=== PATIENT | female | born 1955 | race Caucasian/White ===

== ENCOUNTER 2020-02-18 10:23 | Emergency (ER) | payer MEDICARE, MEDICAID, SELFPAY ==
[2020-02-18 10:27] VITALS: BP 145/127; PULSE 98; RESP 16; TEMP 36.8; O2SAT 99; BMI 25.1
--- NOTE | 2020-02-18 10:38 | CT_ITS ---
WS: [id number] CT ABDOMEN PELVIS TECHNIQUE: Contrast-enhanced CT of the abdomen and pelvis with coronal and sagittal reformatted image s. CLINICAL INFORMATION: pain COMPARISON: None. DLP: 452.[address] scans at [facility] use at least one of these dose optimization techniques: automat ed exposure control; mA and/or kV adjustment per patient size (includes targeted exams where dose is matched to clinical indication); or iterative reconstruction. FINDINGS: Bowel wall thickening with surrounding induration and submucosal enhancement involving the right asce nding colon suspicious for colitis. Apparent stricture at the right hepatic flexure transverse colon junction. Transverse colon constipation. Recommend follow-up with colonoscopy. Normal ileocecal valve. Descending colon is decompressed. Normal sigmoid colon. No free fluid in the pelvis. Evidence of postoperative changes involving the rectum. Normal liver. Normal portal vein and splenic vein. Small hepatic cyst at the dome the liver measuring 9 mm. Small left renal cyst measurin g 12 mm. Normal spleen. Normal GE junction. Adrenal glands are normal. Small left adrenal adenoma maki suring 14 mm. Normal renal parenchymal enhancement. No hydronephrosis. Aortic calcification. Normal pancreas. No abdominal lymphadenopathy. Slightly aneurysmal infrarenal abdominal aorta measuring 2.1 x 2.3 cm. Lung bases are well aerated. Attempted notification STIVEN Zuñiga at 02/18/2020 12:[address]/CT abdomen pelvis w con* [id number] IMPRESSION: 1. Induration with submucosal enhancement and slight inflammatory stranding in volving the right ascending colon consistent with colitis. 2. Apparent stricturing involving the right hepatic flexure and transverse col on junction. Recommend further evaluation with colonoscopy. 3. Transverse colon constipation. 4. No free fluid in the pelvis. 5. Evidence of prior low rectal anastomosis. 6. Small slightly aneurysmal infrarenal abdominal aorta measuring 2.1 x 2.3 cm . 7. Small hepatic cyst and left renal cyst.
--- NOTE | 2020-02-18 10:38 | ED_ITS ---
HPI - Abdominal Pain General: Chief Complaint: Abdominal Pain Stated Complaint: ABD PAIN/N/V Time Seen by Provider: 02/18/20 10:25 History of Present Illness: HPI narrative: Patient arrives via ambulance with complaint of left lower quadrant abdominal pain. Patient says it woke her up from sleep this morning she has had some problems constipation last couple days says she has a history of a large bowel resection. Did take a Zofran this morning she said which helps. Denies any fever chills vomiting does have some nausea MD elicited complaint: abdominal pain Pertinent past history: constipation Onset (ago): hour(s) Pain Consistency: constant Location: LLQ Severity: severe Quality: cramping and aching Radiation: none Migration to: no migration Exacerbating factors: nothing Relieving factors: nothing Associated Symptoms: Reports nausea; Denies chills and fever(s) Review of Systems Const: Denies: fever(s), chills or body aches Eyes: Denies: change in vision or blurry vision ENMT: Denies: throat pain or nasal congestion Card: Denies: chest pain or dyspnea on exertion Resp: Denies: dyspnea, productive cough or non-productive cough GI: Reports: abdominal pain and nausea Musc: Denies: extremity pain Skin/Breast: Denies: rash Neuro: Denies: headache(s) Psych: Denies: anxiety or depression Simon/Lymph: Denies: easy bruising PFSH ED PFSH: Social History (Updated 02/18/20 @ 10:33 by Debbi Avila RN) Smoking and tobacco status: current every day smoker Alcohol intake: current Substance/Drug Use: current Substance/Drug use frequency: daily Substance/Drug use type: Marijuana Physical Exam Const: COMMON NORMALS: no acute distress, average body habitus and patient oriented x3 HENMT: COMMON NORMALS: normocephalic HEAD & SCALP: normal to inspection and normocephalic FACE & SINUS: normal facial exam Eye: COMMON NORMALS: conjunctivae normal GENERAL EYE: appearance normal, both eyes and all related structures CONJUNCTIVA: Yes conjunctivae normal Neck/C-Spine: COMMON NORMALS: no JVD Chest: COMMONS NORMALS: normal inspection of the chest Resp: COMMON NORMALS: normal respiratory effort and clear to auscultation bilaterally AUSCULTATION: clear to auscultation bilaterally Cardio: COMMON NORMALS: no JVD, regular rate and regular rhythm RATE: regular rate RHYTHM: regular rhythm GI: COMMON NORMALS: Normal to inspection, nondistended, normoactive bowel sounds present PALPATION: Yes Tenderness to palpation present (GI) Details: LLQ Extremity: COMMON NORMALS: normal to inspection and full ROM Neuro: COMMON NORMALS: patient oriented x3 Course Vital Signs: Vital signs: Vital Signs Temperature 98.2 F 02/18/20 10:27 Pulse Rate 105 H 02/18/20 11:00 Respiratory Rate 24 H 02/18/20 11:00 Blood Pressure 123/91 02/18/20 11:00 Pulse Oximetry 98 02/18/20 11:00 MDM - Abdominal Pain MDM Narrative: Medical decision making narrative: Discussed case with Dr. Glasgow went over radiology and lab results. Patient is aware of x-ray results and that she has some colitis and that she needs to get her colonoscopy schedul ed. Patient states she is seen a specialist in [place] who is possibly referred to a specialist who does colonoscopies for people with the problems that she has. She saw her primary child care aide just last week and had lab work done and walk get a referral for colonoscopy from them. Patient does have pain medicine at home. Is to follow back up here if significant worsening problems happen Lab Data: Labs: Lab Results 02/18/20 02/18/20 02/18/20 Range/Units 10:51 10:51 11:06 WBC 17.2 H (4.0-10.0) 10^3/ uL RBC 4.58 (4.1-5.3) 10^6/u L Hgb 13.8 (11.5-15.3) g/dL Hct 41.1 (37.0-47.0) % MCV 89.7 (81-99) fL MCH 30.1 (28.0-34.0) pg MCHC 33.6 (30.0-36.0) g/dL RDW 12.7 (12.1-15.1) % Plt Count 246 (130-400) 10^3/c mm MPV 10.6 H (7.4-10.4) fL Neut % (Auto) 91.3 % Lymph % (Auto) 6.3 % [place] % (Auto) 1.7 % Eos % (Auto) 0.0 % Baso % (Auto) 0.3 % Neut # (Auto) 15.66 H (1.8-7.7) 10^3/u L Lymph # (Auto) 1.1 (0.8-4.8) 10^3/u L [place] # (Auto) 0.3 (0.2-0.9) 10^3/u L Eos # (Auto) 0.0 (0.0-0.8) 10^3/u L Baso # (Auto) 0.1 (0.0-0.1) 10^3/u L Nucleated RBC % (a uto) 0 % Nucleated RBCs # 0.0 /100WBC Sodium 136 (136-145) mmol/L Potassium 4.2 (3.5-5.1) mmol/L Chloride 104 (98-107) mmol/L Carbon Dioxide 20 L (22-29) mmol/L Anion Gap 16.2 (5-19) BUN 13 (8-23) mg/dL Creatinine 0.7 (0.5-0.9) mg/dL GFR Calculation 84.0 L (90-130) mL/min Glucose 132 H (65-115) mg/dL Calculated Osmolal ity 280 L (285-295) mOsm/k g Calcium 9.6 (8.5-10.5) mg/dL Total Bilirubin 0.5 (0.15-1.2) mg/dL AST 17 (0-32) U/L ALT 10 (0-33) U/L Alkaline Phosphata se 144 H (35-105) IU/L Total Protein 7.2 (6.6-8.7) g/dL Albumin 4.4 (3.5-5.2) g/dL Globulin 2.8 (1.3-4.6) g/dL Lipase 22 (13-60) U/L Urine Color Yellow (Yellow) Urine Appearance Clear (CLEAR) Urine pH 7 (5-7) Ur Specific Gravit y 1.010 (1.005-1.030) Urine Protein Trace (Negative) Urine Glucose (UA) Norm (Normal) Urine Ketones 2+ H (Negative) Urine Blood Neg (Negative) Urine Nitrate Negative (Negative) Urine Bilirubin 1+ H (NEGATIVE) Urine Urobilinogen 4 H (Negative) mg/dL Ur Leukocyte Libby ase Negative (Negative) Urine RBC 0-4 H (0-2) /hpf Urine WBC 0-4 H (0-5) /hpf Ur Squamous Epith Cells 5-10 H (0-5) Amorphous Sediment Not Reportable Urine Bacteria 1+ H (NONE) Urine Mucus 3+ Discharge Plan Discharge Patient Disposition: Home Clinical Impression: Colitis Condition: Stable Prescriptions: New Flagyl 500 mg tablet 500 mg PO BID 7 Days Qty: 14 RF: 0 ciprofloxacin HCl 500 mg tablet 500 mg PO BID Qty: 14 RF: 0 No Action simvastatin 10 mg tablet 10 mg PO DAILY RF: 0 oxycodone-acetaminophen 5-325 mg tablet 1 tab PO TID PRN (Reason: Pain) RF: 0 amlodipine 10 mg tablet 10 mg PO DAILY RF: 0 albuterol sulfate 90 mcg/actuation HFA aerosol inhaler 1 puff INHALATION Q6H PRN (Reason: Shortness Of Breath) RF: 0 amitriptyline 100 mg tablet 100 mg PO DAILY RF: 0 Discharge Orders: Discharge Order (Routine); Ordered 02/18/20 Ordered By: Paolo Bahena Discharge Diet: Clear Liquid Discharge Activity: Increase activity as tolerated Patient Instructions: Infectious Colitis (ED) Activity Restrictions/Additional Instructions: Follow-up with medical provider as directed. Take medications as prescribed. Return to the ER or your medical provider if condition worsens. Please read and understand discharge instructions. If any questions ask please. Make sure you call your specialist to see in [place] to get that colonoscopy scheduled as soon as possible continue on laxatives and stool softeners and high-fiber diet. Coding Level of Care Code ED Air Breaker Operator for Chg Fwd Exam Comprehensive
[2020-02-18 10:59] LABS: Basophils # 0.1 10^3/uL (0.0-0.1); Basophils % 0.3 %; Hematocrit 41.1 % (37.0-47.0); Hemoglobin 13.8 g/dL (11.5-15.3); Lymphocytes # 1.1 10^3/uL (0.8-4.8); Lymphocytes % 6.3 %; Mean Corpuscular HGB Conc 33.6 g/dL (30.0-36.0); Mean Corpuscular Hemoglobin 30.1 pg (28.0-34.0); Mean Corpuscular Volume 89.7 fL (81-99); Mean Platelet Volume 10.6 fL (7.4-10.4); Monocytes # 0.3 10^3/uL (0.2-0.9); Monocytes % 1.7 %; Neutrophils # 15.66 10^3/uL (1.8-7.7); Neutrophils % 91.3 %; Nucleated Red Blood Cells % 0 %; Platelet Count 246 10^3/cmm (130-400); Red Blood Count 4.58 10^6/uL (4.1-5.3); Red Cell Distribution Width 12.7 % (12.1-15.1); White Blood Count 17.2 10^3/uL (4.0-10.0)
[2020-02-18 11:00] VITALS: BP 123/91; PULSE 105; RESP 24; O2SAT 98
[2020-02-18] MEDS: sodium chloride 0.9% 1,000 ML 999 ML IV (11:21)
[2020-02-18 11:26] LABS: Alanine Aminotransferase 10 U/L (0-33); Albumin Level 4.4 g/dL (3.5-5.2); Alkaline Phosphatase 144 IU/L (35-105); Blood Urea Nitrogen 13 mg/dL (8-23); Calcium 9.6 mg/dL (8.5-10.5); Carbon Dioxide 20 mmol/L (22-29); Chloride 104 mmol/L (98-107); Globulin 2.8 g/dL (1.3-4.6); Glucose 132 mg/dL (65-115); Lipase 22 U/L (13-60); Osmolality Calculated 280 mOsm/kg (285-295); Sodium 136 mmol/L (136-145); Total Bilirubin 0.5 mg/dL (0.15-1.2); Total Protein 7.2 g/dL (6.6-8.7)
[2020-02-18 11:30] LABS: Anion Gap 16.2 (5-19); Aspartate Amino Transferase 17 U/L (0-32); Potassium 4.2 mmol/L (3.5-5.1)
[2020-02-18 11:37] LABS: Bilirubin Urine 1+ (NEGATIVE); Blood Urine Neg (Negative); Glucose Urine UA Norm (Normal); Ketones Urine 2+ (Negative); Nitrate Urine Negative (Negative); Protein Urine Trace (Negative); Urine Appearance Clear (CLEAR); Urine Color Yellow (Yellow); pH Urine 7 (5-7)
[2020-02-18 11:38] LABS: Add Urine Microscopic? YES; Leukocyte Esterase Urine Negative (Negative); Urobilinogen Urine 4 mg/dL (Negative)
[2020-02-18 11:45] LABS: Mucus Urine 3+
[2020-02-18 11:46] LABS: Add Urine Culture? No; Bacteria Urine 1+; RBC Urine 0-4 /hpf (0-2); WBC Urine 0-4 /hpf (0-5)
[2020-02-18] MEDS: iohexol 300 mg/mL 100 mL Btl IV (11:47)
[2020-02-18 12:40] VITALS: RESP 18
[2020-02-18] MEDS: morphine 4 mg/mL SDV 1 mL IVP (12:40)
[2020-02-18] MEDS: ondansetron 2 mg/ML SDV 2 mL 4 MG IVP (12:41)
[2020-02-18 13:06] VITALS: BP 154/83; PULSE 85; RESP 16; TEMP 37.2; O2SAT 97
== END 2020-02-18 13:14 | disposition home or self-care (01) ==
PROVIDERS: Emergency Provider Nurse Practitioner Family
DX: K52.9 Noninfective gastroenteritis and colitis, unspecified (principal); F17.210 Nicotine dependence, cigarettes, uncomplicated
CPT/HCPCS: 12345; 74177; 80053; 81001; 83690; 85025; 96361; 96374; 96375; 99283; J2270; J2405; J7030; Q9967

== ENCOUNTER 2020-08-12 09:38 | Emergency (ER) | payer MEDICARE, MEDICAID, SELFPAY ==
[2020-08-12 09:52] VITALS: PULSE 93; RESP 18; TEMP 36.9; O2SAT 97; BMI 23.3
--- NOTE | 2020-08-12 10:09 | W.ED.SOB ---
HPI - SOB/Dyspnea General: Chief Complaint: Shortness of Breath/Dyspnea Stated Complaint: Cough/Pain in chest/back Time Seen by Provider: 08/12/20 09:42 History of Present Illness: HPI Narrative: 64-year-old female presents emergency room with complaint of right-sided chest pain subjective fever cough myalgias. She has some distortion of her sense of taste and smell as well. She denies any loose stools. She regularly smokes. She is not on oxygen usually. No history of heart disease pain does not radiate into the neck or back no diaphoresis cough is been moderately productive. MD elicited complaint: shortness of breath, cough, pain with inspiration and chest pain Pertinent past history: COPD Onset (ago): day(s) (2) Timing: constant Severity: moderate Exacerbating factors: coughing and inspiration Relieving factors: rest Known history of: COPD Associated symptoms: Reports chest congestion, chest pain and cough; Deny abdominal pain, diaphoresis, dizziness, extremity pain, fever(s), hemoptysis, lightheadedness, myalgias, nausea, orthopnea, palpitations, paresthesias, polydipsia, polyuria, rash, sense of impending doom, syncope or vomiting Treatment prior to arrival: none Review of Systems Const: Denies: fever(s) or diaphoresis ENMT: Denies: throat pain, ear or mastoid pain, nasal discharge or nasal congestion Card: Reports: chest pain; Denies: palpitations, lightheadedness, syncope or orthopnea Resp: Reports: chest congestion; Denies: hemoptysis GI: Denies: abdominal pain, nausea or vomiting : Denies: flank pain, difficulty voiding, dysuria, urinary frequency or urinary urgency Musc: Denies: extremity pain Skin/Breast: Denies: rash or pruritus Neuro: Denies: dizziness Endo: Denies: polyuria or polydipsia PFSH ED PFSH: Medical History Bipolar 1 disorder Chronic back pain Chronic neck pain Dyslipidemia History of bowel disorder History of hypertension History of nausea History of neck swelling Surgical History History of hysterectomy History of intestinal surgery History of neck surgery Family History Other CAD (coronary artery disease) Cancer Social History Smoking and tobacco status: current every day smoker cigarettes Packs smoked per day: 0.25 Alcohol intake: current Alcohol intake frequency: few times a week Alcohol type: wine Physical Exam Const: COMMON NORMALS: no acute distress GENERAL APPEARANCE: cooperative and comfortable ORIENTATION/CONSCIOUSNESS: Yes awake, Yes oriented to person, Yes oriented to place and Yes oriented to time HENMT: COMMON NORMALS: normocephalic, atraumatic and hearing grossly normal bilaterally HEAD & SCALP: normocephalic and atraumatic Neck/C-Spine: COMMON NORMALS: no JVD Resp: COMMON NORMALS: normal respiratory effort, No retractions and No use of accessory muscles AUSCULTATION: rhonchi right lower and wheezes Cardio: COMMON NORMALS: no JVD, regular rate, regular rhythm and No murmurs present (Cardio) RATE: regular rate RHYTHM: regular rhythm GI: COMMON NORMALS: Soft to palpation and No hepatosplenomegaly present AUSCULTATION: Yes normoactive bowel sounds PALPATION: Yes Soft to palpation, No Tenderness to palpation present (GI), No Guarding due to palpation present (GI) and Yes No hepatosplenomegaly present Extremity: COMMON NORMALS: normal to inspection, capillary refill normal, no clubbing, cyanosis or edema, no calf tenderness and no pedal edema Neuro: SENSORIUM/ORIENTATION: Yes oriented to person, Yes oriented to place and Yes oriented to time Skin: COMMON NORMALS: no rashes or lesions noted GENERAL SKIN EXAM: no rashes or lesions noted Course Vital Signs: Vital signs: Vital Signs Temperature 98.4 F 08/12/20 09:52 Pulse Rate 93 08/12/20 09:52 Respiratory Rate 18 08/12/20 09:52 Pulse Oximetry 97 08/12/20 09:52 MDM - SOB/Dyspnea MDM Narrative: Medical decision making narrative: Reviewed labs and imaging that were done today. PCR Covid pending. Started on Levaquin for pneumonia self quarantine until results are back monitor O2 sats at home return if has worsening problems. Lab Data: Labs: Lab Results 08/12/20 08/12/20 08/12/20 Range/Units 10:21 11:10 11:10 WBC 8.7 (4.0-10.0) 10^3/ uL RBC 4.74 (4.1-5.3) 10^6/u L Hgb 14.4 (11.5-15.3) g/dL Hct 43.9 (37.0-47.0) % MCV 92.6 (81-99) fL MCH 30.4 (28.0-34.0) pg MCHC 32.8 (30.0-36.0) g/dL RDW 12.9 (12.1-15.1) % Plt Count 272 (130-400) 10^3/c mm MPV 10.4 (7.4-10.4) fL Neut % (Auto) 53.1 % Lymph % (Auto) 37.2 % [place] % (Auto) 5.6 % Eos % (Auto) 3.2 % Baso % (Auto) 0.7 % Neut # (Auto) 4.64 (1.8-7.7) 10^3/u L Lymph # (Auto) 3.3 (0.8-4.8) 10^3/u L [place] # (Auto) 0.5 (0.2-0.9) 10^3/u L Eos # (Auto) 0.3 (0.0-0.8) 10^3/u L Baso # (Auto) 0.1 (0.0-0.1) 10^3/u L Nucleated RBC % (a uto) 0 % Nucleated RBCs # 0.0 /100WBC D-Dimer 2.81 H (0-0.59) ug/mIFE U Sodium (136-145) mmol/L Potassium (3.5-5.1) mmol/L Chloride (98-107) mmol/L Carbon Dioxide (22-29) mmol/L Anion Gap (5-19) BUN (8-23) mg/dL Creatinine (0.5-0.9) mg/dL GFR Calculation (90-130) mL/min Glucose (65-115) mg/dL Calculated Osmolal ity (285-295) mOsm/k g Calcium (8.5-10.5) mg/dL Total Bilirubin (0.15-1.2) mg/dL AST (0-32) U/L ALT (0-33) U/L Alkaline Phosphata se (35-105) IU/L Total Protein (6.6-8.7) g/dL Albumin (3.5-5.2) g/dL Globulin (1.3-4.6) g/dL SARS-CoV-2 Ag (Rap id) Negative (Negative) 08/12/20 Range/Units 11:10 WBC (4.0-10.0) 10^3/ uL RBC (4.1-5.3) 10^6/u L Hgb (11.5-15.3) g/dL Hct (37.0-47.0) % MCV (81-99) fL MCH (28.0-34.0) pg MCHC (30.0-36.0) g/dL RDW (12.1-15.1) % Plt Count (130-400) 10^3/c mm MPV (7.4-10.4) fL Neut % (Auto) % Lymph % (Auto) % [place] % (Auto) % Eos % (Auto) % Baso % (Auto) % Neut # (Auto) (1.8-7.7) 10^3/u L Lymph # (Auto) (0.8-4.8) 10^3/u L [place] # (Auto) (0.2-0.9) 10^3/u L Eos # (Auto) (0.0-0.8) 10^3/u L Baso # (Auto) (0.0-0.1) 10^3/u L Nucleated RBC % (a uto) % Nucleated RBCs # /100WBC D-Dimer (0-0.59) ug/mIFE U Sodium 138 (136-145) mmol/L Potassium 4.0 (3.5-5.1) mmol/L Chloride 103 (98-107) mmol/L Carbon Dioxide 24 (22-29) mmol/L Anion Gap 15.0 (5-19) BUN 10 (8-23) mg/dL Creatinine 0.6 (0.5-0.9) mg/dL GFR Calculation 100.3 (90-130) mL/min Glucose 88 (65-115) mg/dL Calculated Osmolal ity 284 L (285-295) mOsm/k g Calcium 9.7 (8.5-10.5) mg/dL Total Bilirubin 0.4 (0.15-1.2) mg/dL AST 13 (0-32) U/L ALT 11 (0-33) U/L Alkaline Phosphata se 123 H (35-105) IU/L Total Protein 7.3 (6.6-8.7) g/dL Albumin 4.4 (3.5-5.2) g/dL Globulin 2.9 (1.3-4.6) g/dL SARS-CoV-2 Ag (Rap id) (Negative) Discharge Plan Discharge Patient Disposition: Home Clinical Impression: Community acquired pneumonia, Suspected 2019-nCoV infection Condition: Stable Prescriptions: New levofloxacin 500 mg tablet 500 mg PO DAILY 7 Days RF: 0 No Action oxycodone-acetaminophen 5-325 mg tablet 1 tab PO TID PRN (Reason: Pain) RF: 0 albuterol sulfate 90 mcg/actuation HFA aerosol inhaler 1 puff INHALATION Q6H PRN (Reason: Shortness Of Breath) RF: 0 amitriptyline 100 mg tablet 100 mg PO DAILY RF: 0 Discharge Orders: Discharge ED (Routine); Ordered 08/12/20 Ordered By: Abilio Root Discharge Diet: Usual diet Discharge Activity: Increase activity as tolerated Activity Restrictions/Additional Instructions: Your tested for COVID-19. Recommend remain remain self quarantined until the results are back. You did have a pneumonia on the chest x-ray start antibiotics once daily for 7 days. Monitor your oxygen sat if it consistently falls below 92% return to the emergency room. If you have any other worsening of symptoms return to the emergency room. Coding Level of Care Code ED Post Hole Digging Machine Operator for Amy Gomez
--- NOTE | 2020-08-12 10:10 | XRR_ITS ---
PROCEDURE INFORMATION: Exam: XR Chest, 1 View Exam date and time: 08/12/2020 10:11 AM Age: 64 years old Clinical indication: Dyspnea TECHNIQUE: Imaging protocol: XR of the chest Views: 1 view. COMPARISON: No relevant prior studies available. FINDINGS: Lungs: There is a hazy airspace opacity in the right lower lung, concerning for early pneumonia. Pleural spaces: Unremarkable. No pleural effusion. No pneumothorax. Heart/Mediastinum: Unremarkable. No cardiomegaly. Bones/joints: Lower cervical spine fusion hardware seen. XR/XR chest 1V portable [id number] IMPRESSION: Imaging findings concerning for early right lower lobe pneumonia. Clinical correlation is recommended.
[2020-08-12 11:16] LABS: SARS Covid-2 Antigen Negative (Negative)
[2020-08-12] MEDS: dexamethasone 4 mg/mL INJ 6 MG IVP (11:20)
[2020-08-12] MEDS: levofloxacin-dextrose 5 % 750 MG/150 ML PREMIX 100 MG IV (11:21)
[2020-08-12 11:27] LABS: Basophils # 0.1 10^3/uL (0.0-0.1); Basophils % 0.7 %; Eosinophils # 0.3 10^3/uL (0.0-0.8); Eosinophils % 3.2 %; Hematocrit 43.9 % (37.0-47.0); Hemoglobin 14.4 g/dL (11.5-15.3); Lymphocytes # 3.3 10^3/uL (0.8-4.8); Lymphocytes % 37.2 %; Mean Corpuscular HGB Conc 32.8 g/dL (30.0-36.0); Mean Corpuscular Hemoglobin 30.4 pg (28.0-34.0); Mean Corpuscular Volume 92.6 fL (81-99); Mean Platelet Volume 10.4 fL (7.4-10.4); Monocytes # 0.5 10^3/uL (0.2-0.9); Monocytes % 5.6 %; Neutrophils # 4.64 10^3/uL (1.8-7.7); Neutrophils % 53.1 %; Nucleated Red Blood Cells % 0 %; Platelet Count 272 10^3/cmm (130-400); Red Blood Count 4.74 10^6/uL (4.1-5.3); Red Cell Distribution Width 12.9 % (12.1-15.1); White Blood Count 8.7 10^3/uL (4.0-10.0)
[2020-08-12 11:56] LABS: Alanine Aminotransferase 11 U/L (0-33); Albumin Level 4.4 g/dL (3.5-5.2); Alkaline Phosphatase 123 IU/L (35-105); Aspartate Amino Transferase 13 U/L (0-32); Blood Urea Nitrogen 10 mg/dL (8-23); Calcium 9.7 mg/dL (8.5-10.5); Carbon Dioxide 24 mmol/L (22-29); Chloride 103 mmol/L (98-107); Globulin 2.9 g/dL (1.3-4.6); Glomerular Filtration Rate 100.3 mL/min (90-130); Glucose 88 mg/dL (65-115); Osmolality Calculated 284 mOsm/kg (285-295); Sodium 138 mmol/L (136-145); Total Bilirubin 0.4 mg/dL (0.15-1.2); Total Protein 7.3 g/dL (6.6-8.7)
[2020-08-12 11:57] LABS: D Dimer 2.81 ug/mIFEU (0-0.59)
--- NOTE | 2020-08-12 12:06 | CTR_ITS ---
PROCEDURE INFORMATION: Exam: CT Angiography Chest With Contrast Exam date and time: 08/12/2020 12:38 PM Age: 64 years old Clinical indication: Right-sided chest pain; Patient HX: C/O R sided cp w cough and subjective fever elev d-dimer; Additional info: Elevated ddimer TECHNIQUE: Imaging protocol: Computed tomographic angiography of the chest with contrast. 3D rendering (Not supervised by radiologist): MIP and/or 3D reconstructed images were created by the technologist. Radiation optimization: All CT scans at this facility use at least one of these dose optimization techniques: automated exposure control; mA and/or kV adjustment per patient size (includes targeted exams where dose is matched to clinical indication); or iterative reconstruction. Contrast material: OMNI 350; Contrast volume: 76 ml; Contrast route: INTRAVENOUS (IV); COMPARISON: CR (CHEST, ) 08/12/2020 10:15 AM RADIATION DOSE METRICS: Total DLP (mGy-cm): 500.19 FINDINGS: Pulmonary arteries: No large central pulmonary embolus identified. There is poor opacification of the distal pulmonary arterial branches, limiting evaluation. Aorta: Mild diffuse atherosclerotic disease is present. Lungs: A small calcified granuloma is noted in the posterior right lower lobe. No suspicious nodule or mass identified. No focal consolidation seen. Pleural spaces: Unremarkable. No pneumothorax. No pleural effusion. Heart: Normal heart size. There is lipomatous hypertrophy of the interatrial septum. Coronary atherosclerotic calcifications seen. Trace pericardial effusion noted. Lymph nodes: There is small calcified mediastinal lymph nodes, likely sequela of previous granulomatous disease. Liver: There is a 1.1 cm fluid attenuation lesion in the right hepatic lobe. The liver is otherwise unremarkable. Adrenal glands: There is a 1.8 cm adenoma in the left adrenal gland. The right adrenal gland is unremarkable. Bones/joints: Mild S shaped curvature of the spine and degenerative changes noted. Cervical spine fusion hardware seen. Soft tissues: Unremarkable. CT/CT angio chest PE protcl [id number] IMPRESSION: 1. No large central pulmonary embolus. Evaluation for small subsegmental pulmonary artery branches is limited. 2. No acute pathology in the chest. Radiation Dose CTDIVOL = (mGy): DLP = 500.19 (mGy-cm)
[2020-08-12] MEDS: iohexol 350 mg/mL 100 mL Btl IV (13:26)
[2020-08-14 16:05] LABS: Coronavirus Test Green County Not Detected
--- NOTE | 2020-08-15 08:13 | PC.NURSE ---
pt called and given the results of his covid test
== END 2020-08-12 14:30 | disposition home or self-care (01) ==
PROVIDERS: Emergency Provider Family Medicine
DX: J18.8 Other pneumonia, unspecified organism (principal); Z20.822 Contact with and (suspected) exposure to COVID-19; E78.5 Hyperlipidemia, unspecified; I10 Essential (primary) hypertension; F17.210 Nicotine dependence, cigarettes, uncomplicated
CPT/HCPCS: 12345; 36415; 71045; 71275; 80053; 85025; 85378; 87040; 87426; 87635; 96365; 96366; 96375; 99283; 99284; J1100; J1956; Q9967

== ENCOUNTER 2020-08-28 10:03 | Outpatient (CLI) | payer MEDICARE, MEDICAID, SELFPAY ==
[2020-08-28 10:46] LABS: Basophils # 0.1 10^3/uL (0.0-0.1); Basophils % 0.6 %; Eosinophils # 0.1 10^3/uL (0.0-0.8); Eosinophils % 0.7 %; Hematocrit 39.6 % (37.0-47.0); Hemoglobin 13.2 g/dL (11.5-15.3); Lymphocytes # 2.9 10^3/uL (0.8-4.8); Lymphocytes % 28.4 %; Mean Corpuscular HGB Conc 33.3 g/dL (30.0-36.0); Mean Corpuscular Hemoglobin 30.3 pg (28.0-34.0); Mean Platelet Volume 10.2 fL (7.4-10.4); Monocytes # 0.5 10^3/uL (0.2-0.9); Monocytes % 4.8 %; Neutrophils # 6.62 10^3/uL (1.8-7.7); Neutrophils % 65.2 %; Nucleated Red Blood Cells % 0 %; Platelet Count 287 10^3/cmm (130-400); Red Blood Count 4.35 10^6/uL (4.1-5.3); Red Cell Distribution Width 12.5 % (12.1-15.1); White Blood Count 10.2 10^3/uL (4.0-10.0)
[2020-08-28 11:10] LABS: Creatinine Urine, Random 47 mg/dL (28-217); Microalbum Creatinine Ratio Ur 21 mg/dL (0-20); Microalbumin Random Urine 1 ug/dL (0-20)
[2020-08-28 11:15] LABS: Alanine Aminotransferase 8 U/L (0-33); Albumin Level 4.2 g/dL (3.5-5.2); Alkaline Phosphatase 109 IU/L (35-105); Anion Gap 13.2 (5-19); Aspartate Amino Transferase 12 U/L (0-32); Blood Urea Nitrogen 13 mg/dL (8-23); Calcium 9.4 mg/dL (8.5-10.5); Carbon Dioxide 21 mmol/L (22-29); Chloride 104 mmol/L (98-107); Chol HDL Ratio 4.92 mg/dL (0.0-4.40); Cholesterol 246 mg/dL (0-200); Globulin 2.8 g/dL (1.3-4.6); Glomerular Filtration Rate 83.7 mL/min (90-130); Glucose 104 mg/dL (65-115); HDL Cholesterol 50 mg/dL (60-100); LDL Cholesterol Calculated 162 mg/dL (50-129); LDL HDL Ratio 3.24 RATIO (0.00-3.22); Osmolality Calculated 278 mOsm/kg (285-295); Potassium 4.2 mmol/L (3.5-5.1); Sodium 134 mmol/L (136-145); Total Bilirubin 0.4 mg/dL (0.15-1.2); Triglycerides 169 mg/dL (0-150)
== END 2020-08-28 10:04 | disposition home or self-care (01) ==
PROVIDERS: PCP Family Medicine; Visit Provider Family Medicine
DX: I10 Essential (primary) hypertension (principal)
CPT/HCPCS: 36415; 80053; 80061; 82044; 85025

== ENCOUNTER 2020-09-06 11:45 | Emergency (ER) | payer MEDICARE, MEDICAID, SELFPAY ==
--- NOTE | 2020-09-06 11:49 | XR_ITS ---
WS: [id number] RIGHT SHOULDER: 3 VIEW(S) TECHNIQUE: Internal and external rotation with Y view. HISTORY: fall/pain COMPARISON: None available. No fracture or dislocation or soft tissue abnormality. Moderate AC joint narrowing. No fractures. Mild narrowing of the glenohumeral joint. XR/XR shoulder RT min 2V* [id number] IMPRESSION: Mild AC joint and glenohumeral joint arthritis.
[2020-09-06 12:02] VITALS: BP 118/79; PULSE 93; RESP 18; TEMP 36.6; O2SAT 97; BMI 22.6
--- NOTE | 2020-09-06 12:22 | ED_ITS ---
HPI - Fall General: Chief Complaint: Fall Stated Complaint: post fall/Rt shoulder Time Seen by Provider: 09/06/20 12:09 Source: patient Mode of arrival: ambulatory Limitations: no limitations History of Present Illness: HPI Narrative: The patient is a 65-year-old female with a prior history of right rotator cuff surgery who presents to the emergency department following a fall 5 days ago. She was holding onto her dog with a leash and the dog run of chasing something and pulled her off the porch, she landed on her right shoulder on the ground. She denies hitting her head or losing consciousness. She has had right shoulder pain since then. She was hoping the pain would subside but the pain is not getting any better and so she is here to be seen. She is unable to move her right shoulder joint. She also has a laceration on the webspace between her left thumb her left index finger where the leash was during the fall. She has been treating it with peroxide. MD complaint: fall Onset (ago): day(s) (5) Fall from: from height (distance) Fall witnessed: no Place fall occurred: home Loss of consciousness: None Prolonged down time: no Symptoms prior to fall: none Context: other (was pulled by her dog) Location of injury - extremities: Right: shoulder Quality: sharp Associated symptoms-after fall: Denies abdominal pain, headache(s) or neck pain Review of Systems General: Reports: 10 or more systems reviewed and unremarkable except in HPI and below Const: Denies: fever(s), chills or body aches Eyes: Denies: change in vision or blurry vision ENMT: Denies: throat pain, enlarged tonsils, odynophagia, hoarseness, mouth pain or swelling of lips/tongue Card: Denies: palpitations, irregular heart rhythm, edema or swelling of feet/ankles Resp: Denies: dyspnea, productive cough or non-productive cough GI: Denies: abdominal pain, nausea or vomiting : Denies: flank pain, difficulty voiding, dysuria, urinary frequency, urinary urgency or urinary hesitancy Musc: Reports: extremity pain and joint pain; Denies: neck pain, back pain or extremity swelling Skin/Breast: Reports: sores; Denies: rash, pruritus or erythema Neuro: Denies: headache(s), numbness in extremities or weakness in extremities Endo: Denies: polyuria, polydipsia or tired all the time PFSH ED PFSH: Medical History (Reviewed 09/06/20 @ 13:11 by Yamilet Simms [place] [facility] Benign essential HTN Bipolar 1 disorder Chronic back pain Chronic neck pain Dyslipidemia History of bowel disorder History of nausea History of neck swelling Surgical History History of hysterectomy History of intestinal surgery History of neck surgery Family History (Reviewed 09/06/20 @ 13:11 by Yamilet Simms MD[place] [facility] [place] Other CAD (coronary artery disease) Cancer Social History (Reviewed 09/06/20 @ 13:11 by Yamilet Simms MD, [facility] [place] Smoking and tobacco status: current every day smoker cigarettes Packs smoked per day: 0.5 Alcohol intake: current Alcohol intake frequency: few times a week Alcohol type: wine Physical Exam Const: COMMON NORMALS: no acute distress, average body habitus, patient oriented x3, no limitations, healthy appearing, alert and well nourished HENMT: COMMON NORMALS: normocephalic, atraumatic and moist oral mucous membranes HEAD & SCALP: normocephalic and atraumatic Neck/C-Spine: COMMON NORMALS: no meningeal signs and no JVD Resp: COMMON NORMALS: normal respiratory effort, No retractions, No use of accessory muscles, clear to auscultation bilaterally and percussion normal AUSCULTATION: clear to auscultation bilaterally PERCUSSION: percussion normal Cardio: COMMON NORMALS: no JVD, regular rate, regular rhythm, S1 normal heart sound present, S2 normal heart sound present, No gallops present (Cardio), No clicks present (Cardio), No murmurs present (Cardio), No rub (Cardio) and Peripheral pulses 2+ throughout RATE: regular rate RHYTHM: regular rhythm HEART SOUNDS: S1 normal heart sound present and S2 normal heart sound present PERIPHERAL PULSES: Peripheral pulses 2+ throughout GI: COMMON NORMALS: Normal to inspection, nondistended, normoactive bowel sounds present, Soft to palpation, non-tender, No hepatosplenomegaly present, no masses and no bruits PALPATION: Yes Soft to palpation and Yes No hepatosplenomegaly present Extremity: COMMON NORMALS: normal to inspection, full ROM, capillary refill normal, no calf tenderness and no pedal edema RIGHT UPPER EXTREMITY: Yes shoulder joint (Tender to palpation posteriorly.) Right shoulder: Yes palpation, Yes Right shoulder joint ROM exam (Reduced range of motion in all directions due to pain) and Yes Right shoulder joint neurovascular exam (Intact) Neuro: COMMON NORMALS: patient oriented x3 SENSORIUM/ORIENTATION: Yes alert MENINGEAL SIGNS: Yes no meningeal signs Skin: COMMON NORMALS: no rashes or lesions noted, turgor normal, no jaundice, no petechiae and no mottling GENERAL SKIN EXAM: no rashes or lesions noted and turgor normal TRAUMA: laceration (She has a jagged laceration to the webspace between the left thumb and inde) contaminated (There is some whitish slough at the base of the wound. No drainage or bleeding) Course Reevaluation(s): Reevaluation #1: Discussed her imaging findings with her. No acute findings. We will discharge her home with a prescription for pain medication. She will follow-up with her primary care provider for an MRI to assess her rotator cuff muscles. Time: 12:44 Vital Signs: Vital signs: Vital Signs Temperature 97.9 F 09/06/20 12:02 Pulse Rate 88 09/06/20 12:56 Respiratory Rate 18 09/06/20 12:56 Blood Pressure 139/81 09/06/20 12:56 Pulse Oximetry 96 09/06/20 12:56 MDM - Fall MDM Narrative: Medical decision making narrative: 65-year-old female patient who fell off her porch 5 days ago when her dog pulled her off the porch and landed on her right shoulder. She has had right shoulder pain since then with limitation of movement of the right shoulder joint. She has had prior rotator cuff surgery on that right shoulder joint. Evaluation in the ED is negative for acute fracture or dislocation but she has significantly reduced range of motion, I think she may have injured her rotator cuff muscles. She is going to be discharged home with a prescription for pain medications and is to follow-up with her primary care provider for an MRI of the shoulder joint. Medical Records: Attestation: I reviewed the patient's medical records. Imaging Data^: Xray Ortho: Attestation: I personally reviewed and interpreted this imaging study as follows: Radiologist's impression: [address] [address] XRay Report Signed Patient: Nena Mahan #: [id number] : 5Acct#:[id number] Age/Sex: 65 / FADM Date: 09/06/20 Loc: ERRoom/Bed: Attending Dr: Ordering Provider/Ordering MD: Celia Kramer Date of Service: 09/06/20 Procedure(s): XR shoulder RT min 2V* [id number] Accession Number(s): [id number] Report Number: [id number] WS: [id number] RIGHT SHOULDER: 3 VIEW(S) TECHNIQUE: Internal and external rotation with Y view. HISTORY: fall/pain COMPARISON: None available. No fracture or dislocation or soft tissue abnormality. Moderate AC joint narrowing. No fractures. Mild narrowing of the glenohumeral joint. XR/XR shoulder RT min 2V* [id number] IMPRESSION: Mild AC joint and glenohumeral joint arthritis. Dictated By:Renee Beaver DO Signed By:Renee Beaver DOSigned Date/Time:09/06/20 1234 DD/ 1233 Discharge Plan Discharge Patient Disposition: Home Clinical Impression: Fall Qualifiers: Encounter type: initial encounter Qualified Code(s): W19.XXXA - Unspecified fall, initial encounter Right shoulder strain Qualifiers: Encounter type: initial encounter Qualified Code(s): S46.911A - Strain of unspecified muscle, fascia and tendon at shoulder and upper arm level, right arm, initial encounter Laceration of hand Qualifiers: Encounter type: initial encounter Foreign body presence: without foreign body Laterality: left Qualified Code(s): S61.412A - Laceration without foreign body of left hand, initial encounter Condition: Stable Prescriptions: [place] 5-325 mg tablet 1 tab PO Q8H PRN (Reason: pain) Qty: 20 RF: 0 Keflex 500 mg capsule 500 mg PO Q6H 7 Days Qty: 28 RF: 0 Continued albuterol sulfate 90 mcg/actuation HFA aerosol inhaler 1 puff INHALATION Q6H PRN (Reason: Shortness Of Breath) Qty: 8.5 RF: 2 Trelegy Ellipta 200-62.5-25 mcg blister with device See Rx Instructions .ROUTE .COMPLEX RF: 0 amlodipine 10 mg tablet 10 mg PO DAILY@2099 RF: 0 amitriptyline 100 mg tablet 100 mg PO DAILY@2099 RF: 0 Discharge Orders: Discharge ED (Routine); Ordered 09/06/20 Ordered By: Yamilet Simms Referrals: Bettina Morton DO [Primary Care Provider] - 1-3 days Discharge Diet: Usual diet Discharge Activity: Increase activity as tolerated Patient Instructions: Rotator Cuff Injury (ED), Opioid Safety Activity Restrictions/Additional Instructions: Return for any new or worsening symptoms. Follow-up with your primary care provider within 3 days. You will likely need an MRI of your shoulder to assess the injury to your rotator cuff. Take the pain medications as needed for pain and antibiotic as prescribed. Continue to clean the wound with soap and water and he can apply an antibiotic ointment on the wound. Coding Level of Care Code ED Consumer Lender for Amy Gomez
[2020-09-06 12:56] VITALS: BP 139/81; PULSE 88; RESP 18; O2SAT 96
== END 2020-09-06 12:57 | disposition home or self-care (01) ==
PROVIDERS: Emergency Provider Family Medicine; PCP Family Medicine
DX: S46.911A Strain of unspecified muscle, fascia and tendon at shoulder and upper arm level, right arm, initial encounter (principal); S61.412A Laceration without foreign body of left hand, initial encounter; I10 Essential (primary) hypertension; E78.5 Hyperlipidemia, unspecified; F17.210 Nicotine dependence, cigarettes, uncomplicated; X50.9XXA Other and unspecified overexertion or strenuous movements or postures, initial encounter
CPT/HCPCS: 73030; 99282

== ENCOUNTER 2020-09-25 11:01 | Outpatient (CLI) | payer MEDICARE, MEDICAID, SELFPAY ==
--- NOTE | 2020-09-25 11:45 | MR_ITS ---
WS: [id number] MRI RIGHT SHOULDER HISTORY: acute right shoulder pain / fall COMPARISON: Radiograph 09/06/2020 TECHNIQUE: Multiplanar sequences of the shoulder joint are submitted. Patient motion artifact is causing significant compromise of this examination. There is marrow edema in the superior lateral humeral head with a nondisplaced fracture involving the greater tuberosity. Humeral head is high riding. There is additional mild AC joint arthritis. Increa se fluid like signal along the AC ligament. There is a small amount of fluid in the subacromial/subde ltoid bursa. No os acromion. Biceps tendon appears normally positioned in the bicipital groove. Very minimal atrophy of the supraspinatus muscle. There is increased amount of fluid along the superf icial aspect of the distal supraspinatus tendon and muscle. Quality of this examination does not allo w for evaluation of the distal rotator cuff tendons. There are no large tears with retraction. Insert ion site tears would easily be obscured. Limited evaluation of the labrum. MR/MR shoulder RT wo con* [id number] IMPRESSION: 1. Quality of this examination is compromised by significant motion artifact. 2. Nondisplaced acute fracture involving the superior lateral humeral head inv olving greater tuberosity. 3. Mild AC ligament sprain. 4. Increase fluid in the subacromial subdeltoid bursa. 5. Quality of this examination limits evaluation of the distal rotator cuff te ndons. Insertion site tears cannot be excluded. There are no full-thickness tea rs with retraction of the tendons.
== END 2020-09-25 11:02 | disposition home or self-care (01) ==
LOC: RADSHAW 11:02
PROVIDERS: PCP Family Medicine; Visit Provider Family Medicine
DX: S43.51XA Sprain of right acromioclavicular joint, initial encounter (principal); S42.454A Nondisplaced fracture of lateral condyle of right humerus, initial encounter for closed fracture; W19.XXXA Unspecified fall, initial encounter
CPT/HCPCS: 73221

== ENCOUNTER → 2020-09-28 12:22 | Outpatient (BNVA) | payer MEDICARE, MEDICAID, SELFPAY | PROVIDERS: PCP Family Medicine; Referring Provider Family Medicine; Visit Provider Specialist | DX: S42.253D Displaced fracture of greater tuberosity of unspecified humerus, subsequent encounter for fracture with routine healing (principal); X58.XXXD Exposure to other specified factors, subsequent encounter | CPT/HCPCS: 73030; L3670 ==

== ENCOUNTER 2020-09-28 15:38 | Outpatient (CLI) | payer MEDICARE, MEDICAID, SELFPAY | END 2020-09-28 15:39 | disposition home or self-care (01) | LOC: SPT 15:39 | PROVIDERS: PCP Family Medicine; Visit Provider Specialist | DX: Z46.89 Encounter for fitting and adjustment of other specified devices (principal); S42.251D Displaced fracture of greater tuberosity of right humerus, subsequent encounter for fracture with routine healing; X58.XXXD Exposure to other specified factors, subsequent encounter | CPT/HCPCS: L3670 ==

== ENCOUNTER → 2021-03-08 11:26 | Outpatient (BNVA) | payer MEDICARE, MEDICAID, SELFPAY | PROVIDERS: PCP Family Medicine; Visit Provider Family Medicine | DX: Z13.6 Encounter for screening for cardiovascular disorders (principal); Z12.31 Encounter for screening mammogram for malignant neoplasm of breast; M25.511 Pain in right shoulder; G89.29 Other chronic pain | CPT/HCPCS: 80053; 80061; 85025 ==

== ENCOUNTER 2021-03-09 13:19 | Outpatient (CLI) | payer MEDICARE, MEDICAID, SELFPAY ==
--- NOTE | 2021-03-09 13:30 | XR_ITS ---
WS: [id number] SHOULDER RIGHT TECHNIQUE: 3 views of the right shoulder CLINICAL INFORMATION: chronic right shoulder pain COMPARISON: September 28, 2020 FINDINGS: Mild degenerative arthritis right AC joint and glenohumeral joint with narrowing of the subacromial s pace. No evidence of acute fracture dislocation. Postoperative changes lower cervical spine. Chronic emphysematous changes right lung partially visualized. XR/XR shoulder RT min 2V* [id number] IMPRESSION: 1. Mild degenerative arthritis right AC joint and glenohumeral joint with narr owing of the subacromial space. 2. Prior healed fracture greater tuberosity 3. No new fractures. If continued pain this can be further evaluated with CT.
== END 2021-03-09 13:20 | disposition home or self-care (01) ==
PROVIDERS: PCP Family Medicine; Visit Provider Family Medicine
DX: M25.511 Pain in right shoulder (principal); G89.29 Other chronic pain; M19.011 Primary osteoarthritis, right shoulder; Z87.81 Personal history of (healed) traumatic fracture
CPT/HCPCS: 73030

== ENCOUNTER → 2021-03-19 13:40 | Outpatient (BNVA) | payer MEDICARE, MEDICAID, SELFPAY | PROVIDERS: PCP Family Medicine; Referring Provider Family Medicine; Visit Provider Specialist | DX: M25.511 Pain in right shoulder (principal); G89.29 Other chronic pain | CPT/HCPCS: 73030 ==

== ENCOUNTER → 2021-04-03 10:18 | Outpatient (BNVA) | payer MEDICARE, MEDICAID, SELFPAY | PROVIDERS: PCP Family Medicine; Visit Provider Family Medicine | DX: Z13.6 Encounter for screening for cardiovascular disorders (principal) | CPT/HCPCS: 80053; 80061; 85025 ==

== ENCOUNTER 2021-04-16 06:51 | Outpatient (CLI) | payer MEDICARE, MEDICAID, SELFPAY ==
--- NOTE | 2021-04-16 07:15 | MR_ITS ---
WS: [id number] MRI RIGHT SHOULDER HISTORY: M25.511 - Pain in right shoulder COMPARISON: 09/25/2020 TECHNIQUE: Multiplanar sequences of the shoulder joint are submitted. Moderate AC joint hypertrophy. There is a small amount of fluid through the AC ligament with thickeni ng and increased signal within the joint capsule. Moderate encroachment upon the supraspinatus tendon and muscle by AC joint osteophyte. There is a small amount of fluid in the subacromial and subdeltoi d bursa. Very slight subacromial impingement. No os acromion. Biceps tendon remains in normal positio n. No labral tear identified. Significant healing of the fracture involving the posterior lateral humeral head. Significant decreas e in amount of marrow edema with no displacement. Persistent subchondral cystic changes at the insert ion site of the greater trochanter over the posterior lateral humeral head. Fraying along the surface s of the supraspinatus tendon. No tears are identified. Mild tendinopathy. The remaining rotator cuff is intact. No muscle atrophy or edema. MR/MR shoulder RT wo con* [id number] IMPRESSION: 1. Healing fracture involving the greater tuberosity. 2. Moderate AC joint hypertrophy with an osteophyte causing moderate encroachm ent and displacement of the supraspinatus tendon and muscle at the level of the glenoid. 3. Moderate arthropathy at the AC joint. 4. Mild supraspinatus tendinopathy. No tear identified.
== END 2021-04-16 06:52 | disposition home or self-care (01) ==
LOC: RADSHAW 06:52
PROVIDERS: PCP Family Medicine; Visit Provider Specialist
DX: M25.511 Pain in right shoulder (principal); G89.29 Other chronic pain; M12.811 Other specific arthropathies, not elsewhere classified, right shoulder; M25.711 Osteophyte, right shoulder
CPT/HCPCS: 73221

== ENCOUNTER 2021-05-10 06:00 | Outpatient (RCR) | payer MEDICARE, MEDICAID, SELFPAY | END 2021-06-05 23:59 | disposition home or self-care (01) | LOC: SPT 06:00 | PROVIDERS: PCP Family Medicine; Referring Provider Specialist; Visit Provider Specialist | DX: M25.511 Pain in right shoulder (principal) | CPT/HCPCS: 97110; 97162 ==

== ENCOUNTER 2021-05-17 10:39 | Outpatient (CLI) | payer MEDICARE, MEDICAID, SELFPAY ==
--- NOTE | 2021-05-17 10:00 | MM_ITS ---
WS: [id number] BILATERAL SCREENING DIGITAL MAMMOGRAM WITH CAD HISTORY: screening mammogram COMPARISON: None available. Bilateral CC and MLO views submitted. Computer aided detection analyzed. Breast composition: There are scattered areas of fibroglandular density. No suspicious masses, microc alcifications or architectural distortion. Benign calcifications in each breast. MM/[place] [id number] IMPRESSION: BI-RADS: 2-Benign FOLLOW UP: 1 Year Follow-up
== END 2021-05-17 10:40 | disposition home or self-care (01) ==
LOC: RADSHAW 10:42
PROVIDERS: PCP Family Medicine; Visit Provider Family Medicine
DX: Z12.31 Encounter for screening mammogram for malignant neoplasm of breast (principal)
CPT/HCPCS: 77067

== ENCOUNTER 2021-06-06 06:00 | Outpatient (RCR) | payer MEDICARE, MEDICAID, SELFPAY | END 2021-07-06 23:59 | disposition home or self-care (01) | LOC: SPT 06:00 | PROVIDERS: PCP Family Medicine; Referring Provider Specialist; Visit Provider Specialist | DX: M25.511 Pain in right shoulder (principal) | CPT/HCPCS: 97110; 97150 ==

== ENCOUNTER → 2021-10-18 10:40 | Outpatient (BNVA) | payer MEDICARE, MEDICAID, SELFPAY | PROVIDERS: PCP Family Medicine; Visit Provider Specialist | DX: M19.011 Primary osteoarthritis, right shoulder (principal); M67.911 Unspecified disorder of synovium and tendon, right shoulder | CPT/HCPCS: 20610; J1100; J2795; J3301 ==

== ENCOUNTER 2021-12-11 09:30 | Outpatient (CLI) | payer MEDICARE, MEDICAID, SELFPAY ==
[2021-12-11 11:17] LABS: 25 Hydroxy Vitamin D 38 ng/mL (30-100); Anion Gap 14.5 (5-19); Blood Urea Nitrogen 9 mg/dL (8-23); Calcium 9.5 mg/dL (8.5-10.5); Carbon Dioxide 25 mmol/L (22-29); Chloride 99 mmol/L (98-107); Chol HDL Ratio 3.89 mg/dL (0.0-4.40); Cholesterol 222 mg/dL (0-200); Glomerular Filtration Rate 71.5 mL/min (90-130); Glucose 97 mg/dL (65-115); HDL Cholesterol 57 mg/dL (60-100); LDL Cholesterol Calculated 139 mg/dL (50-129); LDL HDL Ratio 2.44 RATIO (0.00-3.22); Osmolality Calculated 279 mOsm/kg (285-295); Potassium 3.5 mmol/L (3.5-5.1); Sodium 135 mmol/L (136-145); Thyroid Stimulating Hormone 0.56 uIU/mL (0.27-4.20); Triglycerides 132 mg/dL (0-150)
== END 2021-12-11 09:31 | disposition home or self-care (01) ==
LOC: LAB 09:33
PROVIDERS: PCP Family Medicine; Visit Provider Family Medicine
DX: F41.1 Generalized anxiety disorder (principal); F43.20 Adjustment disorder, unspecified; E78.5 Hyperlipidemia, unspecified; F17.219 Nicotine dependence, cigarettes, with unspecified nicotine-induced disorders
CPT/HCPCS: 36415; 80048; 80061; 82306; 84443

== ENCOUNTER → 2022-02-14 08:04 | Outpatient (BNVA) | payer MEDICARE, MEDICAID, SELFPAY | PROVIDERS: PCP Family Medicine; Visit Provider Specialist | DX: M12.811 Other specific arthropathies, not elsewhere classified, right shoulder (principal); M25.511 Pain in right shoulder; G89.29 Other chronic pain | CPT/HCPCS: 20610; J1100; J2795; J3301 ==

== ENCOUNTER → 2022-03-20 08:17 | Day surgery (SDC) | payer MEDICARE, MEDICAID, SELFPAY ==
[2022-03-20] MEDS: cosyntropin 0.25 mg SDV IVP (09:01)
[2022-03-20 09:06] VITALS: BP 120/73; PULSE 73; RESP 18; TEMP 36.6; O2SAT 98
[2022-03-20 09:29] LABS: Anion Gap 15.1 (5-19); Blood Urea Nitrogen 17 mg/dL (8-23); Calcium 9.2 mg/dL (8.5-10.5); Carbon Dioxide 22 mmol/L (22-29); Chloride 100 mmol/L (98-107); Glomerular Filtration Rate 62.5 mL/min (90-130); Glucose 89 mg/dL (65-115); Osmolality Calculated 277 mOsm/kg (285-295); Potassium 4.1 mmol/L (3.5-5.1); Sodium 133 mmol/L (136-145)
[2022-03-20 09:40] LABS: Cosyntropin Baseline 5.08 mcg/dL
[2022-03-20 13:38] LABS: Cosyntropin 30 Minute 20.78 mcg/dL
[2022-03-30 00:39] LABS: Plasma Renin Activity LC/MS/MS 1.13 ng/mL/h (0.25-5.82)
== END ==
PROVIDERS: PCP Family Medicine; Visit Provider Family Medicine
DX: E27.8 Other specified disorders of adrenal gland (principal)
CPT/HCPCS: 36415; 80048; 82088; 82533; 84244; 96374; J0834

== ENCOUNTER 2022-04-08 13:01 | Outpatient (CLI) | payer MEDICARE, MEDICAID, SELFPAY ==
--- NOTE | 2022-04-08 13:30 | XR_ITS ---
WS: [id number] DEXA (DUAL ENERGY X-RAY ABSORPTIOMETRY) Bone mineral density was performed using a Sequence Design machine. HISTORY: osteoporosis screening COMPARISON: None available. Lumbar spine BMD (L1-L4): 0.946 g/cm2 T score: -2.0 Z score: -0.1 Total hip BMD: Left: 0.670 g/cm2. T score: -2.7 Z score: -1.2 Right: 0.682 g/cm2. T score: -2.6 Z score: -1.1 10 year probability of a major osteoporotic fracture is 16.4%. RIGHT curvature lumbar spine. XR/XR DEXA axial skeleton* [id number] IMPRESSION: OSTEOPOROSIS based upon the WHO classification for females.
== END 2022-04-08 13:02 | disposition home or self-care (01) ==
PROVIDERS: PCP Family Medicine; Visit Provider Family Medicine
DX: Z78.0 Asymptomatic menopausal state (principal); M81.0 Age-related osteoporosis without current pathological fracture
CPT/HCPCS: 77080

== ENCOUNTER 2022-04-14 12:36 | Emergency (ER) | payer MEDICARE, MEDICAID, SELFPAY ==
--- NOTE | 2022-04-14 12:44 | W.ED.GENADLT ---
HPI - General Adult General: Chief complaint: Anxiety Stated complaint: ANXIETY Time Seen by Provider: 04/14/22 12:44 History of Present Illness: HPI: [66]yo patient w/ hx of depression BIBP for increased anxiety. Patient tells me that his son is trying to evict her from her apartment. Patient tells me that she is feeling stressed and would like to get help. Patient called EMS earlier today. on arrival, the patient is AAOx3 and cooperative with my evaluation. No focal complaints of chest pain, shortness of breath, palpitations, N/V, focal GI/ complaints. Currently denies SI/HI. No complaints of hallucinations. Onset: acute on chronic Duration: ongoing Location: home Severity: severe Associated symptoms: Deny chest pain, dyspnea, nausea, rash, palpitations or vomiting Review of Systems Const: Denies: fever(s) or chills Eyes: Denies: change in vision ENMT: Denies: mouth pain Card: Denies: chest pain or palpitations Resp: Denies: dyspnea or non-productive cough GI: Denies: abdominal pain, nausea, vomiting or diarrhea : Denies: dysuria Musc: Denies: extremity pain Skin/Breast: Denies: rash or new lesions Neuro: Denies: weakness in extremities Psych: Reports: mood swings, panic attacks and other (+anxiety) Simon/Lymph: Denies: easy bruising PFSH ED PFSH: Medical History Acromioclavicular joint arthritis Adrenal nodule Benign essential HTN Bipolar 1 disorder Chronic back pain Chronic neck pain COPD (chronic obstructive pulmonary disease) Dyslipidemia Greater tuberosity of humerus fracture History of bowel disorder History of nausea History of neck swelling Osteoporosis Surgical History History of hysterectomy History of intestinal surgery History of neck surgery Family History Sister Diabetes Cancer lung Hypothyroidism Mother Cancer breast Father CAD (coronary artery disease) Social History Smoking and tobacco status: former smoker Quit status (tobacco): has quit using tobacco Year quit tobacco: 2015 Alcohol intake: current Alcohol intake frequency: few times a week Lives independently: Yes Household members: none Marital status: / Number of children: 2 Number of grandchildren: 1 Physical Exam Const: COMMON NORMALS: alert HENMT: COMMON NORMALS: atraumatic HEAD & SCALP: atraumatic MOUTH: moist mucous membranes not abnormal Eye: COMMON NORMALS: EOMs intact bilaterally and conjunctivae normal CONJUNCTIVA: Yes conjunctivae normal Neck/C-Spine: COMMON NORMALS: full ROM and supple Resp: COMMON NORMALS: normal respiratory effort and clear to auscultation bilaterally AUSCULTATION: clear to auscultation bilaterally Cardio: COMMON NORMALS: regular rate RATE: regular rate GI: COMMON NORMALS: Soft to palpation and non-tender PALPATION: Yes Soft to palpation OTHER: No focal TTP. NO guarding rebound, guarding, rigidity. No CVA tenderness to percussion. Neg Guerrero/Neg McBurney's point tenderness, no suprabupic tenderness to palpation. Extremity: COMMON NORMALS: full ROM Neuro: SENSORIUM/ORIENTATION: Yes alert MOTOR EXAM: No Abnormal motor strength present and Other motor observations present (no focal motor deficits) Psych: COMMON NORMALS: speech normal SPEECH: Yes normal speech MOOD & AFFECT: Yes fearful and Yes Blunted affect present Course Vital Signs: Vital signs: Vital Signs Temperature 99.0 F 04/14/22 12:45 Pulse Rate 108 H 04/14/22 12:45 Respiratory Rate 22 H 04/14/22 12:45 Blood Pressure 170/94 04/14/22 12:45 Pulse Oximetry 97 04/14/22 12:45 Oxygen Delivery Me thod 04/14/22 12:45 MDM - General Adult Medical Decision Making [66]yo patient w/ hx of bipolar disorder presenting for worsening anxiety. HDS, exam within normal limit Thoughts are linear and organized, and the patient has no AH/VH, or HI. Clinically the patient displays no overt toxidrome; they are well appearing, with low suspicion for toxic ingestion given history and exam. Symptoms unlikely 2/2 anemia, hypothyroidism, infection, or ICH. [1:45pm] On reassessment, patient is hemodynamically stable with no acute medical complaints. Case discussed with psychiatric provider Dr. Bucio at [facility] psych inpatient who evaluated patient via telepsych and recommended discharge with close follow-up. Dr. Bucio recommended discharging patient on buspirone for anxiety. Patient denies any suicidal ideation, homicidal ideation or active hallucinations. HR improved without any interventions. Our senior case manager will have you follow-up with [facility] in the next few days for moderate anxiety. You would be expected to have a phone call with our senior case manager who will put you on the schedule. You can expect a call from us in the next 2-3 days. If you don't hear from us, call us back in the emergency room at [phone]. Rx: buspirone for anxiety Disposition: Discharge Discharge Plan Discharge Patient Disposition: Home Clinical Impression: Anxiety Condition: Stable Prescriptions: New buspirone 10 mg tablet 10 mg PO BID PRN (Reason: anxiety) 10 Days Qty: 20 0RF No Action albuterol sulfate 90 mcg/actuation HFA aerosol inhaler 1 puff INHALATION Q6H PRN (Reason: Shortness Of Breath) Qty: 8.5 5RF trazodone 50 mg tablet 50 mg PO .qhs Qty: 30 0RF alendronate [Fosamax] 70 mg tablet 70 mg PO .weekly Qty: 12 4RF venlafaxine 75 mg capsule,extended release 24hr 75 mg PO DAILY Qty: 30 0RF amitriptyline 100 mg tablet 100 mg PO DAILY@2100 90 Days Qty: 90 1RF Discharge Orders: Discharge ED (Routine); Ordered 04/14/22 Ordered By: Libby Fischer Referrals: Emily Franco MD [Primary Care Provider] - Discharge Diet: Advance as tolerated Discharge Activity: Increase activity as tolerated Patient Instructions: Anxiety (ED), Pain Management Activity Restrictions/Additional Instructions: Please come back to the emergency room if you need help, have any hallucinations, or you have any depression or have thoughts about hurting yourself or other people. Our senior case manager will have you follow-up with [facility] in the next few days. You would be expected to have a phone call with our senior case manager who will put you on the schedule. You can expect a call from us in the next 2-3 days. If you don't hear from us, call us back in the emergency room at [phone]. Coding Level of Care Code ED Pecan Mallow Dipper for Amy Gomez Exam Comprehensive
[2022-04-14 12:45] VITALS: BP 170/94; PULSE 108; RESP 22; TEMP 37.2; O2SAT 97
[2022-04-14 14:14] VITALS: PULSE 101; RESP 22; O2SAT 95
--- NOTE | 2022-04-15 11:09 | PC.SOCIAL ---
Addendum entered by Zee Nixon 04/24/22 13:36: Patient had a follow up appointment scheduled with [facility] - patient did attend appointment. Original Note: [facility] F/u Message sent to [facility] for f/u for moderate anxiety. Clinic will contact patient with appointment date and time.
== END 2022-04-14 14:16 | disposition home or self-care (01) ==
PROVIDERS: Emergency Provider Emergency Medicine; PCP Family Medicine
DX: F41.9 Anxiety disorder, unspecified (principal); J44.9 Chronic obstructive pulmonary disease, unspecified; E78.5 Hyperlipidemia, unspecified; Z87.891 Personal history of nicotine dependence
CPT/HCPCS: 99283

== ENCOUNTER → 2022-05-23 08:21 | Outpatient (BNVA) | payer MEDICARE, MEDICAID, SELFPAY | PROVIDERS: PCP Family Medicine; Visit Provider Specialist | DX: M19.011 Primary osteoarthritis, right shoulder (principal); Z23 Encounter for immunization | CPT/HCPCS: 20610; 90471; 90686; J1100; J2795; J3301 ==

== ENCOUNTER → 2022-08-14 12:00 | Outpatient (BNVA) | payer MEDICARE, MEDICAID, SELFPAY | PROVIDERS: PCP Family Medicine; Visit Provider Family Medicine | DX: L98.9 Disorder of the skin and subcutaneous tissue, unspecified (principal); F51.04 Psychophysiologic insomnia | CPT/HCPCS: 88304; 88342 ==

== ENCOUNTER → 2022-08-29 08:16 | Outpatient (BNVA) | payer MEDICARE, MEDICAID, SELFPAY | PROVIDERS: PCP Family Medicine; Visit Provider Specialist | DX: M19.011 Primary osteoarthritis, right shoulder (principal); Z71.89 Other specified counseling | CPT/HCPCS: 20610; J1100; J2795; J3301 ==

== ENCOUNTER → 2022-11-28 08:16 | Outpatient (BNVA) | payer MEDICARE, MEDICAID, SELFPAY | PROVIDERS: PCP Family Medicine; Visit Provider Specialist | DX: M19.011 Primary osteoarthritis, right shoulder (principal); Z71.89 Other specified counseling | CPT/HCPCS: 20610; J1100; J2795; J3301 ==

== ENCOUNTER 2022-11-30 09:46 | Outpatient (CLI) | payer MEDICARE, MEDICAID, SELFPAY ==
--- NOTE | 2022-11-30 10:13 | XRR_ITS ---
PROCEDURE INFORMATION: Exam: XR Right Shoulder Exam date and time: 11/30/2022 10:15 AM Age: 67 years old Clinical indication: Pain; Shoulder; Right; Additional info: Right shoulder trauma TECHNIQUE: Imaging protocol: Radiologic exam of the right shoulder. Views: 2 or more views. COMPARISON: MR shoulder RT wo con* [id number] 04/16/2021 7:21 AM FINDINGS: Bones/joints: Alignment is normal. No acute fracture. Lower cervical fusion is partially imaged. Soft tissues: Visible soft tissues are unremarkable. XR/XR shoulder RT min 2V* [id number] IMPRESSION: No acute findings.
== END 2022-11-30 09:47 | disposition home or self-care (01) ==
PROVIDERS: PCP Family Medicine; Visit Provider Family Medicine
DX: M25.511 Pain in right shoulder (principal)
CPT/HCPCS: 73030

== ENCOUNTER → 2022-12-25 08:39 | Outpatient (BNVA) | payer MEDICARE, MEDICAID, SELFPAY | PROVIDERS: PCP Family Medicine; Visit Provider Family Medicine | DX: Z00.00 Encounter for general adult medical examination without abnormal findings (principal); Z13.1 Encounter for screening for diabetes mellitus; E78.5 Hyperlipidemia, unspecified | CPT/HCPCS: 80053; 80061 ==

== ENCOUNTER → 2023-03-04 11:12 | Outpatient (BNVA) | payer MEDICARE, MEDICAID, SELFPAY | PROVIDERS: PCP Family Medicine; Visit Provider Specialist | DX: M12.811 Other specific arthropathies, not elsewhere classified, right shoulder (principal); M25.511 Pain in right shoulder; G89.29 Other chronic pain | CPT/HCPCS: 20610; J1100; J2795; J3301 ==

== ENCOUNTER → 2023-06-26 12:32 | Outpatient (BNVA) | payer MEDICARE, MEDICAID, SELFPAY | PROVIDERS: PCP Family Medicine; Visit Provider Nurse Practitioner | DX: M12.811 Other specific arthropathies, not elsewhere classified, right shoulder (principal) | CPT/HCPCS: 20610; J1100; J2795; J3301 ==

== ENCOUNTER 2023-08-29 09:05 | Outpatient (CLI) | payer MEDICARE, MEDICAID, SELFPAY ==
[2023-08-29 09:39] LABS: Alanine Aminotransferase 12 U/L (0-33); Albumin Level 4.4 g/dL (3.5-5.2); Alkaline Phosphatase 147 U/L (35-105); Anion Gap 19.3 (5-19); Aspartate Amino Transferase 16 U/L (0-32); Blood Urea Nitrogen 9 mg/dL (8-23); Calcium 9.6 mg/dL (8.5-10.5); Carbon Dioxide 21 mmol/L (22-29); Chloride 100 mmol/L (98-107); Globulin 3.4 g/dL (1.3-4.6); Glucose 116 mg/dL (65-115); Osmolality Calculated 282 mOsm/kg (285-295); Potassium 4.3 mmol/L (3.5-5.1); Sodium 136 mmol/L (136-145); Total Bilirubin 0.2 mg/dL (0.15-1.2); Total Protein 7.8 g/dL (6.6-8.7)
== END 2023-08-29 09:06 | disposition home or self-care (01) ==
LOC: LAB 09:07
PROVIDERS: PCP Family Medicine; Visit Provider Family Medicine
DX: R10.9 Unspecified abdominal pain (principal)
CPT/HCPCS: 36415; 80053

== ENCOUNTER → 2023-10-03 08:20 | Outpatient (BNVA) | payer MEDICARE, MEDICAID, SELFPAY | PROVIDERS: PCP Family Medicine; Visit Provider Nurse Practitioner | DX: M47.22 Other spondylosis with radiculopathy, cervical region (principal); M19.011 Primary osteoarthritis, right shoulder | CPT/HCPCS: 20610; 99213; J1100; J2795; J3301 ==

== ENCOUNTER → 2023-10-16 08:25 | Outpatient (BNVA) | payer MEDICARE, MEDICAID, SELFPAY | PROVIDERS: PCP Family Medicine; Visit Provider Orthopaedic Surgery | DX: M47.22 Other spondylosis with radiculopathy, cervical region (principal) | CPT/HCPCS: 72050; 99204 ==

== ENCOUNTER 2023-11-13 10:38 | Outpatient (CLI) | payer MEDICARE, MEDICAID, SELFPAY ==
--- NOTE | 2023-11-13 11:00 | MR_ITS ---
WS: [id number] MRI CERVICAL SPINE NONCONTRAST TECHNIQUE: Sagittal T1, T2 and STIR imaging. Axial T2, gradient, and fiesta imaging. CLINICAL INFORMATION: neck pain COMPARISON: None. FINDINGS: Straightening of the normal cervical lordosis. Prior postoperative changes ACDF C5-C7. Slight anterol isthesis C7 on T1. C2-C3: Mild facet arthropathy. Spinal canal and foramen are patent. C3-C4: Disc osteophyte complex with slight contact of the cervical cord and mild central canal stenos is. Moderate LEFT and no RIGHT foraminal narrowing. Mild facet arthropathy. C4-C5: Disc osteophyte complex with endplate ridging. Mild central canal stenosis. Moderate to severe RIGHT and moderate LEFT bony foraminal narrowing. Uncovertebral joint hypertrophy. Mild facet arthro ronaldo. C5-C6: Postoperative changes ACDF. Small canal is patent. Moderate LEFT bony foraminal narrowing. C6-C7: Postoperative changes ACDF. Moderate bilateral bony foraminal narrowing. Spinal canal is paten t. C7-T1: Postoperative changes ACDF. Moderate to severe RIGHT and mild LEFT bony foraminal narrowing. S nadeem canal is patent. Visualized brain stem structures: Normal. Prevertebral soft tissues: Normal. Tiny protrusions in the upper thoracic spine at T2-3 and T3-4. Slight contact of the thoracic cord at T3-4. MR/MR cervical spin wo con* [id number] IMPRESSION: 1. Straightening of the normal cervical lordosis with prior ACDF C5-C7. 2. Mild central canal stenosis C3-C4 and C4-C5. 3. Multilevel moderate to severe bony foraminal narrowing worse at LEFT C3-4, RIGHT C4-5, LEFT C5-6, bilateral C6-7, and RIGHT C7-T1.
== END 2023-11-13 10:39 | disposition home or self-care (01) ==
LOC: RAD 10:39
PROVIDERS: PCP Family Medicine; Visit Provider Orthopaedic Surgery
DX: M54.2 Cervicalgia (principal); M48.02 Spinal stenosis, cervical region
CPT/HCPCS: 72141

== ENCOUNTER → 2023-11-18 08:27 | Outpatient (BNVA) | payer MEDICARE, MEDICAID, SELFPAY | PROVIDERS: PCP Family Medicine; Visit Provider Orthopaedic Surgery | DX: Z09 Encounter for follow-up examination after completed treatment for conditions other than malignant neoplasm | CPT/HCPCS: 99214 ==

== ENCOUNTER → 2024-01-13 14:04 | Outpatient (BNVA) | payer MEDICARE, MEDICAID, SELFPAY | PROVIDERS: PCP Family Medicine; Visit Provider Nurse Practitioner | DX: M19.011 Primary osteoarthritis, right shoulder (principal); M47.22 Other spondylosis with radiculopathy, cervical region | CPT/HCPCS: 20610; J1100; J2795; J3301 ==

== ENCOUNTER 2024-02-27 12:40 | Outpatient (CLI) | payer MEDICARE, MEDICAID, SELFPAY ==
--- NOTE | 2024-02-27 12:46 | XR_ITS ---
WS: [id number] Left hip, 2 views, AP pelvis, 02/27/2024 Clinical Data: acute pain after fall Comparison: None. Findings: No fractures or dislocations are seen. The left hip shows no erosion, sclerosis, narrowing, cyst form ation or fragmentation of the left femoral head. There is a small left acetabular lip. The right hip is normal. The soft tissues are not remarkable. The adjacent pelvis is normal. There are small surgical sutures adjacent to the pubic symphysis. XR/XR hip LT 2-3V wo/w pel* [id number] Impression: Negative pelvis and left hip. Tonnis classification: grade 1: sclerosis of femoral head and acetabulum or sli ght joint space narrowing or slight lippig at joint margins
== END 2024-02-27 12:41 | disposition home or self-care (01) ==
LOC: RAD 12:42
PROVIDERS: PCP Family Medicine; Visit Provider Family Medicine
DX: M89.8X5 Other specified disorders of bone, thigh (principal); M25.552 Pain in left hip
CPT/HCPCS: 73502

== ENCOUNTER → 2024-04-16 07:49 | Outpatient (BNVA) | payer MEDICARE, MEDICAID, SELFPAY | PROVIDERS: PCP Family Medicine; Visit Provider Nurse Practitioner | DX: M12.811 Other specific arthropathies, not elsewhere classified, right shoulder (principal); Z71.89 Other specified counseling | CPT/HCPCS: 20610; J1100; J2795; J3301 ==

== ENCOUNTER → 2024-07-14 07:33 | Outpatient (BNVA) | payer MEDICARE, MEDICAID, SELFPAY | PROVIDERS: PCP Family Medicine; Visit Provider Anesthesiology Pain Medicine | DX: M47.22 Other spondylosis with radiculopathy, cervical region (principal); M54.2 Cervicalgia; G89.29 Other chronic pain; M54.42 Lumbago with sciatica, left side; M54.41 Lumbago with sciatica, right side | CPT/HCPCS: 99205 ==

== ENCOUNTER → 2024-07-15 12:45 | Outpatient (BNVA) | payer MEDICARE, MEDICAID, SELFPAY | PROVIDERS: PCP Family Medicine; Visit Provider Nurse Practitioner | DX: M19.011 Primary osteoarthritis, right shoulder (principal); Z71.89 Other specified counseling | CPT/HCPCS: 20610; J1100; J2795; J3301 ==

== ENCOUNTER → 2024-08-17 08:51 | Outpatient (BNVA) | payer MEDICARE, MEDICAID, SELFPAY | PROVIDERS: PCP Family Medicine; Referring Provider Anesthesiology Pain Medicine; Visit Provider Psychiatry & Neurology Neurology | DX: M47.22 Other spondylosis with radiculopathy, cervical region (principal); M25.511 Pain in right shoulder; G89.29 Other chronic pain | CPT/HCPCS: 95885; 95913 ==

== ENCOUNTER → 2024-08-23 13:01 | Outpatient (BNVA) | payer MEDICARE, MEDICAID, SELFPAY | PROVIDERS: PCP Family Medicine; Visit Provider Anesthesiology Pain Medicine | DX: M47.22 Other spondylosis with radiculopathy, cervical region (principal); M54.2 Cervicalgia; G89.29 Other chronic pain; M54.42 Lumbago with sciatica, left side; M54.41 Lumbago with sciatica, right side | CPT/HCPCS: 99214 ==

== ENCOUNTER → 2024-09-06 09:10 | Outpatient (BNVA) | payer MEDICARE, MEDICAID, SELFPAY | PROVIDERS: PCP Family Medicine; Visit Provider Nurse Practitioner | DX: G56.03 Carpal tunnel syndrome, bilateral upper limbs (principal); M47.22 Other spondylosis with radiculopathy, cervical region | CPT/HCPCS: 73110; 99214 ==

== ENCOUNTER 2024-09-15 09:17 | Outpatient (CLI) | payer MEDICARE, MEDICAID, SELFPAY ==
[2024-09-15 09:31] LABS: Basophils # 0.1 10^3/uL (0.0-0.1); Basophils % 0.9 %; Eosinophils # 0.1 10^3/uL (0.0-0.8); Eosinophils % 1.2 %; Lymphocytes # 2.4 10^3/uL (0.8-4.8); Lymphocytes % 25.9 %; Mean Corpuscular HGB Conc 32.6 g/dL (30-55); Mean Corpuscular Hemoglobin 30.7 pg (27-33); Mean Corpuscular Volume 94.2 fl (85-98); Mean Platelet Volume 10.3 fL (7.4-10.4); Monocytes # 0.6 10^3/uL (0.2-0.9); Monocytes % 6.7 %; Neutrophils # 6.11 10^3/uL (1.8-7.7); Neutrophils % 64.9 %; Nucleated Red Blood Cells % 0 %; Platelet Count 263 10^3/cmm (157-399); Red Blood Count 4.46 10^6/uL (3.85-5.65); Red Cell Distribution Width 13.2 % (12.1-15.1)
[2024-09-15 09:48] LABS: Bilirubin Urine Negative (Negative); Blood Urine Negative (Negative); Glucose Urine UA Negative (Normal); Ketones Urine Negative (Negative); Leukocyte Esterase Urine Negative (Negative); Nitrate Urine Negative (Negative); Protein Urine Negative (Negative); Specific Gravity, Urine 1.016 (1.005-1.030); Urine Appearance Clear (CLEAR); Urine Color Yellow (Yellow); Urobilinogen Urine 0.2 mg/dL (Negative); pH Urine 5.5 (5-7)
[2024-09-15 09:54] LABS: Add Urine Microscopic? YES; Bacteria Urine Trace /hpf; Hyaline Casts Urine 0-4 /lpf; RBC Urine 0-2 /hpf (0-2); WBC Urine 0-5 /hpf (0-5)
[2024-09-15 09:56] LABS: Alanine Aminotransferase 13 U/L (0-33); Albumin Level 4.1 g/dL (3.5-5.2); Alkaline Phosphatase 159 U/L (35-105); Anion Gap 16.3 (5-19); Aspartate Amino Transferase 17 U/L (0-32); Blood Urea Nitrogen 12 mg/dL (8-23); Calcium 9.1 mg/dL (8.5-10.5); Carbon Dioxide 20 mmol/L (22-29); Chloride 104 mmol/L (98-107); Globulin 3.1 g/dL (1.3-4.6); Glomerular Filtration Rate 61.9 mL/min (90-130); Glucose 122 mg/dL (65-115); Osmolality Calculated 283 mOsm/kg (285-295); Potassium 4.3 mmol/L (3.5-5.1); Sodium 136 mmol/L (136-145); Total Bilirubin 0.2 mg/dL (0.15-1.2); Total Protein 7.2 g/dL (6.6-8.7)
== END 2024-09-15 09:18 | disposition home or self-care (01) ==
LOC: LAB 09:18
PROVIDERS: PCP Family Medicine; Visit Provider Nurse Practitioner
DX: Z01.818 Encounter for other preprocedural examination (principal)
CPT/HCPCS: 36415; 80053; 81001; 85025

== ENCOUNTER → 2024-09-29 08:40 | Outpatient (BNVA) | payer MEDICARE, MEDICAID, SELFPAY | PROVIDERS: PCP Family Medicine; Visit Provider Family Medicine | DX: Z01.818 Encounter for other preprocedural examination (principal); R94.31 Abnormal electrocardiogram [ECG] [EKG] | CPT/HCPCS: 93005 ==

== ENCOUNTER 2024-09-30 09:20 | Day surgery (SDC) | payer MEDICARE, MEDICAID, SELFPAY ==
[2024-09-30] VITALS (13 sets, daily range): BP systolic 123–153; BP diastolic 70–95; PULSE 73–92; RESP 12–22; TEMP 36.2–36.7; O2SAT 94–100; BMI 21.6
--- NOTE | 2024-09-30 10:06 | P.ANESASSM_ITS ---
Pre-Anesthetic Assessment Height/Weight: Height 5 ft 5 in Weight 130 lb Preop Diagnosis: Carpal tunnel syndrome Operation Date: 09/30/24 11:20 Proposed Procedures p Right Carpal Tunnel Release(Right) - Ina Grewal MD Was Beta Luigi taken within 24 hours: N/A Was Clonidine taken within 24 hours: N/A Social Tobacco and No alcohol Exam alert, oriented x 3 and regular rate & rhythm Decreased breath sounds bilaterally Airway Submandibular: within normal limits Cervical ROM: within normal limits Mallampati: Class II Comments: Comments: Edentulous Anesthetic Plan ASA status: 2 Anesthesia: General Other: No prior issues with anesthesia NPO since yesterday History of GERD on omeprazole COPD, patient has a significant smoking history. States that she stopped smoki ng nicotine 2 weeks ago but she is still smoking marijuana Labs reviewed from 09/15/2024 and acceptable for procedure today Recent EKG showing sinus tachycardia with PVCs Plan for general anesthesia Medications/Allergies Home Medications ?Medication ?Instructions ?Recorded ?Confirmed ?Last Taken ?Type diclofenac sodium 1 % topical gel 4 g topical QID PRN arthritis -- 10/03/23 09/29/24 Unknown Rx inability to take NSAIDS orally #100 grams omeprazole 40 mg capsule,delayed See Rx Instructions . Route 05/05/24 09/29/24 09/29/24 Rx release .COMPLEX #90 caps cyclobenzaprine 10 mg tablet 10 mg PO ONCE PRN muscle spasm #30 08/23/24 09/29/24 09/29/24 Rx tabs gabapentin 300 mg capsule 300 mg PO QDAY #30 caps 08/0709/29/24 09/29/24 Rx amitriptyline 100 mg tablet 100 mg PO DAILY@2100 90 da ys #90 09/28/24 09/29/24 09/29/24 Rx tabs bupropion HCl 150 mg 24 hr tablet, 150 mg PO QAM #30 t abs 09/29/24 09/29/24 09/29/24 Rx extended release (Wellbutrin XL) ondansetron HCl 4 mg tablet See Rx Instructions .Route 09/29/24 09/29/24 Unknown History .COMPLEX PRN Nausea Allergies Allergy/AdvReac Type Severity Reaction Status Date / Time latex Allergy Mild UNKNOWN Verified 09/29/24 08:45 citalopram (From Celexa) AdvReac Mild HIVES Verified 09/29/24 08:45 olanzapine (From Zyprexa) AdvReac Mild UNKNOWN Verified 09/29/24 08:45 [facility] Anesthesia Medical History Bilateral carpal tunnel syndrome Cervical radiculopathy due to degenerative joint disease of spine Primary osteoarthritis, right shoulder Osteoporosis Adrenal nodule Acromioclavicular joint arthritis Greater tuberosity of humerus fracture Benign essential HTN Dyslipidemia COPD (chronic obstructive pulmonary disease) History of neck swelling History of nausea Chronic neck pain Chronic back pain History of bowel disorder Bipolar 1 disorder Surgical History History of hysterectomy History of intestinal surgery History of neck surgery Family History Sister Diabetes Cancer lung Hypothyroidism Mother Cancer breast Father CAD (coronary artery disease) Social History Smoking and tobacco/nicotine status: former use of tobacco/nicotine Quit status (tobacco/nicotine): has quit using Year quit tobacco: 2016 Alcohol intake: current Alcohol intake frequency: few times a week Substance/Drug Use: current Substance/Drug use frequency: daily Lives independently: Yes Household members: none Marital status: Number of children: 2 Number of grandchildren: 1 Data Anesthesia Cardiac Studies: No Data to Display
[2024-09-30] MEDS: acetaminophen 1,000 MG/100 ML PIGGYBACK 400 MG IV (10:09)
[2024-09-30] MEDS: sodium chloride 0.9% 1,000 ML 30 ML IV (10:09)
[2024-09-30] MEDS: CELEcoxib 200 mg Capsule 400 MG PO (10:10)
[2024-09-30] MEDS: gabapentin 300 mg Capsule PO (10:10)
--- NOTE | 2024-09-30 10:43 | P.HPUD_ITS ---
Surgery/Procedure H&P Update DATE OF PROCEDURE: September 30, 2024 DATE H&P PERFORMED: 09/29/24 H&P UPDATE INFORMATION: I have reviewed H&P completed within last 30 days, I have examined patient prior to procedure, No changes to prior documentation and H&P is in [facility] EMR on date indicated PREOP DIAGNOSIS: Carpal tunnel syndrome PLANNED PROCEDURE: Operation Date: 09/30/24 11:20 Proposed Procedures p Right Carpal Tunnel Release(Right) - Ina Grewal MD Related Problem List Diagnoses (1) Carpal tunnel syndrome on right:
[2024-09-30] MEDS: ceFAZolin 2,000 mg SDV 2000 MG IVP (10:44)
[2024-09-30] MEDS: BUPivacaine 0.5% INJ 30 mL XX (11:21)
--- NOTE | 2024-09-30 11:26 | PM.OP ---
Operative Report Date of procedure: September 30, 2024 Pre-op diagnosis: Right carpal tunnel syndrome Post-op diagnosis: Right carpal tunnel syndrome Post-op findings: Significant compression across the carpal canal Procedure done: Right carpal tunnel release Implants: None Specimens removed/disposition: None Pathology: None Surgeon: Ina Grewal MD Office Manager Executive Assistant: None Anesthesia: General (Per LMA, ASA 2) Estimated blood loss (mL): 1 Tourniquet time (min): 20 (At 250 mmHg) IV fluids (mL): 400 Urine output (mL): 0 (No Torres) Complications: None Findings: Significant compression across the carpal canal Condition: stable Disposition: PACU Brief History: This 69-year-old woman presented to the clinic complaining of symptoms consistent with bilateral carpal tunnel syndrome. She rated her pain 8 of 10 and complained of numbness and tingling in her wrist hands and fingers. She had had the symptoms for approximately a year. Her carpal tunnel was confirmed by nerve conduction study. After discussion in the office, the patient wished to proceed with operative intervention in the form of carpal tunnel release. Risks and complications were discussed with her, and consents were signed. The surgical procedure was revisited on the morning of surgery. Procedure: The patient was brought to the operating theater. The patient had a general anesthesia per LMA, ASA 2. The tourniquet was elevated to 250 mmHg for a total tourniquet time of 20 minutes. The patient was also given Ancef 2 g preoperatively. The arm was then prepped and draped with DuraPrep in usual fashion with the arm draped free. A surgical pause was performed. At the time, the surgical pause, we confirmed the site and side of surgery. We also confirmed the patient's identity, appropriate and timely administration of preoperative antibiotics and preoperative surgical markings. An incision was then made along the thenar crease. The incision crossed the wrist joint in a curvilinear fashion. Dissection continued through skin and soft tissues using a scalpel. The palmaris longus was identified along with the transverse carpal ligament. Each of these was released carefully to avoid injury to the median nerve. We were able to dissect gently into the carpal canal which was noted to be quite tight with significant compression across the median nerve. The nerve was visualized and was an hourglass shape. The canal was subsequently palpated to assure there was no bony encroachment upon the canal. The canal was then palpated distally and proximally to assure that my small finger was passed easily without impingement. Finding this to be so, attention was directed to closure. The wound was irrigated with ropivacaine plain. It was then closed with 3-0 nylon in an interrupted mattress fashion. Sterile dressing was then placed consisting of Dermabond, OpSite, fluffed fluffs, sterile soft roll, and an Enoc wrap. The tourniquet was released after 20 minutes. There were no complications. There were no specimens. The procedure was well tolerated. Plan is the patient will be discharged home. Related Problem List Diagnoses (1) Carpal tunnel syndrome on right:
[2024-09-30] MEDS: fentaNYL 50 mcg/mL INJ 2mL IVP ×2 (11:36→11:48)
[2024-09-30] MEDS: HYDROcodone-acetaminophen 5-325 mg Tablet 1 TAB PO (12:20)
--- NOTE | 2024-09-30 13:04 | ANE.PACU2 ---
Inpatient post-anesthesia follow up: Airway intact: Yes Vital signs: Temperature 97.7 F Pulse Rate 78 Respiratory Rate 18 Blood Pressure 153/77 Pulse Oximetry 99 Oxygen Delivery Me thod Room Air Oxygen Flow Rate Fraction of Inspir ed Oxygen Hydration adequate: Yes Nausea and vomiting: No Pain level: 1 Mental status: Baseline
== END 2024-09-30 13:04 | disposition home or self-care (01) ==
PROVIDERS: PCP Family Medicine; Visit Provider Specialist
PROC: (CPT 64721; principal; 2024-09-30 11:10)
DX: G56.03 Carpal tunnel syndrome, bilateral upper limbs (principal); M81.0 Age-related osteoporosis without current pathological fracture; I10 Essential (primary) hypertension; E78.5 Hyperlipidemia, unspecified; M47.22 Other spondylosis with radiculopathy, cervical region; J44.9 Chronic obstructive pulmonary disease, unspecified; K21.9 Gastro-esophageal reflux disease without esophagitis; Z87.891 Personal history of nicotine dependence; Z79.899 Other long term (current) drug therapy; Z88.8 Allergy status to other drugs, medicaments and biological substances; Z91.040 Latex allergy status
CPT/HCPCS: 64721; J0131; J0690; J3010; J3490; J7030; J9999

== ENCOUNTER → 2024-10-15 08:56 | Outpatient (BNVA) | payer MEDICARE, MEDICAID, SELFPAY | PROVIDERS: PCP Family Medicine; Visit Provider Nurse Practitioner | DX: Z98.890 Other specified postprocedural states (principal) | CPT/HCPCS: 99024 ==

== ENCOUNTER → 2024-10-22 08:21 | Outpatient (BNVA) | payer MEDICARE, MEDICAID, SELFPAY | PROVIDERS: PCP Family Medicine; Visit Provider Nurse Practitioner | DX: M19.011 Primary osteoarthritis, right shoulder (principal); Z71.89 Other specified counseling | CPT/HCPCS: 20610; J1100; J2795; J3301; J9999 ==

== ENCOUNTER → 2024-11-23 08:37 | Outpatient (BNVA) | payer MEDICARE, MEDICAID, SELFPAY | PROVIDERS: PCP Family Medicine; Visit Provider Anesthesiology Pain Medicine | DX: M54.2 Cervicalgia (principal); G89.29 Other chronic pain; M54.42 Lumbago with sciatica, left side; M54.41 Lumbago with sciatica, right side; M47.22 Other spondylosis with radiculopathy, cervical region | CPT/HCPCS: 99214 ==

== ENCOUNTER 2025-01-03 14:47 | Outpatient (CLI) | payer MEDICARE, MEDICAID, SELFPAY ==
--- NOTE | 2025-01-03 15:00 | XR_ITS ---
WS: [id number] SCREENING DEXA SCAN [employer] CLINICAL INFORMATION: routine screening for osteoporosis COMPARISON: 2021 FINDINGS: The L1-L4 bone mineral density measures 0.879. This corresponds to a T score score of -2.7 and Z score of -0.8. Left femoral neck bone mineral density measures 0.732 g/cm2. This corresponds to a T score of -2.2 and Z score of -0.6. Right femoral neck bone mineral density measures 0.692 g/cm2. This corresponds to a T score -2.5of and Z score of -0.9. Mean femoral neck bone mineral density measures 0.712 g/cm2. This corresponds to a T score of -2.3 and Z score of -0.7. XR/XR DEXA axial skeleton* 65257 IMPRESSION: Osteoporosis lumbar spine. Osteopenia femoral necks. Patient's FRAX calculated 10 year probability for major osteoporotic fracture i s 20.8% and osteoporotic hip fracture is 6.9%. Lumbar spine bone mineral density decreased -8.0% Femoral neck bone mineral density increased 5.3%
== END 2025-01-03 14:48 | disposition home or self-care (01) ==
LOC: RAD 14:49
PROVIDERS: PCP Family Medicine; Visit Provider Family Medicine
DX: M81.0 Age-related osteoporosis without current pathological fracture (principal); M85.88 Other specified disorders of bone density and structure, other site
CPT/HCPCS: 77080

== ENCOUNTER → 2025-02-04 07:33 | Outpatient (BNVA) | payer MEDICARE, MEDICAID, SELFPAY | PROVIDERS: PCP Family Medicine; Visit Provider Nurse Practitioner | DX: M19.011 Primary osteoarthritis, right shoulder (principal); Z71.89 Other specified counseling | CPT/HCPCS: 20610; J1100; J2795; J3301; J9999 ==

== ENCOUNTER 2025-03-15 17:01 | Emergency (ER) | payer MEDICARE, MEDICAID, SELFPAY ==
--- OUTSIDE RECORDS SUMMARY | 2016-11-26 06:15 | XMS_ITS | Continuity of Care Document ---
Author Organization [facility] Address [id number] [address] Phone Care Team Providers Care Machine Shop Specialist Name Role Phone Unavailable Unavailable Unavailable Allergies, Adverse Reactions, Alerts Substance Reaction Status Criticality No Known Allergies Active No Inform ation Medications Medication Instructions Dosage Effective Dates (start - stop) Status Comments diazepam 10 mg tablet take 1 tablet by oral route 3 times every day 10 MG - Active Percocet 10 mg-325 mg tablet take 1 tablet by oral route every 6 hours as needed 1.00 tablet - Active amitriptyline 100 mg tablet take 1 tablet by oral route every day at bedtime 100 MG - Active Procedures Procedure Date No Work Today/No Charge EDR Approval Note EDR Approval Note Panoramic Film Intraoral Periapical First Film Intraoral Periapical Each Additional Film Comprehensive Oral Evaluatio n New Or Established EDR Approval Note EDR Approval Note Advance Directives Directive Yes / No Effective Date File Name No Information Encounters Encounter Description Practice Location Reason(s) For Visit Diagnoses Date Provider Providers Copied on Encounter [facility], [id number] [place], [place], [id number], [place] tel:[phone] [facility] Encounter for dental exam and cleaning w/o abnormal findings No Information [facility], [id number] [place], [place], [id number], [place] tel:[phone] [facility] Encounter for dental exam and cleaning w/o abnormal findings No Information Family History Family Member Type Diagnosis Age At Onset No Information Payers Payer name Insurance type Covered libertarian ID Saritha pitts(s) D Medicaid [id number] Social History Type Description Quantity Date Captured Comments Alcohol Use Details Unknown Caffeine Use Details Unknown Tobacco Use Status Smoking Status No Information Sex Female Vital Signs Date / Time: Height Weight BMI Pulse Rate Blood Pressure Temperature Respiratory Rate Body Surface Area Head Circumference Head Circ. Percentile Wt./Sami. Percentile BMI percentile Pulse Ox Inhaled Ox 10:46 AM 91 /min 169/91 mm[Hg] Chief Complaint And Reason For Visit No Information Reason For Referral Reason For Referral No Information Plan Of Treatment Date Type Action Status Goal Tobacco cessation counseling completed History Of Present Illness Encounter Date Complaint History Of Prese nt Illness No Information Functional Status Date Functional Assessmen t No Information Instructions Date Instruction Additional Infor yaneth Lifestyle education Related to D ental Examination Assessments Type Assessment Date No Information Patient Care Teams Name Effective Dates (start - stop) Status Members No Information
--- OUTSIDE RECORDS SUMMARY | 2025-03-15 17:05 | XMS_ITS | Encounter Summary ---
Author Organization [facility] Address [address] [place] [address] Care Team Providers Care Finish Photographer Name Role Phone Jean Pierre Bolivar MD Primary Care Provider Nadiya dan Encounter Details Date Type Department Care Team (Latest Contact Info) Description 09/24/2004 Outpatient Historical [facility] Neurology [address], [address] [place] [address] Des Hickey MD NO ADDRESS ON FILE CONVULSIONS, OTHER (CMS/HCC) (Primary Dx); COMMON MIGRAINE W/O MENTN INTRACT Social History Tobacco Use Types Packs/Day Years Used Date Smoking Tobacco: Never Assessed Comments Unknown Sex and Gender Information Value Date Recorded Sex Assigned at Not on file Legal Sex 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
--- OUTSIDE RECORDS SUMMARY | 2025-03-15 17:05 | XMS_ITS | Encounter Summary ---
Author Organization [facility] Address [address] [place] [address] Care Team Providers Care Equipment Maintenance Supervisor Name Role Phone Jean Pierre Bolivar MD Primary Care Provider Nadiya dan Encounter Details Date Type Department Care Team (Late st Contact Info) Description 06/04/2004 Inpatient Historical [facility] Des Hickey MD NO ADDRESS ON FILE EPILEPSY NOS W/O MENTN INTRACTABLE (CMS/HCC) (Primary Dx) Social History Tobacco Use Types Packs/Day Years Used Date Smoking Tobacco: Never Assessed Comments Unknown Sex and Gender Information Value Date Recorded Sex Assigned at Not on file Legal Sex Female 3:35 AM INSTRUCTOR OF SOCIOLOGY Gender Identity Not on file Sexual Orientation Not on file documented as of this encounter Plan of Treatment Not on file documented as of this encounter Visit Diagnoses Diagnosis Unspecified epilepsy without mention of intractable epilepsy (CMS/HCC)- Primary Unspecified epilepsy without mention of intractable epilepsy documented in this encounter Care Teams Equipment Maintenance Supervisor Relationship Specialty Start Date End Date Jean Pierre Bolivar MD PCP - General Internal Medicine 09/16/17 10/29/20 documented as of this encounter
--- OUTSIDE RECORDS SUMMARY | 2025-03-15 17:05 | XMS_ITS | Encounter Summary ---
Author Organization [facility] Address [address] [place] [address] Care Team Providers Care Russian History Professor Name Role Phone Jean Pierre Bolivar MD Primary Care Provider Nadiya dan Encounter Details Date Type Department Care Team (Latest Contact Info) Description 07/25/2004 Outpatient Historical [facility] Neurology [address], [address] [place] [address] Des Hickey MD NO ADDRESS ON FILE CONVULSIONS, OTHER (CMS/HCC) (Primary Dx); COMMON MIGRAINE W/O MENTN INTRACT; DEPRESSIVE DISORDER NEC Social History Tobacco Use Types Packs/Day Years Used Date Smoking Tobacco: Never Assessed Comments Unknown Sex and Gender Information Value Date Recorded Sex Assigned at Not on file Legal Sex Female 3:35 AM INSECTICIDE EXPERT Gender Identity Not on file Sexual Orientation Not on file documented as of this encounter Plan of Treatment Not on file documented as of this encounter Visit Diagnoses Diagnosis Other convulsions- Primary Migraine without aura, without mention of intractable migraine without mention of status migrainosus Depressive disorder, not elsewhere classified documented in this encounter Care Teams Russian History Professor Relationship Specialty Start Date End Date Jean Pierre Bolivar MD PCP - General Internal Medicine 09/16/17 10/29/20 documented as of this encounter
--- OUTSIDE RECORDS SUMMARY | 2025-03-15 17:05 | XMS_ITS | Encounter Summary ---
Author Organization [facility] Address [address] [place] [address] Care Team Providers Care Broadcast Systems Engineer Name Role Phone Jean Pierre Bolivar MD Primary Care Provider Nadiya dan Encounter Details Date Type Department Care Team (Late st Contact Info) Description 01/14/2008 Emergency [facility] Emergency Department [address] [place] [phone] Ed, Physician NO ADDRESS ON FILE Tomas He III, DO NO ADDRESS ON FILE Social History Tobacco Use Types Packs/Day Years Used Date Smoking Tobacco: Never Assessed Comments Unknown Sex and Gender Information Value Date Recorded Sex Assigned at Not on file Legal Sex Female 3:35 AM HUMAN RELATIONS MANAGER Gender Identity Not on file Sexual Orientation Not on file documented as of this encounter Plan of Treatment Not on file documented as of this encounter Visit Diagnoses Not on filedocumented in this encounter Care Teams Broadcast Systems Engineer Relationship Specialty Start Date End Date Jean Pierre Bolivar MD PCP - General Internal Medicine 09/16/17 10/29/20 documented as of this encounter
--- OUTSIDE RECORDS SUMMARY | 2025-03-15 17:05 | XMS_ITS | Encounter Summary ---
Author Organization [facility] Address [address] [place] [address] Care Team Providers Care Handy Man Name Role Phone Jean Pierre Bolivar MD Primary Care Provider Nadiya dan Encounter Details Date Type Department Care Team (Latest Contact Info) Description 09/26/2005 Outpatient Historical [facility] Neurology [address], [address] [place] [address] Des Hickey MD NO ADDRESS ON FILE Other Convulsions (CMS/HCC) (Primary Dx) Social History Tobacco Use Types Packs/Day Years Used Date Smoking Tobacco: Never Assessed Comments Unknown Sex and Gender Information Value Date Recorded Sex Assigned at Not on file Legal Sex Female 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
--- OUTSIDE RECORDS SUMMARY | 2025-03-15 17:05 | XMS_ITS | Encounter Summary ---
Author Organization [facility] Address [address] [place] [address] Care Team Providers Care Citrus Picker Name Role Phone Jean Pierre Bolivar MD Primary Care Provider Nadiya dan Encounter Details Date Type Department Care Team (Latest Contact Info) Description 09/24/2004 Outpatient Historical [facility] [address] [place] [phone] Eladio Livingston MD NO ADDRESS ON FILE ADMINISTRTVE ENCOUNT NOS (Primary Dx) Social History Tobacco Use Types Packs/Day Years Used Date Smoking Tobacco: Never Assessed Comments Unknown Sex and Gender Information Value Date Recorded Sex Assigned at Not on file Legal Sex Female 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
--- OUTSIDE RECORDS SUMMARY | 2025-03-15 17:05 | XMS_ITS | Encounter Summary ---
Author Organization [facility] Address [address] [place] [address] Care Team Providers Care Comb Tender Name Role Phone Jean Pierre Bolivar MD Primary Care Provider Nadiya dan Encounter Details Date Type Department Care Team (Late st Contact Info) Description 07/04/2008 Emergency [facility] Emergency Department [address] 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 Gender Identity Not on file Sexual Orientation Not on file documented as of this encounter Plan of Treatment Not on file documented as of this encounter Procedures Procedure Name Priority Date/Time Associated Diagnosis Comments CT ABDOMEN PELVIS W CONTRAST Routine 07/04/2008 1:36 PM FIRE HYDRANT MECHANIC CBC WITH DIFFERENTIAL Stat 07/04/2008 12:31 PM FIRE HYDRANT MECHANIC COMPREHENSIVE METABOLIC PANEL Stat 07/04/2008 12:31 PM FIRE HYDRANT MECHANIC documented in this encounter Results * CT ABDOMEN PELVIS W CONTRAST (07/04/2008 1:36 PM FIRE HYDRANT MECHANIC) Anatomical Region Laterality Modality Abdomen Other 07/04/2008 1:36 PM FIRE HYDRANT MECHANIC Narrative 07/05/2008 1:28 PM FIRE HYDRANT MECHANIC Exam: CT Abdomen, Pelvis, w/contrast Date/Time of Exam: Jul 04, 2008 1:36:23 PM History: Please see order comments. Contrast: 10 mL Optiray-240 which extravasated within the dorsum of the patient's foot. Comparison: CT abdomen and pelvis with contrast 07/01/2008. Findings: Bibasilar dependent atelectatic change is present. Calcified granuloma of the posterobasal segment of the right lower lobe is seen. Geographic low attenuation of the unenhanced liver relative to the spleen is identified. This CT finding is nondiagnostic of however most consistent with geographic fatty infiltration of the liver. A small amount of intravenous contrast within the iliac vessels is noted. The relatively unenhanced liver, spleen, gallbladder, adrenal glands, pancreas, and right kidney are unremarkable. A 1.0 cm cortical hypodensity of the anterior aspect of the lower pole of the left kidney is identified. Mild distention of the bladder is present. The uterus is surgically absent. No free air, free fluid, or pathologic lymphadenopathy by CT size criteria is identified. An approximately 1.2 cm in size defect of the right aspect of the linea alba on image 34 of series 2 is identified not significantly changed. Stable appearance of spiculated soft tissue density along the deep aspect of the subcutaneous fat of the anterior abdominal wall just superior to the level of the umbilicus is noted. Opacified and unopacified bowel is unremarkable. No free air, free fluid, or pathologic lymphadenopathy by CT size criteria is identified. Tiny bilateral fat containing inguinal hernias are present. Impression: 1. Small fascial defect involving the linea alba on the right of the anterior abdominal wall without renate herniation of bowel or omental fat identified. 2. CT findings nondiagnostic of however most consistent with geographic fatty infiltration of the liver. 3. Cortical hypodensity of the lower pole of the left kidney. 4. Mild distention of the bladder without acute intra-abdominal process identified. 5. Tiny bilateral fat containing inguinal hernias, right greater than left. - Dictated By: Edwardo Le M.D. Electronically Signed By: Edwardo Le M.D. Date Signed: 07/05/08 LJW Procedure Note Kelsie Le MD - 07/05/2008 Exam: CT Abdomen, Pelvis, w/contrast Date/Time of Exam: Jul 04, 2008 1:36:23 PM History: Please see order comments. Contrast: 10 mL Optiray-240 which extravasated within the dorsum of thepatient's foot. Comparison: CT abdomen and pelvis with contrast 07/01/2008. Findings: Bibasilar dependent atelectatic change is present. Calcifiedgranuloma of the posterobasal segment of the right lower lobe is seen. Geographic low attenuation of theunenhanced liver relative to the spleen is identified. This CT finding is nondiagnostic of however mostconsistent with geographic fatty infiltration of the liver. A small amount of intravenous contrastwithin the iliac vessels is noted. The relatively unenhanced liver, spleen, gallbladder, adrenalglands, pancreas, and right kidney are unremarkable. A 1.0 cm cortical hypodensity of the anterior aspect ofthe lower pole of the left kidney is identified. Mild distention of the bladder is present. Theuterus is surgically absent. No free air, free fluid, or pathologic lymphadenopathy by CT size criteria isidentified. An approximately 1.2 cm in size defect of the right aspect of the linea alba on image 34 ofseries 2 is identified not significantly changed. Stable appearance of spiculated soft tissue densityalong the deep aspect of the subcutaneous fat of the anterior abdominal wall just superior to the levelof the umbilicus is noted. Opacified and unopacified bowel is unremarkable. No free air, free fluid,or pathologic lymphadenopathy by CT size criteria is identified. Tiny bilateral fat containing inguinalhernias are present. Impression: 1. Small fascial defect involving the linea alba on the right of theanterior abdominal wall without renate herniation of bowel or omental fat identified. 2. CT findings nondiagnostic of however most consistent with geographicfatty infiltration of the liver. 3. Cortical hypodensity of the lower pole of the left kidney. 4. Mild distention of the bladder without acute intra-abdominal processidentified. 5. Tiny bilateral fat containing inguinal hernias, right greater thanleft. - Dictated By: Edwardo Le M.D. Electronically Signed By: Edwardo Le M.D. Date Signed: 07/05/08 MATT [address] DO [address] ORDERABLES Final Result * (ABNORMAL) COMPREHENSIVE METABOLIC PANEL (07/04/2008 12:31 PM FIRE HYDRANT MECHANIC) TOTAL PROTEIN 6.8 6.3 - 8.2 g/dL [facility] SODIUM 142 136 - 145 mEq/L [facility] BILIRUBIN TOTAL 0.2(L) 0.3 - 1.2 mg/dL [facility] BUN 6(L) 7 - 17 mg/dL [facility] CO2 26 22 - 32 mmol/l [facility] ANION GAP 8(L) 9 - 20 mEq/L [facility] AST 23 8 - 33 U/L [facility] POTASSIUM 4.1 3.5 - 5.0 mEq/L [facility] GLOBULIN (CALC) 2.5 2.4 - 3.9 g/dL [facility] ALBUMIN 4.3 3.5 - 5.0 g/dL [facility] CREATININE 0.9 0.7 - 1.2 mg/dL [facility] ALT 25 4 - 36 IU/L [facility] CALCIUM 9.6 8.4 - 10.5 mg/dL [facility] OSMOLALITY, CALCULATED 290 275 - 295 mOsm/Kg [facility] GLUCOSE 116(H) 70 - 110 mg/dL [facility] ALKALINE PHOSPHATASE 144(H) 25 - 100 U/L [facility] CHLORIDE 112(H) 95 - 110 mEq/L [facility] ALBUMIN/GLOBULIN RATIO 1.7 1.0 - 2.3 [facility] Blood specimen (specimen) 07/04/2008 12:31 PM FIRE HYDRANT MECHANIC 07/04/2008 12:33 PM FIRE HYDRANT MECHANIC us Dayo Pabon DO CHEMISTRY ORDERABLES Final R esult INTERFACE SYSTEM Refer to clinic/hospital department [facility] CLIA# [id number] [address] [place] [address] * (ABNORMAL) CBC WITH DIFFERENTIAL (07/04/2008 12:31 PM FIRE HYDRANT MECHANIC) WBC 7.5 4.8 - 10.8 K/ul [facility] MCH 32.0 27.0 - 34.0 pg [facility] NEUTROPHIL ABSOLUTE 5.4 2.0 - 8.0 K/ul [facility] NEUTROPHILS 71.9 42.2 - 75.2 % [facility] HEMATOCRIT 38.3 36.0 - 46.0 % [facility] EOSINOPHILS 0.7 0.0 - 7.0 % [facility] PLATELETS 259 140 - 440 K/ul [facility] EOSINOPHIL ABSOLUTE 0.1 0.0 - 0.7 K/ul [facility] RBC 4.22 4.20 - 5.40 Mil/ul [facility] LYMPHOCYTES 21.0(L) 24.0 - 44.0 % [facility] MCHC 35.2(H) 30.0 - 35.0 g/dL [facility] LYMPHOCYTE ABSOLUTE 1.6 1.2 - 4.0 K/ul [facility] MCV 90.8 84.0 - 103.0 Fl [facility] MPV 9.8 8.9 - 12.8 Fl [facility] BASOPHILS ABSOLUTE 0.0 0.0 - 0.2 K/ul [facility] BASOPHILS 0.4 0.0 - 1.0 % [facility] HEMOGLOBIN 13.5 12.0 - 16.0 g/dL [facility] RDW 13.4 11.0 - 14.5 % [facility] MONOCYTE ABSOLUTE 0.5 0.1 - 0.6 K/ul [facility] MONOCYTES 6.0 2.0 - 10.0 % [facility] Blood specimen (specimen) 07/04/2008 12:31 PM FIRE HYDRANT MECHANIC 07/04/2008 12:33 PM FIRE HYDRANT MECHANIC Dayo Pabon DO HEMATOLOGY ORDERABLES Final Result INTERFACE SYSTEM Refer to clinic/hospital department [facility] CLIA# [id number] [address] [place] [address] documented in this encounter Visit Diagnoses Not on filedocumented in this encounter Care Teams Comb Tender Relationship Specialty Start Date End Date Jean Pierre Bolivar MD PCP - General Internal Medicine 09/16/17 10/29/20 documented as of this encounter
--- OUTSIDE RECORDS SUMMARY | 2025-03-15 17:05 | XMS_ITS | Encounter Summary ---
Author Organization [facility] Address [address] [place] [address] Care Team Providers Care Drying Oven Tender Name Role Phone Jean Pierre Bolivar MD Primary Care Provider Nadiya dan Encounter Details Date Type Department Care Team (Latest Contact Info) Description 06/19/2004 Outpatient Historical [facility] [address] [place] [phone] Trey Jaime Jr., PsyD NO ADDRESS ON FILE DYSTHYMIC DISORDER (Primary Dx) Social History Tobacco Use Types Packs/Day Years Used Date Smoking Tobacco: Never Assessed Comments Unknown Sex and Gender Information Value Date Recorded Sex Assigned at Not on file 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
--- OUTSIDE RECORDS SUMMARY | 2025-03-15 17:05 | XMS_ITS | Encounter Summary ---
Author Organization [facility] Address [address] [place] [address] Care Team Providers Care On Air Announcer Name Role Phone Jean Pierre Bolivar MD Primary Care Provider Nadiya dan Encounter Details Date Type Department Care Team (Late st Contact Info) Description 07/01/2008 Emergency [facility] Emergency Department [address] 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 FIRE DIRECTION SPECIALIST Gender Identity Not on file Sexual Orientation Not on file documented as of this encounter Plan of Treatment Not on file documented as of this encounter Procedures Procedure Name Priority Date/Time Associated Diagnosis Comments CT ABDOMEN PELVIS W CONTRAST Routine 07/01/2008 7:16 PM CANNON FIRE DIRECTION SPECIALIST CBC WITH DIFFERENTIAL Stat 07/01/2008 5:55 PM CANNON FIRE DIRECTION SPECIALIST COMPREHENSIVE METABOLIC PANEL Stat 07/01/2008 5:55 PM CANNON FIRE DIRECTION SPECIALIST documented in this encounter Results * CT ABDOMEN PELVIS W CONTRAST (07/01/2008 7:16 PM CANNON FIRE DIRECTION SPECIALIST) Anatomical Region Laterality Modality Abdomen Other 07/01/2008 7:16 PM CANNON FIRE DIRECTION SPECIALIST Narrative 07/01/2008 10:03 PM CANNON FIRE DIRECTION SPECIALIST CT of the abdomen and pelvis with contrast 07/01/2008. History: Abdominal pain, predominately right lower quadrant. Abdominal distention. There are no comparisons. Helical imaging of the abdomen and pelvis was performed following administration of 100 mL of 240 mg iodinated IV contrast. Oral contrast was also given. No rectal contrast was administered. Sagittal and coronal reformations were reviewed. The visualized lung bases are clear. The liver, gallbladder, spleen, pancreas, bile ducts and adrenal glands are unremarkable. There is a small cyst in the lower pole of the left kidney. The kidneys are otherwise unremarkable. No abnormally dilated loops of bowel are appreciated. There is a moderate amount of stool in the right colon. Neither a normal nor abnormal appendix can be identified. No inflammatory changes are noted in the right lower quadrant. The gynecologic organs are surgically absent. Impression: 1. There is a moderate amount of stool in the right colon. 2. There is a small cyst in the lower pole of the left kidney. - Dictated By: Jie Tracy M.D. Electronically Signed By: Jie Tracy M.D. Date Signed: 07/01/08 JAW Procedure Note Jie Tracy MD - 07/01/2008 CT of the abdomen and pelvis with contrast 07/01/2008. History: Abdominal pain, predominately right lower quadrant. Abdominaldistention. There are no comparisons. Helical imaging of the abdomen and pelvis was performed followingadministration of 100 mL of 240 mg iodinated IV contrast. Oral contrast was also given. No rectal contrastwas administered. Sagittal and coronal reformations were reviewed. The visualized lung bases are clear. The liver, gallbladder, spleen, pancreas, bile ducts and adrenal glandsare unremarkable. There is a small cyst in the lower pole of the left kidney. The kidneys are otherwiseunremarkable. No abnormally dilated loops of bowel are appreciated. There is a moderate amount ofstool in the right colon. Neither a normal nor abnormal appendix can be identified. No inflammatory changesare noted in the right lower quadrant. The gynecologic organs are surgically absent. Impression: 1. There is a moderate amount of stool in the right colon. 2. There is a small cyst in the lower pole of the left kidney. - Dictated By: Jie Tracy M.D. Electronically Signed By: Jie Tracy M.D. Date Signed: 07/01/08 JAW us Itzel Hilliard MD CT ORDERABLES Final Result * (ABNORMAL) CBC WITH DIFFERENTIAL (07/01/2008 5:55 PM CANNON FIRE DIRECTION SPECIALIST) RBC 4.27 4.20 - 5.40 Mil/ul [facility] MCHC 35.3(H) 30.0 - 35.0 g/dL [facility] LYMPHOCYTE ABSOLUTE 2.4 1.2 - 4.0 K/ul [facility] LYMPHOCYTES 30.2 24.0 - 44.0 % [facility] MCV 90.9 84.0 - 103.0 Fl [facility] BASOPHILS 0.4 0.0 - 1.0 % [facility] MPV 10.0 8.9 - 12.8 Fl [facility] BASOPHILS ABSOLUTE 0.0 0.0 - 0.2 K/ul [facility] HEMOGLOBIN 13.7 12.0 - 16.0 g/dL [facility] MONOCYTES 8.0 2.0 - 10.0 % [facility] RDW 13.6 11.0 - 14.5 % [facility] MONOCYTE ABSOLUTE 0.6 0.1 - 0.6 K/ul [facility] WBC 8.0 4.8 - 10.8 K/ul [facility] NEUTROPHILS 60.5 42.2 - 75.2 % [facility] MCH 32.1 27.0 - 34.0 pg [facility] NEUTROPHIL ABSOLUTE 4.9 2.0 - 8.0 K/ul [facility] HEMATOCRIT 38.8 36.0 - 46.0 % [facility] PLATELETS 291 140 - 440 K/ul [facility] EOSINOPHIL ABSOLUTE 0.1 0.0 - 0.7 K/ul [facility] EOSINOPHILS 0.9 0.0 - 7.0 % [facility] Blood specimen (specimen) 07/01/2008 5:55 PM CANNON FIRE DIRECTION SPECIALIST 07/01/2008 5:55 PM CANNON FIRE DIRECTION SPECIALIST us Itzel Hilliard MD HEMATOLOGY ORDERABLES Final Re sult INTERFACE SYSTEM Refer to clinic/hospital department [facility] CLIA# [id number] [address] [place] [address] * (ABNORMAL) COMPREHENSIVE METABOLIC PANEL (07/01/2008 5:55 PM CANNON FIRE DIRECTION SPECIALIST) ALBUMIN/GLOBULIN RATIO 1.6 1.0 - 2.3 [facility] TOTAL PROTEIN 7.1 6.3 - 8.2 g/dL [facility] SODIUM 145 136 - 145 mEq/L [facility] BILIRUBIN TOTAL 0.3 0.3 - 1.2 mg/dL [facility] BUN 11 7 - 17 mg/dL [facility] CO2 25 22 - 32 mmol/l [facility] ANION GAP 15 9 - 20 mEq/L [facility] AST 22 8 - 33 U/L [facility] POTASSIUM 4.0 3.5 - 5.0 mEq/L [facility] GLOBULIN (CALC) 2.7 2.4 - 3.9 g/dL [facility] ALBUMIN 4.4 3.5 - 5.0 g/dL [facility] CREATININE 1.0 0.7 - 1.2 mg/dL [facility] ALT 27 4 - 36 IU/L [facility] CALCIUM 9.4 8.4 - 10.5 mg/dL [facility] OSMOLALITY, CALCULATED 297(H) 275 - 295 mOsm/Kg [facility] GLUCOSE 114(H) 70 - 110 mg/dL [facility] ALKALINE PHOSPHATASE 137(H) 25 - 100 U/L [facility] CHLORIDE 109 95 - 110 mEq/L [facility] Blood specimen (specimen) 07/01/2008 5:55 PM CANNON FIRE DIRECTION SPECIALIST 07/01/2008 5:55 PM CANNON FIRE DIRECTION SPECIALIST us Itzel Hilliard MD CHEMISTRY ORDERABLES Final Res ult INTERFACE SYSTEM Refer to clinic/hospital department [facility] CLIA# [id number] [address] [place] [address] documented in this encounter Visit Diagnoses Not on filedocumented in this encounter Care Teams On Air Announcer Relationship Specialty Start Date End Date Jean Pierre Bolivar MD PCP - General Internal Medicine 09/16/17 10/29/20 documented as of this encounter
--- OUTSIDE RECORDS SUMMARY | 2025-03-15 17:05 | XMS_ITS | Encounter Summary ---
Author Organization [facility] Address [address] [place] [address] Care Team Providers Care Upper Shaper Name Role Phone Jean Pierre Bolivar MD Primary Care Provider Nadiya dan Encounter Details Date Type Department Care Team (Latest Contact Info) Description 03/16/2004 Outpatient Historical [facility] [address] [place] [phone] MD [address] [place] [phone] BACKACHE NOS (Primary Dx); DYSTHYMIC DISORDER; CONVULSIONS, OTHER (CMS/HCC) Social History Tobacco Use Types Packs/Day Years Used Date Smoking Tobacco: Never Assessed Comments Unknown Sex and Gender Information Value Date Recorded Sex Assigned at Not on file 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
--- OUTSIDE RECORDS SUMMARY | 2025-03-15 17:05 | XMS_ITS | Encounter Summary ---
Author Organization [facility] Address [address] [place] [address] Care Team Providers Care Paper Core Machine Operator Name Role Phone Jean Pierre Bolivar MD Primary Care Provider Unavaila ble Reason for Referral * Outpatient Services (Routine) - Closed Specialty Diagnoses / Procedures Referred By Contnghia florez Referred To Contact Diagnoses Other screening mammogram Procedures MAMMO DIGITAL SCREEN BILAT Vannessa Bell MD [address] [place] [address] Phone: tel: fax: Referral ID Status Reason Start Date Expiration Date Visits Re quested Visits Authorized [id number] Closed 03/05/2010 09/01/2010 1 1 Encounter Details Date Type Department Care Team (Late st Contact Info) Description 03/05/2010 Ancillary Orders [facility] [place] [facility] [address] [address] Vannessa Bell MD [address] [place] [address] Other Screening Mammogram Social History Tobacco Use Types Packs/Day Years Used Date Smoking Tobacco: Every Day Cigarettes 0.5 10 Started: 08/07/1998; Last attempted to quit: 08/07/2008 Alcohol Use Standard Drinks/Week Comments No 0 (1 standard drink = 0.6 oz pur e alcohol) Comments No Sex and Gender Information Value Date Recorded Sex Assigned at Not on file 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 No suspicious findings in either breast and she can undergo bilateral screening in one year's time. *Addendum dictated on 04/30/10 KARELY/perfecto Narrative 03/26/2010 9:12 AM CDT Bilateral Mammogram Reason for Exam: Screening Comparison: No prior exam(s) for comparison. Findings: Bilateral CC and MLO views were obtained. This examination was reviewed with the aid of a computer-aided detection system(CAD). The breast tissue density is average. A few scattered benign type calcifications bilaterally. Scattered benign type nodularity. No suspicious findings. Prior exam was performed over 12 years ago. Procedure Note Sarath Manuel MD - 05/04/2010 Bilateral Mammogram Reason for Exam: Screening Comparison: No prior exam(s) for comparison. Findings: Bilateral CC and MLO views were obtained. This examination was reviewed with the aid of a computer-aided detectionsystem(CAD). The breast tissue density is average. A few scattered benign type calcifications bilaterally. Scattered benigntype nodularity. No suspicious findings. Prior exam was performed over 12 years ago. us Vannessa Bell MD MAMMO ORDERABLES Edited Re sult - Final documented in this encounter Visit Diagnoses Diagnosis Other screening mammogram Other screening mammogram documented in this encounter Care Teams Paper Core Machine Operator Relationship Specialty Start Date End Date Jean Pierre Bolivar MD PCP - General Internal Medicine 09/16/17 10/29/20 documented as of this encounter
--- OUTSIDE RECORDS SUMMARY | 2025-03-15 17:05 | XMS_ITS | Clinical Summary ---
Author Organization [facility] [address] [place] [address] Care Team Providers Care Gear Machinist Name Role Phone Unavailable Primary Care Provider Unavailabl e Allergies Active Allergy Reactions Criticality Noted Date Comments Latex Rash Low 11/09/2008 Lovastatin Nausea and Vomiting Low 11/16/2009 Olanzapine Other (See Comments) 07/25/2008 Pancreatitis Quetiapine Unknown 02/09/2011 Rosuvastatin Muscle Pain Low 01/23/2010 Zolpidem Hallucination Low 01/23/2009 Medications diclofenac sodium (VOLTAREN) 1 % gelIndications:Ost eoarthritis of spine with radiculopathy, cervical region APPLY 4 GRAMS TOPICALLY TO NECK FOUR TIMES DAILY NEEDED 100 Gram 9 Active baclofen (LIORESAL) 10 mg tabletIndications: Muscle injury,Muscle spasm Take 1 Tablet (10 mg) by mouth 3 times daily as needed for Pain. 30 Tablet 9 Active amLODIPine (NORVASC) 10 mg tabletIndications: Essential hypertension TAKE 1 TABLET BY MOUTH ONCE DAILY 90 Tablet 0 Active albuterol HFA 90 mcg inhalerIndications :Mucopurulent chronic bronchitis (CMS/HCC) USE 2 PUFFS EVERY 6 HOURS NEEDED FOR SHORTNESS OF BREATH 8.5 Gram 11 0 Active simvastatin (ZOCOR) 10 mg tabletIndications: Mixed hyperlipidemia Take 1 Tablet (10 mg) by mouth daily with supper. 90 Tablet 3 0 Active docusate sodium (COLACE) 100 mg capsule Take 100 mg by mouth 2 times daily. Active ondansetron (ZOFRAN) 4 mg Tablet TAKE 1 TABLET BY MOUTH EVERY 8 HOURS NEEDED FOR NAUSEA/VOMITI NG 30 Tablet 0 Active lubiprostone (Amitiza) 24 mcg CapsuleIndications :Drug-induced constipation,Abdom inal adhesions Take 1 Capsule (24 mcg) by mouth 2 times daily with meals. 60 Capsule 5 0 Active amitriptyline (ELAVIL) 100 mg tabletIndications: Generalized anxiety disorder,PTSD (post-traumatic stress disorder),Bipolar disorder, in full remission, most recent episode mixed TAKE 1 TABLET BY MOUTH EVERY DAY AT BEDTIME 90 Tablet 3 0 Active PEG-Electrolyte Soln (NULYTELY) 420 g Recon Soln See instructions. 4000 mL 0 Active Gavilyte-C 240-22.72-6.72 -5.84 gram solution 0 Active oxyCODONE-acetamin ophen (PERCOCET) 5-325 mg tabletIndications: Chronic pain syndrome,Chronic neck pain,Osteoarthriti s of cervical spine, unspecified spinal osteoarthritis complication status Take 1 Tablet by mouth every 8 hours as needed for Pain, Moderate or Pain, Severe. MUST LAST 30 DAYS Max Daily Amount: 3 Tablets 90 Tablet 1 Active Active Problems Problem Noted Date Diagnosed Date History of resection of small bowel 02/10/2020 Opioid use agreement exists 02/10/2020 Mucopurulent chronic bronchitis 02/04/2019 Osteoarthritis of spine with radiculopathy, cerv ical region 12/18/2017 Abdominal adhesions 12/18/2017 Generalized anxiety disorder 11/03/2017 Essential hypertension 09/18/2017 Gastroesophageal reflux disease without esophagi tis 09/08/2015 Enlarged thyroid 05/28/2015 PTSD (post-traumatic stress disorder) 05/28/2015 Drug-induced constipation 02/09/2011 Female stress incontinence 05/23/2010 Tobacco abuse 05/23/2010 Hyperlipidemia 08/25/2009 Osteopenia 09/20/2008 Elevated serum alkaline phosphatase level 2008 Resolved Problems Problem Noted Date Diagnosed Date Resolved Date Bipolar disorder 05/28/2015 02/10/2020 Abdominal pain 02/09/2011 12/18/2017 Generalized pain 10/09/2009 02/10/2020 Elevated BP 08/16/2008 09/18/2017 Constipation 08/16/2008 09/18/2017 Anxiety 07/25/2008 12/18/2017 Pancreatitis 09/18/2017 Pancreatitis 09/18/2017 Immunizations Immunization Administration Dates Next Due (ADACEL/BOOSTRIX)(10 YR UP) TDAP VACCINE, 0.5ML, IM 08/16/2008 Influenza A (H1N1) Vaccine IM 05/07/2009 Influenza Seasonal Unspecified Formulation IM ,04/06/2010 Pneumococcal Polysaccharide Vacc 23-isabel IM SCHIP 02/06/2016 Family History Medical History Relation Name Comments Heart Disease Father Breast Cancer Mother dx age 52 Hypertension Mother Respiratory Disease Mother Osteoporosis Sister Ovarian Cancer Sister dx age 49 Colon Cancer Neg Hx Relation Name Status Comments Father Mother Sister Social History Tobacco Use Types Packs/Day Years Used Date Smoking Tobacco: Every Day Cigarettes 0.3 5 Smokeless Tobacco: Never Tobacco Cessation:Ready to Q uit: No; Counseling Given: Yes Alcohol Use Standard Drinks/Week Comments Yes 2 (1 standard drink = 0.6 oz pur e alcohol) occasional Comments No Sex and Gender Information Value Date Recorded Sex Assigned at Not on file Legal Sex Female 3:35 AM PIPELINE INTEGRITY ENGINEER Gender Identity Not on file Sexual Orientation Not on file Last Filed Vital Signs Vital Sign Reading Time Taken Comments Blood Pressure 134/86 06/09/2020 1:47 PM PIPELINE INTEGRITY ENGINEER Pulse 70 06/09/2020 1:47 PM PIPELINE INTEGRITY ENGINEER Temperature 36.8 C (98.2 F) 02/23/2020 12:10 PM CDT Respiratory Rate 18 06/09/2020 1:47 PM PIPELINE INTEGRITY ENGINEER Oxygen Saturation 99% 06/09/2020 1:47 PM PIPELINE INTEGRITY ENGINEER Inhaled Oxygen Concentration - - Weight 59.9 kg (132 lb) 06/06/2020 9:13 AM PIPELINE INTEGRITY ENGINEER Height 160 cm (5' 3 ) 06/06/2020 9:13 AM PIPELINE INTEGRITY ENGINEER Body Mass Index 23.38 06/06/2020 9:13 AM PIPELINE INTEGRITY ENGINEER Plan of Treatment Health Maintenance Due Date Last Done Comments FIT-DNA Q 3 years 1999 FIT/FOBT Q 1 year 1999 Flex Sig/CT Colonography Q 5 years 1999 ZOSTER VACCINE (1 of 2) 2004 BREAST CANCER SCREENING 03/23/2011 03/23/2010 RSV VACCINE (60+ or ) (1 - Risk 60-74 years 1-dose series) 2014 PNEUMOCOCCAL VACCINE 50+ YEA RS (2 of 2 - PCV) 02/05/2017 02/06/2016 DTAP/TDAP/TD VACCINES (2 - T d or Tdap) 08/16/2018 08/16/2008 OSTEOPOROSIS SCREENING 2019 09/02/2008 INFLUENZA VACCINE (#1) 2025 9, 04/02/2018, 04/02/2018, Additional history exists COLORECTAL SCREENING 06/09/2025 06/09/2020, 06/09/2020, 04/20/2020, Additional history exists Colorectal Cancer Screening 06/09/2025 Procedures Procedure Name Priority Date/Time Associated Diagnosis Comments COLONOSCOPY REPORT 06/09/2020 1: 34 PM PIPELINE INTEGRITY ENGINEER MAMMO SCREEN BILAT W OR WO CAD Routine 03/23/2010 10:33 AM CDT Other screening mammogram XR DEXA BONE DENSITY AXIAL 1 OR MORE SITES Routine 09/02/2008 1:46 PM PIPELINE INTEGRITY ENGINEER Post Menopausal Syndrome from Last 3 Months or Most Recently Relevant to Health Maintenance Results * COLONOSCOPY REPORT (06/09/2020 1:34 PM PIPELINE INTEGRITY ENGINEER) Narrative Procedure Note Yohannes Morales MD - 06/09/2020 1:34 PM CST [facility] GI Patient Name: Nena Mahan Procedure Date: 06/09/2020 Date of : 1955 Admit Type: Outpatient Age: 64 Attending MD: Yohannes Morales , Procedure: Colonoscopy Indications: Abnormal CT of the GI tract, Change in bowel habits, Constipation Providers: Yohannes Morales Referring MD: Jean Pierre Bolivar Medicines: Monitored Anesthesia Care Complications: No immediate complications. Procedure: After I obtained informed consent, the scope was passed under direct vision. Throughout the procedure, the patient's blood pressure, pulse, and oxygen saturations were monitored continuously. The Colonoscope was introduced through the anus and advanced to the cecum, identified by appendiceal orifice and ileocecal valve. The colonoscopy was performed without difficulty. The patient tolerated the procedure well. The quality of the bowel preparation was evaluated using the BBPS ([place] Bowel Preparation Scale) with scores of: Right Colon = 0 (unprepared, mucosa not seen due to solid stool that cannot be cleared or unseen proximal colon segment in a colonoscopy aborted due to inadequate bowel prep), Transverse Colon = 1 (portion of mucosa seen, but other areas not well seen due to staining, residual stool and/or opaque liquid) and Left Colon = 1 (portion of mucosa seen, but other areas not well seen due to staining, residual stool and/or opaque liquid). The total BBPS score equals 2. The quality of the bowel preparation was inadequate. Estimated Blood Loss: Estimated blood loss was minimal. Findings: There is no endoscopic evidence of mass or stricture in the entire colon. Impression: - Preparation of the colon was inadequate. No fungating large mass to explain the change in bowel habits was noted. - No specimens collected. Recommendation: Rebook with extended (3+) day prep and mac. Today was a two day prep and I think she would need at least two more. Used a peds scope due to tortuous left colon in Oct. Yohannes Morales, 06/09/2020 1:34:36 PM Number of Addenda: 0 Note Initiated On: 06/09/2020 1:10 PM Scope Withdrawal Time 0 hours 1 minute 24 seconds Scope In: 1:18:58 PM Scope Out: 1:26:47 PM [address] [place], [place] Yohannes Morales MD GI PROCEDURE ORDERABLES Final Result * MAMMO DIGITAL SCREEN BILAT (03/23/2010 10:33 [...] MAMMO ORDERABLES Edited Re sult - Final * XR DEXA BONE DENSITY AXIAL 1 OR MORE SITES (09/02/2008 1:46 PM PIPELINE INTEGRITY ENGINEER) Anatomical Region Laterality Modality Nuclear Medicine 09/02/2008 1:23 PM PIPELINE INTEGRITY ENGINEER Impressions 09/03/2008 12:59 PM PIPELINE INTEGRITY ENGINEER Impression: The patient does not have osteoporosis at this time, however, she does have significant osteopenia of the lumbar spine and potentially so of the left hip. This puts her at significant increased risk for fragility fracture in both of these regions. The degree of bone mineral loss in the lumbar spine represents a significant acceleration of bone mineral loss for the patient's age. This could be secondary to metabolic bone disease. Further diagnostic and therapeutic measures should be undertaken in an effort to prevent further bone mineral loss. Consideration should also be given to repeating this examination in approximately two years. jaw - uploaded from [employer] - Narrative 09/03/2008 12:59 PM PIPELINE INTEGRITY ENGINEER DEXA Evaluation of the Lumbar Spine and Left Proximal Femur: Reason for Consultation: Menopause. Evaluation of bone mineral density. The following absorptiometry data were obtained. The overall technical quality of the study is good. Serial measurement number one. L1 through L4 BMD (g/cm2): 0.888 Young adult %: 75 Adult T-score: -2.4 Left Femoral Neck BMD (g/cm2): 0.795 Young adult %: 77 Adult T-score: -1.8 Left Total Hip BMD (g/cm2): 0.840 Young adult %: 83 Adult T-score: -1.3 The patient demonstrates marked osteopenia of the trabecular bone of her lumbar spine. She has at least 24% less mineral than the mean projected for a young normal, ages 20 to 40. She demonstrates moderate osteopenia of the neck region and mild osteopenia of the total hip region of the left hip. Procedure Note Walt Sandy MD - 09/03/2008 DEXA Evaluation of the Lumbar Spine and Left Proximal Femur: Reason for Consultation: Menopause. Evaluation of bone mineraldensity. The following absorptiometry data were obtained. The overall technicalquality of the study is good. Serial measurement number one. L1 through L4 BMD (g/cm2): 0.888 Young adult %: 75 Adult T-score: -2.4 Left Femoral Neck BMD (g/cm2): 0.795 Young adult %: 77 Adult T-score: -1.8 Left Total Hip BMD (g/cm2): 0.840 Young adult %: 83 Adult T-score: -1.3 The patient demonstrates marked osteopenia of the trabecular bone of herlumbar spine. She has at least 24% less mineral than the mean projected for a young normal, ages 20 to40. She demonstrates moderate osteopenia of the neck region and mild osteopenia of the total hip regionof the left hip. IMPRESSION Impression: The patient does not have osteoporosis at this time, however, she doeshave significant osteopenia of the lumbar spine and potentially so of the left hip. This puts her atsignificant increased risk for fragility fracture in both of these regions. The degree of bone mineralloss in the lumbar spine represents a significant acceleration of bone mineral loss for thepatient's age. This could be secondary to metabolic bone disease. Further diagnostic and therapeutic measuresshould be undertaken in an effort to prevent further bone mineral loss. Consideration should also be givento repeating this examination in approximately two years. bahman - uploaded from [employer] - Vannessa Bell MD DIAGNOSTIC IMAGING ORDERAB LES Final Result from Last 3 Months or Most Recently Relevant to Health Maintenance Insurance [place] Member Subscriber Plan / Payer (Ef fective 2007-Present) Name:Nena Mahan Relation to Subscriber:Self Name:[place] Payer ID:[id number] Group ID:Not on file Type:Medicaid Address: [address] [place] Member Subscriber Plan / Payer (Ef fective 2007-Present) Name:[place] Relation to Subscriber:Self Name:NegritoNena Payer ID:[id number] Group ID:Not on file Type:Medicaid Address: [address] [place] [address] Advance Directives For more information, please contact: [phone] * Full Code (Latest Code Status on File) Date Activated Date Inactivated Comments 04/20/2020 7:21 AM 04/20/2020 11:02 AM * Full Code Date Activated Date Inactivated Comments 03/18/2011 6:36 PM 03/19/2011 7:28 PM * Full Code Date Activated Date Inactivated Comments 02/09/2011 5:35 PM 02/14/2011 2:44 PM * Full Code Date Activated Date Inactivated Comments 11/18/2008 7:49 AM 11/19/2008 2:01 AM
--- OUTSIDE RECORDS SUMMARY | 2025-03-15 17:05 | XMS_ITS | Encounter Summary ---
Author Organization [facility] Address [address] [place] [address] Care Team Providers Care Cover Mat Machine Operator Name Role Phone Jean Pierre Bolivar MD Primary Care Provider Nadiya dan Encounter Details Date Type Department Care Team (Latest Contact Info) Description 03/28/2004 Outpatient Historical [facility] Neurology [address], [address] [place] [address] Des Hickey MD NO ADDRESS ON FILE PSYCHO EPI INTRACTABLE (CMS/HCC) (Primary Dx) Social History Tobacco Use Types Packs/Day Years Used Date Smoking Tobacco: Never Assessed Comments Unknown Sex and Gender Information Value Date Recorded Sex Assigned at Not on file Legal Sex Female 3:35 AM LIMEHOUSE WORKER Gender Identity Not on file Sexual Orientation Not on file documented as of this encounter Plan of Treatment Not on file documented as of this encounter Visit Diagnoses Diagnosis Localization-related (focal) (partial) epilepsy and epileptic syndromes with complex partial seizures, with intractable epilepsy- Primary documented in this encounter Care Teams Cover Mat Machine Operator Relationship Specialty Start Date End Date Jean Pierre Bolivar MD PCP - General Internal Medicine 09/16/17 10/29/20 documented as of this encounter
--- OUTSIDE RECORDS SUMMARY | 2025-03-15 17:05 | XMS_ITS | Encounter Summary ---
Author Organization [facility] Address [address] [place] [address] Care Team Providers Care Surgery Manager Name Role Phone Jean Pierre Bolviar MD Primary Care Provider aNdiya dan Encounter Details Date Type Department Care Team (Latest Contact Info) Description 05/09/2004 Outpatient Historical [facility] Neurology [address], [address] [place] [address] Des Hickey MD NO ADDRESS ON FILE PSYCHO EPI INTRACTABLE (CMS/HCC) (Primary Dx); DEPRESSIVE DISORDER NEC Social History Tobacco Use Types Packs/Day Years Used Date Smoking Tobacco: Never Assessed Comments Unknown Sex and Gender Information Value Date Recorded Sex Assigned at Not on file Legal Sex Female 3:35 AM TUBE MAN Gender Identity Not on file Sexual Orientation Not on file documented as of this encounter Plan of Treatment Not on file documented as of this encounter Visit Diagnoses Diagnosis Localization-related (focal) (partial) epilepsy and epileptic syndromes with complex partial seizures, with intractable epilepsy- Primary Depressive disorder, not elsewhere classified documented in this encounter Care Teams Surgery Manager Relationship Specialty Start Date End Date Jean Pierre Bolivar MD PCP - General Internal Medicine 09/16/17 10/29/20 documented as of this encounter
--- OUTSIDE RECORDS SUMMARY | 2025-03-15 17:05 | XMS_ITS | Encounter Summary ---
Author Organization [facility] Address [address] [place] [address] Care Team Providers Care Interior Decorator Paperhanging Name Role Phone Jean Pierre Bolivar MD Primary Care Provider Nadiya dan Encounter Details Date Type Department Care Team (Latest Contact Info) Description 06/22/[address] [facility] Neurology [address], [address] [place] [address] Des Hickey MD NO ADDRESS ON FILE CONVULSIONS, OTHER (CMS/HCC) (Primary Dx); DEPRESSIVE DISORDER NEC Social History Tobacco Use Types Packs/Day Years Used Date Smoking Tobacco: Never Assessed Comments Unknown Sex and Gender Information Value Date Recorded Sex Assigned at Not on file Legal Sex Female 3:35 AM FINGERNAIL SCULPTOR Gender Identity Not on file Sexual Orientation Not on file documented as of this encounter Plan of Treatment Not on file documented as of this encounter Visit Diagnoses Diagnosis Other convulsions- Primary Depressive disorder, not elsewhere classified documented in this encounter Care Teams Interior Decorator Paperhanging Relationship Specialty Start Date End Date Jean Pierre Bolivar MD PCP - General Internal Medicine 09/16/17 10/29/20 documented as of this encounter
--- OUTSIDE RECORDS SUMMARY | 2025-03-15 17:05 | XMS_ITS | Encounter Summary ---
Author Organization [facility] Address [address] [place] [address] Care Team Providers Care Associate Civil Engineer Name Role Phone Jean Pierre Bolivar MD Primary Care Provider Nadiya dan Encounter Details Date Type Department Care Team (Late st Contact Info) Description 10/17/2009 Ancillary Orders [facility] [address] [place] [address] Vannessa Bell MD [address] [place] [id number] Other Screening Mammogram Social History Tobacco Use Types Packs/Day Years Used Date Smoking Tobacco: Every Day Cigarettes 0.5 10 Started: 08/07/1998; Last attempted to quit: 08/07/2008 Alcohol Use Standard Drinks/Week Comments No 0 (1 standard drink = 0.6 oz pur e alcohol) Comments No Sex and Gender Information Value Date Recorded Sex Assigned at Not on file Legal Sex Female 3:35 AM CANAL STRUCTURE OPERATOR Gender Identity Not on file Sexual Orientation Not on file documented as of this encounter Plan of Treatment Not on file documented as of this encounter Visit Diagnoses Diagnosis Other screening mammogram documented in this encounter Care Teams Associate Civil Engineer Relationship Specialty Start Date End Date Jean Pierre Bolivar MD PCP - General Internal Medicine 09/16/17 10/29/20 documented as of this encounter
--- OUTSIDE RECORDS SUMMARY | 2025-03-15 17:05 | XMS_ITS | Encounter Summary ---
Author Organization [facility] Address [address] [place] [address] Care Team Providers Care Administrative Judge Name Role Phone Jean Pierre Bolivar MD Primary Care Provider Nadiya dan Encounter Details Date Type Department Care Team (Late st Contact Info) Description 04/11/2004 Outpatient Historical [facility] [place] [address] [address] 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
--- OUTSIDE RECORDS SUMMARY | 2025-03-15 17:05 | XMS_ITS | Encounter Summary ---
Author Organization [facility] Address [address] [place] [address] Care Team Providers Care Food Consultant Name Role Phone Jean Pierre Bolivar MD Primary Care Provider Nadiya dan Encounter Details Date Type Department Care Team ([facility] st Contact Info) Description 07/16/2004 Outpatient Historical [facility] [address] [place] [address] Social History Tobacco Use Types Packs/Day Years Used Date Smoking Tobacco: Never Assessed Comments Unknown Sex and Gender Information Value Date Recorded Sex Assigned at Not on file Legal Sex Female 3:35 AM PRE PLANNING ADVISOR Gender Identity Not on file Sexual Orientation Not on file documented as of this encounter Plan of Treatment Not on file documented as of this encounter Visit Diagnoses Not on filedocumented in this encounter Care Teams Food Consultant Relationship Specialty Start Date End Date Jean Pierre Bolivar MD PCP - General Internal Medicine 09/16/17 10/29/20 documented as of this encounter
--- OUTSIDE RECORDS SUMMARY | 2025-03-15 17:05 | XMS_ITS | Encounter Summary ---
Author Organization [facility] Address [address] [place] [address] Care Team Providers Care Name Plate Stamping Machine Operator Name Role Phone Jean Pierre Bolivar MD Primary Care Provider Nadiya dan Encounter Details Date Type Department Care Team (Late st Contact Info) Description 03/12/2004 Outpatient [facility] Ambulance [address] [place] [address] AMBULANCE, [facility] CONVULSIONS, OTHER (CMS/HCC) (Primary Dx) Social History Tobacco Use Types Packs/Day Years Used Date Smoking Tobacco: Never Assessed Comments Unknown Sex and Gender Information Value Date Recorded Sex Assigned at Not on file Legal Sex Female 3:35 AM CONTINUOUS IMPROVEMENT DIRECTOR Gender Identity Not on file Sexual Orientation Not on file documented as of this encounter Plan of Treatment Not on file documented as of this encounter Visit Diagnoses Diagnosis Other convulsions- Primary documented in this encounter Care Teams Name Plate Stamping Machine Operator Relationship Specialty Start Date End Date Jean Pierre Bolivar MD PCP - General Internal Medicine 09/16/17 10/29/20 documented as of this encounter
--- OUTSIDE RECORDS SUMMARY | 2025-03-15 17:05 | XMS_ITS | Encounter Summary ---
Author Organization [facility] Address [address] [place] [address] Care Team Providers Care Manager Recovery Name Role Phone Jean Pierre Bolivar MD Primary Care Provider Nadiya dan Encounter Details Date Type Department Care Team (Late st Contact Info) Description 03/12/2004 Emergency [facility] Emergency Department [address] [place] [address] Darci Blackmon MD NO ADDRESS ON FILE CONVULSIONS, OTHER (CMS/HCC) (Primary Dx) Social History Tobacco Use Types Packs/Day Years Used Date Smoking Tobacco: Never Assessed Comments Unknown Sex and Gender Information Value Date Recorded Sex Assigned at Not on file Legal Sex Female 3:35 AM SUPERVISOR FRAME SAMPLE AND PATTERN Gender Identity Not on file Sexual Orientation Not on file documented as of this encounter Plan of Treatment Not on file documented as of this encounter Visit Diagnoses Diagnosis Other convulsions- Primary documented in this encounter Care Teams Manager Recovery Relationship Specialty Start Date End Date Jean Pierre Bolivar MD PCP - General Internal Medicine 09/16/17 10/29/20 documented as of this encounter
--- OUTSIDE RECORDS SUMMARY | 2025-03-15 17:05 | XMS_ITS | Encounter Summary ---
Author Organization [facility] Address [address] [place] [address] Care Team Providers Care Cloud Operations Engineer Name Role Phone Jean Pierre Bolivar MD Primary Care Provider Nadiya dan Encounter Details Date Type Department Care Team (Late st Contact Info) Description 07/01/2008 Outpatient [facility] [address] [place] [address] AMBULANCE, [facility] Social History Tobacco Use Types Packs/Day Years Used Date Smoking Tobacco: Never Assessed Comments Unknown Sex and Gender Information Value Date Recorded Sex Assigned at Not on file Legal Sex Female 3:35 AM PLATFORM BUILDER Gender Identity Not on file Sexual Orientation Not on file documented as of this encounter Plan of Treatment Not on file documented as of this encounter Visit Diagnoses Not on filedocumented in this encounter Care Teams Cloud Operations Engineer Relationship Specialty Start Date End Date Jean Pierre Bolivar MD PCP - General Internal Medicine 09/16/17 10/29/20 documented as of this encounter
--- OUTSIDE RECORDS SUMMARY | 2025-03-15 17:05 | XMS_ITS | Encounter Summary ---
Author Organization [facility] Address [address] [place] [address] Care Team Providers Care Associate Editor Name Role Phone Jean Pierre Bolivar MD Primary Care Provider Nadiya dan Encounter Details Date Type Department Care Team (Latest Contact Info) Description 04/11/2004 Outpatient Historical [facility] Imaging Services [facility] 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
--- OUTSIDE RECORDS SUMMARY | 2025-03-15 17:05 | XMS_ITS | Encounter Summary ---
Author Organization [facility] Address [address] [place] [address] Care Team Providers Care Stadium Manager Name Role Phone Jean Pierre Bolivar MD Primary Care Provider Nadiya dan Encounter Details Date Type Department Care Team (Late st Contact Info) Description 06/04/2004 Outpatient [facility] [address] 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
[2025-03-15 17:06] VITALS: BP 152/94; PULSE 106; RESP 16; TEMP 36.7; O2SAT 96; BMI 21.9
--- OUTSIDE RECORDS SUMMARY | 2025-03-15 17:06 | XMS_ITS | Clinical Summary ---
Author Organization [facility] Address [address] Attn: Epic Prelude ADT ASHA STUART [address] Care Team Providers Care Union Contract Representative Name Role Phone Jean Pierre Bolivar MD Primary Care Provider Unavaila ble Allergies Active Allergy Reactions Criticality Noted Date Comments Latex Rash Low 11/09/2008 Lovastatin Nausea and Vomiting Low 11/16/2009 Olanzapine Other (See Comments) 07/25/2008 Pancreatitis Quetiapine Unknown 02/09/2011 Rosuvastatin Muscle Pain Low 01/23/2010 Zolpidem Hallucination Low 01/23/2009 Medications baclofen (LIORESAL) 10 mg tabletIndications: Muscle injury,Muscle spasm Take 1 Tablet (10 mg) by mouth 3 times daily as needed for Pain. 30 Tablet 0 9 Active simvastatin (ZOCOR) 10 mg tabletIndications: Mixed hyperlipidemia Take 1 Tablet (10 mg) by mouth daily with supper. 90 Tablet 3 0 Active docusate sodium (COLACE) 100 mg capsule Take 100 mg by mouth 2 times daily. 0 Active amLODIPine (NORVASC) 10 mg tabletIndications: Essential hypertension TAKE 1 TABLET BY MOUTH ONCE DAILY 90 Tablet 0 0 Active albuterol HFA 90 mcg inhalerIndications :Mucopurulent chronic bronchitis (CMS/HCC) USE 2 PUFFS EVERY 6 HOURS NEEDED FOR SHORTNESS OF BREATH 8.5 Gram 11 0 Active ondansetron (ZOFRAN) 4 mg Tablet TAKE 1 TABLET BY MOUTH EVERY 8 HOURS NEEDED FOR NAUSEA/VOMITI NG 30 Tablet 0 0 Active lubiprostone (AMITIZA) 24 mcg CapsuleIndications :Drug-induced constipation,Abdom inal adhesions Take 1 Capsule (24 mcg) by mouth 2 times daily with meals. 60 Capsule 5 0 Active PEG-Electrolyte Soln (NULYTELY) 420 g Recon Soln See instructions. 4,000 mL 0 0 Active peg 3350-electrolytes (Gavilyte-C) 240-22.72-6.72 -5.84 gram solution 0 Active oxyCODONE-acetamin ophen (PERCOCET) 5-325 mg tabletIndications: Chronic pain syndrome,Chronic neck pain,Osteoarthriti s of cervical spine, unspecified spinal osteoarthritis complication status Take 1 Tablet by mouth every 8 hours as needed for Pain, Moderate or Pain, Severe. MUST LAST 30 DAYS Max Daily Amount: 3 Tablets 90 Tablet 0 1 Active amitriptyline (ELAVIL) 100 mg tabletIndications: Generalized anxiety disorder,PTSD (post-traumatic stress disorder),Bipolar disorder, in full remission, most recent episode mixed TAKE 1 TABLET BY MOUTH EVERY DAY AT BEDTIME 90 Tablet 3 0 Active diclofenac sodium (VOLTAREN) 1 % gelIndications:Ost eoarthritis of spine with radiculopathy, cervical region APPLY 4 GRAMS TOPICALLY TO NECK FOUR TIMES DAILY NEEDED 100 Gram 0 9 Active Active Problems Problem Noted Date Diagnosed Date History of resection of small bowel 02/10/2020 Opioid use agreement exists 02/10/2020 Mucopurulent chronic bronchitis 02/04/2019 Osteoarthritis of spine with radiculopathy, cerv ical region 12/18/2017 Abdominal adhesions 12/18/2017 Generalized anxiety disorder 11/03/2017 Essential hypertension 09/18/2017 Gastroesophageal reflux disease without esophagi tis 09/08/2015 PTSD (post-traumatic stress disorder) 05/28/2015 Enlarged thyroid 05/28/2015 Drug-induced constipation 02/09/2011 Tobacco abuse 05/23/2010 Female stress incontinence 05/23/2010 Hyperlipidemia 08/25/2009 Osteopenia 09/20/2008 Elevated serum [...] Used Date Smoking Tobacco: Every Day Cigarettes Smokeless Tobacco: Never Alcohol Use Standard Drinks/Week Comments Yes 2 (1 standard drink = 0.6 oz pur e alcohol) Comments Unknown Sex and Gender Information Value Date Recorded Sex Assigned at Not on file 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 Gender Identity Not on file Sexual Orientation Not on file Last Filed Vital Signs Vital Sign Reading Time Taken Comments Blood Pressure 134/86 06/09/2020 1:47 PM [employer]FF[employer]IRS Pulse 70 06/09/2020 1:47 PM [employer]FF[employer] Temperature 36.8 C (98.2 F) 02/23/2020 12:10 PM CDT Respiratory Rate 18 06/09/2020 1:47 PM [employer]FF[employer]IRS Oxygen Saturation - - Inhaled Oxygen Concentration - - Weight 59.9 kg (132 lb) 06/06/2020 9:13 AM [employer] AFF[employer]IRS Height 160 cm (5' 3 ) 06/06/2020 9:13 AM [employer] AFFAIRS Body Mass Index 23.38 06/06/2020 9:13 AM [employer] AFFAIRS Plan of Treatment Health Maintenance Due Date Last Done Comments FIT-DNA Q 3 years 1999 FIT/FOBT Q 1 year 1999 Flex Sig/CT Colonography Q 5 years 1999 ZOSTER VACCINE (1 of 2) 2004 BREAST CANCER SCREENING 03/23/2011 03/23/2010 PNEUMOCOCCAL VACCINE 50+ YEA RS (2 of 2 - PCV) 02/05/2017 02/06/2016 DTAP/TDAP/TD VACCINES (2 - T d or Tdap) 08/16/2018 08/16/2008 OSTEOPOROSIS SCREENING 2019 09/02/2008 INFLUENZA VACCINE (#1) 2025 9, 04/02/2018, 04/02/2018, Additional history exists COLORECTAL SCREENING 06/09/2025 06/09/2020, 04/20/20 Colorectal Cancer Screening 06/09/2025 RSV VACCINE (60+ or ) (1 - 1-dose 75+ series) 2029 Procedures Procedure Name Priority Date/Time Associated Diagnosis Comments COLONOSCOPY REPORT 06/09/2020 1: 34 PM [employer] MAMMO SCREEN BILAT W OR WO CAD Routine 03/23/2010 10:33 AM CDT Other screening mammogram XR DEXA BONE DENSITY AXIAL 1 OR MORE SITES Routine 09/02/2008 1:46 PM [employer] Asymptomatic postmenopausal status from Last 3 Months or Most Recently Relevant to Health Maintenance Results * COLONOSCOPY REPORT (06/09/2020 1:34 PM [employer]) Narrative Procedure Note Yohannes Morales MD - 06/09/2020 1:34 PM CST Procedures signed by Yohannes Morales MD at 06/09/2020 1:34 PM Author: Yohannes Morales MD Service: -- Author Type: Physician Filed: 06/09/2020 1:34 PM Date of Service: 06/09/2020 1:34 PM Status:Signed Water Taxi Ferry Operator: Yohannes Morales MD (Physician) Procedure Orders 1. COLONOSCOPY REPORT [[id number]] ordered by Yohannes Morales MDat 06/09/[address] [place] [address] GI Patient Name: Nena Mahan Procedure Date: [...] bowel preparation was evaluated using the BBPS ([place] Bowel Preparation Scale) with scores of: Right [...] scope due to tortuous left colon in Apr. Yohannes Morales, 06/09/2020 1:34:36 PM Number of Addenda: 0 Note Initiated On: 06/09/2020 1:10 PM Scope Withdrawal Time 0 hours 1 minute 24 seconds Scope In: 1:18:58 PM Scope Out: 1:26:47 PM [address] [place], [place] us Sgf Scanning GI PROCEDURE ORDERABLES Edited R esult - Final * MAMMO SCREEN BILAT W OR WO CAD (03/23/2010 10:33 AM CDT) Anatomical Region Laterality Modality Breast Bilateral Other Addenda Addendum by Sarath Manuel MD on 05/04/2010 11:38 AM CDT ADDENDUM TO DIGITAL SCREENING MAMMOGRAM OF 03/23/10: The patient's prior films remain unavailable. No suspicious findings in either breast and she can undergo bilateral screening in one year's time. *Addendum dictated on 04/30/10 KARELY/perfecto Narrative 05/04/2010 11:38 AM CDT Bilateral Mammogram Reason for Exam: [...] ago. Procedure Note Sarath Manuel MD - 09/04/2022 Bilateral Mammogram Reason for Exam: Screening Comparison: [...] ago. us Vannessa Bell MD MAMMO ORDERABLES Final Res ult * XR DEXA BONE DENSITY AXIAL 1 OR MORE SITES (09/02/2008 1:46 PM [employer] [employer]) Anatomical Region Laterality Modality Other Impressions 09/03/2008 12:59 PM [employer] Impression: The patient does not have osteoporosis [...] approximately two years. bahman - uploaded from [employer] - Narrative 09/03/2008 12:59 PM [employer] DEXA Evaluation of the Lumbar Spine and [...] hip. Procedure Note Walt Sandy MD - 09/19/2022 DEXA Evaluation of the Lumbar Spine and [...] approximately two years. jaw - uploaded from [employer] - us Vannessa Bell MD DIAGNOSTIC IMAGING ORDERAB LES Final Result from Last 3 Months or Most Recently Relevant to Health Maintenance Care Teams Union Contract Representative Relationship Specialty Start Date End Date Jean Pierre Bolivar MD NO ADDRESS ON FILE PCP - General Internal Medicine 09/16/17
--- OUTSIDE RECORDS SUMMARY | 2025-03-15 17:06 | XMS_ITS | Encounter Summary ---
Author Organization [facility] Address [address] [place] [address] Care Team Providers Care Pickling Drum Operator Name Role Phone Jean Pierre Bolivar MD Primary Care Provider Nadiya dan Encounter Details Date Type Department Care Team (Late st Contact Info) Description 01/27/2009 Ancillary Orders [facility]- [place] [address] [place] [address] Jose Francisco Cam MD NO ADDRESS ON FILE Osteopenia Social History Tobacco Use Types Packs/Day Years Used Date Smoking Tobacco: Former Cigarettes 0.3 10 0 08/07/1998 - 08/07/2008 Alcohol Use Standard Drinks/Week Comments No 0 (1 standard drink = 0.6 oz pur e alcohol) Comments No Sex and Gender Information Value Date Recorded Sex Assigned at Not on file 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
--- OUTSIDE RECORDS SUMMARY | 2025-03-15 17:06 | XMS_ITS | Encounter Summary ---
Author Organization [facility] Address [address] [place] [address] Care Team Providers Care Waitstaff Captain Name Role Phone Jean Pierre Bolivar MD Primary Care Provider Nadiya dan Encounter Details Date Type Department Care Team (Late st Contact Info) Description 12/23/2008 Ancillary Orders [facility]- [place] [address] [place] [address] Jose Francisco Cam MD NO ADDRESS ON FILE Constipation Social History Tobacco Use Types Packs/Day Years Used Date Smoking Tobacco: Former Cigarettes 0.3 10 0 08/07/1998 - 08/07/2008 Alcohol Use Standard Drinks/Week Comments No 0 (1 standard drink = 0.6 oz pur e alcohol) Comments No Sex and Gender Information Value Date Recorded Sex Assigned at Not on file 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 Narrative 12/23/2008 4:28 PM CDT Exam: XR BARIUM ENEMA Date/Time of Exam: Dec 23, 2008 12:02:00 PM History: CONSTIPATION. Colorectal anastomosis secondary to ruptured bowel. Findings: The images and findings were reviewed with Dr. Vieira prior to the time of dictation. Bony view the abdomen shows a paucity of bowel gas over the left abdomen. Visualized loops of small bowel on the right showed no sign of distention. Anastomotic suture ring immediately superior to the symphysis pubis. Barium was introduced into the rectum via a pediatric enema tip. Contrast flows from the rectum to the cecum in the usual retrograde fashion. The colon is somewhat featureless. No constricting mass lesions or significant diverticular change is noted. There is reflux into the terminal ileum. Prominent ileocecal valve. No anastomotic stricture identified. Procedure Note Ibrahima Vieira MD - 12/23/2008 Exam: XR BARIUM ENEMA Date/Time of Exam: Dec 23, 2008 12:02:00 PM History: CONSTIPATION. Colorectal anastomosis secondary to ruptured bowel. Findings: The images and findings were reviewed with Dr. Vieira prior tothe time of dictation. Bony view the abdomen shows a paucity of bowel gas over the left abdomen.Visualized loops of small bowel on the right showed no sign of distention. Anastomotic suture ringimmediately superior to the symphysis pubis. Barium was introduced into the rectum via a pediatric enema tip. Contrastflows from the rectum to the cecum in the usual retrograde fashion. The colon is somewhat featureless.No constricting mass lesions or significant diverticular change is noted. There is reflux into theterminal ileum. Prominent ileocecal valve. No anastomotic stricture identified. IMPRESSION Impression: Apparent sigmoid colectomy with patent colorectalanastomosis. Jose Francisco Cam MD DIAGNOSTIC IMAGING ORDERABL ES Final Result documented in this encounter Visit Diagnoses Diagnosis Constipation Unspecified constipation Constipation Unspecified constipation documented in this encounter Care Teams Waitstaff Captain Relationship Specialty Start Date End Date Jean Pierre Bolivar MD PCP - General Internal Medicine 09/16/17 10/29/20 documented as of this encounter
[2025-03-15] MEDS: tetanus-dipt-pertussis 0.5 mL SDV IM (17:28)
--- NOTE | 2025-03-15 18:01 | PC.NURSE ---
Wound irrigated with Normal saline
--- NOTE | 2025-03-15 18:18 | W.ED.ANIMALB ---
HPI - Animal Bite General: Chief Complaint: Animal Bite Stated Complaint: dog scratch L leg Time Seen by Provider: 03/15/25 17:05 History of Present Illness: Patient is a 69-year-old female without medical issues reports to the emergency room after just prior to arrival her dog was jumping up on her, and accidentally scratched her left fallon. She states she has a 75 pound Labrador, that is vaccinated for rabies. She is not worried about her dog. The dog did this on accident, and was not attacking or biting in any way. This is a vertical laceration to her anterior left lower leg. Associated symptoms: Deny chills or fever(s) Related Data Previous Rx's ?Medication ?Instructions ?Recorded diclofenac sodium 1 % topical gel 4 g topical QID PRN arthritis -- 10/03/23 inability to take NSAIDS orally #100 grams amitriptyline 100 mg tablet 100 mg PO DAILY@2100 90 days #90 09/28/24 tabs bupropion HCl 150 mg 24 hr tablet, 150 mg PO QAM #30 tabs 09/29/24 extended release (Wellbutrin XL) omeprazole 40 mg capsule,delayed See Rx Instructions .Route 12/24/24 release .COMPLEX #90 caps alendronate 70 mg tablet (Fosamax) 70 mg PO .once a week #12 tabs 01/04/25 cyclobenzaprine 10 mg tablet See Rx Instructions .Route 02/07/25 .COMPLEX #30 tabs ondansetron HCl 4 mg tablet See Rx Instructions .Route 02/21/25 .COMPLEX #10 tabs gabapentin 300 mg capsule 300 mg PO QDAY #30 caps 03/08/25 amoxicillin 875 mg-potassium 1 tab PO Q12H #20 tabs 03/15/25 clavulanate 125 mg tablet Allergies Allergy/AdvReac Type Severity Reaction Status Date / Time latex Allergy Mild UNKNOWN Verified 02/04/25 08:16 citalopram (From Celexa) AdvReac Mild HIVES Verified 02/04/25 08:16 olanzapine (From Zyprexa) AdvReac Mild UNKNOWN Verified 02/04/25 08:16 Review of Systems General: Reports: 10 or more systems reviewed and unremarkable except in HPI and below Const: Denies: fever(s) or chills Card: Denies: chest pain or orthopnea Resp: Denies: dyspnea, productive cough or wheezing GI: Denies: abdominal pain, nausea or vomiting Musc: Reports: extremity pain (mild with laceration), joint pain, joint swelling, joint stiffness and limited range of motion Skin/Breast: Denies: rash, pruritus or dry skin Neuro: Denies: numbness in extremities or weakness in extremities Psych: Denies: anxiety Simon/Lymph: Denies: easy bruising or easy bleeding PFSH ED PFSH: Medical History (Updated 03/15/25 @ 18:19 by DEYANIRA Aranda) Bilateral carpal tunnel syndrome Cervical radiculopathy due to degenerative joint disease of spine Primary osteoarthritis, right shoulder Osteoporosis Adrenal nodule Acromioclavicular joint arthritis Greater tuberosity of humerus fracture Benign essential HTN Dyslipidemia COPD (chronic obstructive pulmonary disease) History of neck swelling History of nausea Chronic neck pain Chronic back pain History of bowel disorder Bipolar 1 disorder Surgical History S/P carpal tunnel release Date of procedure: September 30, 2024 Pre-op diagnosis: Right carpal tunnel syndrome Procedure done: Right carpal tunnel release Surgeon: Ina Grewal MD History of hysterectomy History of intestinal surgery History of neck surgery Family History Sister Diabetes Cancer lung Hypothyroidism Mother Cancer breast Father CAD (coronary artery disease) Social History Smoking and tobacco/nicotine status: current every day tobacco/nicotine user (ABOUT 5 CIGARETTES A DAY) cigarettes Quit status (tobacco/nicotine): has quit using Year quit tobacco: 2016 Alcohol intake: current Alcohol intake frequency: few times a week Substance/Drug Use: current Substance/Drug use frequency: daily Lives independently: Yes Household members: none Marital status: Number of children: 2 Number of grandchildren: 1 Physical Exam Narrative: EXAM NARRATIVE: nontoxic-appearing Const: COMMON NORMALS: no acute distress, average body habitus, patient oriented x3, no limitations and alert GENERAL APPEARANCE: cooperative; not anxious and not combative ORIENTATION/CONSCIOUSNESS: Yes awake, Yes oriented to person, Yes oriented to place and Yes oriented to time HENMT: COMMON NORMALS: normocephalic and atraumatic HEAD & SCALP: normocephalic and atraumatic Eye: COMMON NORMALS: Equal, round and reactive pupils present PUPIL: Yes Equal, round and reactive pupils present Lymph: LYMPHATIC: no lymphadenopathy noted Resp: COMMON NORMALS: normal respiratory effort, No retractions and clear to auscultation bilaterally AUSCULTATION: clear to auscultation bilaterally GI: COMMON NORMALS: Normal to inspection, nondistended, normoactive bowel sounds present, Soft to palpation and non-tender PALPATION: Yes Soft to palpation Neuro: COMMON NORMALS: patient oriented x3 SENSORIUM/ORIENTATION: Yes alert, Yes oriented to person, Yes oriented to place and Yes oriented to time SPEECH: speech normal Psych: ATTITUDE: Yes engaged ACTIVITY/MOTOR BEHAVIOR: Yes appropriate eye contact ATTENTION/CONCENTRATION: Yes attention grossly intact MEMORY/COGNITION: Yes memory grossly intact Skin: NARRATIVE SKIN EXAM: Vertical laceration with fat exposure. No muscle seen. Patient has full range of motion to left lower extremity. SKIN IMAGES (FEMALE):  1. 8 cm vertical laceration Procedures Laceration Laceration 1: Site: lower extremity Side (If applicable): left Size (cm): 8 Description: linear Depth: simple, single layer Local Anesthetic: lidocaine 1% and with epi Amount of anesthesia used (mL): 5 Pre-repair: wound explored, irrigated extensively and deep structures intact Skin layer closed with: nylon Size (cm): 4-0 Number of sutures: 3 Technique: simple, interrupted Course Vital Signs: Vital signs: Vital Signs Temperature 98.1 F 03/15/25 17:06 Pulse Rate 86 03/15/25 18:37 Respiratory Rate 16 03/15/25 17:06 Blood Pressure 164/97 03/15/25 18:37 Pulse Oximetry 97 03/15/25 18:37 Oxygen Delivery Me thod Room Air 03/15/25 17:06 MDM - Animal Bite Medical Decision Making 69-year-old female with a laceration to her left lower extremity anteriorly just prior to arrival by her dog. She is not interested in having any rabies follow-up since this her dog, her big dog came up to her excited, accidentally scraped her left lower anterior leg. This occurred just prior to arrival. She has been placed in loose sutures with the knowledge of this was an animal bite, and given a tetanus. She has been educated on Tylenol, ibuprofen, and ice for pain. All of her questions answered to her satisfaction, I have also discussed with her to return in 10 days or go to her primary care physician to have her sutures removed. I have also discussed this a new visit for her if she comes back to the ED. Medical Records I reviewed the patient's medical records. No radiology studies performed this visit Discharge Plan Discharge Patient Disposition: Home Clinical Impression: Bite by animal Laceration of left lower extremity Qualifiers: Encounter type: initial encounter Qualified Code(s): S81.812A - Laceration without foreign body, left lower leg, initial encounter Condition: Stable Prescriptions: New amoxicillin-pot clavulanate 875-125 mg tablet 1 tab PO Q12H Qty: 20 0RF No Action diclofenac sodium 1 % gel 4 g topical QID PRN (Reason: arthritis -- inability to take NSAIDS orally) Qty: 100 2RF Rx Instructions: apply to single shoulder, elbow, wrist or hand; bupropion HCl [Wellbutrin XL] 150 mg tablet extended release 24 hr 150 mg PO QAM Qty: 30 0RF amitriptyline 100 mg tablet 100 mg PO DAILY@2100 90 Days Qty: 90 1RF omeprazole 40 mg capsule,delayed release(DR/EC) See Rx Instructions .ROUTE .COMPLEX Qty: 90 0RF Dose Instruction: take 1 capsule BY MOUTH EVERY DAY Rx Instructions: take 1 capsule BY MOUTH EVERY DAY alendronate [Fosamax] 70 mg tablet 70 mg PO .once a week Qty: 12 3RF cyclobenzaprine 10 mg tablet See Rx Instructions .ROUTE .COMPLEX Qty: 30 3RF Dose Instruction: TAKE 1 TABLET BY MOUTH EVERY EVENING NEEDED FOR MUSCLE SPASMS Rx Instructions: TAKE 1 TABLET BY MOUTH EVERY EVENING NEEDED FOR MUSCLE SPASMS ondansetron HCl 4 mg tablet See Rx Instructions .ROUTE .COMPLEX Qty: 10 0RF Dose Instruction: TAKE 1 TABLET BY MOUTH EVERY 8 HOURS NEEDED FOR NAUSEA AND VOMITING Rx Instructions: TAKE 1 TABLET BY MOUTH EVERY 8 HOURS NEEDED FOR NAUSEA AND VOMITING gabapentin 300 mg capsule 300 mg PO QDAY Qty: 30 2RF Rx Instructions: take one tab QAM Discharge Orders: Discharge ED (Routine); Ordered 03/15/25 Ordered By: Sabi Loya Referrals: Emily Franco MD [Primary Care Provider, Family Practice] Discharge Diet: Usual diet Discharge Activity: Resume usual activity Patient Instructions: Animal Bite (ED), Laceration (ED), Patient Portal & Kate Instructions Activity Restrictions/Additional Instructions: - Remove your sutures in 10 days - Antibiotics that will need to be started in the morning or at the pharmacy. Take with food. This is x 10 days twice daily - Animal bites are dealt with slightly different than regular lacerations. - Make sure you return to ED if you have increasing redness, drainage, fever greater 100.4 ?F - Wash daily with Dial soap or pHisoDerm as we discussed. You may cover this area, however after 48 hours, uncovered so you can view this area daily. If it is in danger of being hit by the dog again, cover it, make sure you check it daily and wash daily. - You may come back here to remove your sutures, however this is a new visit charge. You may also go to your doctor to set up an appointment to remove in 10 days - You may ice this area that will help with pain. - You may utilize Tylenol and ibuprofen for pain. Print Language: Puerto Rican Coding Level of Care Code ED Physician Specialist for Amy Gomez
[2025-03-15 18:37] VITALS: BP 164/97; PULSE 86; O2SAT 97
== END 2025-03-15 18:38 | disposition home or self-care (01) ==
PROVIDERS: Emergency Provider Physician Assistant; PCP Family Medicine
DX: S81.812A Laceration without foreign body, left lower leg, initial encounter (principal); W54.8XXA Other contact with dog, initial encounter; J44.9 Chronic obstructive pulmonary disease, unspecified; I10 Essential (primary) hypertension; F17.210 Nicotine dependence, cigarettes, uncomplicated
CPT/HCPCS: 12004; 90471; 90715; 99283; J9999

== ENCOUNTER 2025-03-25 09:22 | Emergency (ER) | payer MEDICARE, MEDICAID, SELFPAY ==
--- OUTSIDE RECORDS SUMMARY | 2025-03-25 09:26 | XMS_ITS | Encounter Summary ---
Author Organization [facility] Address [address] [place] [address] Care Team Providers Care Scrap Materials Buyer Name Role Phone Jean Pierre Bolivar MD Primary Care Provider Nadiya dan Encounter Details Date Type Department Care Team (Latest Contact Info) Description 07/25/2004 Outpatient Historical [facility] [address], [address] [place] [address] Des Hickey MD NO ADDRESS ON FILE CONVULSIONS, OTHER (CMS/HCC) (Primary Dx); COMMON MIGRAINE W/O MENTN INTRACT; DEPRESSIVE DISORDER NEC Social History Tobacco Use Types Packs/Day Years Used Date Smoking Tobacco: Never Assessed Comments Unknown Sex and Gender Information Value Date Recorded Sex Assigned at Not on file 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
--- OUTSIDE RECORDS SUMMARY | 2025-03-25 09:26 | XMS_ITS | Encounter Summary ---
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
--- OUTSIDE RECORDS SUMMARY | 2025-03-25 09:26 | XMS_ITS | Encounter Summary ---
Author Organization [facility] Address [address] [place] [address] Care Team Providers Care Coke Still Cleaner Name Role Phone Jean Pierre Bolivar MD Primary Care Provider Unavaila ble Reason for Referral * Outpatient Services (Routine) - Closed Specialty Diagnoses / Procedures Referred By Contnghia florez Referred To Contact Diagnoses Other screening mammogram Procedures MAMMO DIGITAL SCREEN BILAT Vannessa Bell MD [address] [place] [address] Phone: tel: fax: Referral ID Status Reason Start Date Expiration Date Visits Re quested Visits Authorized [id number] Closed 03/05/2010 09/01/2010 1 1 Encounter Details Date Type Department Care Team (Late st Contact Info) Description 03/05/2010 Ancillary Orders [facility] [place] [facility] [address] [address] Vannessa Bell MD [address] [place] [address] Other Screening Mammogram Social History [...] file 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
--- OUTSIDE RECORDS SUMMARY | 2025-03-25 09:26 | XMS_ITS | Encounter Summary ---
Author Organization [facility] Address [address] [place] [address] Care Team Providers Care Hedge Trimmer Name Role Phone Jean Pierre Bolivar MD Primary Care Provider Nadiya dan Encounter Details Date Type Department Care Team (Late st Contact Info) Description 10/17/2009 Ancillary Orders [facility] [address] [place] [address] Vannessa Bell MD [address] [place] [phone] Other Screening Mammogram Social History Tobacco Use Types Packs/Day Years Used Date Smoking Tobacco: Every Day Cigarettes 0.5 10 Started: 08/07/1998; Last attempted to quit: 08/07/2008 Alcohol Use Standard Drinks/Week Comments No 0 (1 standard drink = 0.6 oz pur e alcohol) Comments No Sex and Gender Information Value Date Recorded Sex Assigned at Not on file 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
--- OUTSIDE RECORDS SUMMARY | 2025-03-25 09:26 | XMS_ITS | Encounter Summary ---
Author Organization [facility] Address [address] [place] [address] Care Team Providers Care Coding Compliance Specialist Name Role Phone Jean Pierre Bolivar MD Primary Care Provider Nadiya dan Encounter Details Date Type Department Care Team (Late st Contact Info) Description 03/12/2004 Emergency [facility] Emergency Department [address] 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
--- OUTSIDE RECORDS SUMMARY | 2025-03-25 09:26 | XMS_ITS | Encounter Summary ---
Author Organization [facility] Address [address] [place] [address] Care Team Providers Care Educational Audiologist Name Role Phone Jean Pierre Bolivar MD Primary Care Provider Nadiya dan Encounter Details Date Type Department Care Team (Late st Contact Info) Description 04/11/2004 Outpatient Historical [facility] [place] [address] 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
--- OUTSIDE RECORDS SUMMARY | 2025-03-25 09:26 | XMS_ITS | Encounter Summary ---
Author Organization [facility] Address [address] [place] [address] Care Team Providers Care Senior Design Engineer Name Role Phone Jean Pierre Bolivar MD Primary Care Provider Nadiya dan Encounter Details Date Type Department Care Team (Latest Contact Info) Description 06/22/2004 Outpatient Historical [facility]rology 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
--- OUTSIDE RECORDS SUMMARY | 2025-03-25 09:26 | XMS_ITS | Encounter Summary ---
Author Organization [facility] Address [address] [place] [address] Care Team Providers Care Brazer Electronic Name Role Phone Jean Pierre Bolivar MD Primary Care Provider Nadiya dan Encounter Details Date Type Department Care Team (Late st Contact Info) Description 03/12/2004 Outpatient [facility] [address] [place] [address] AMBULANCE, [facility] CONVULSIONS, OTHER (CMS/HCC) (Primary Dx) Social History Tobacco Use Types Packs/Day Years Used Date Smoking Tobacco: Never Assessed Comments Unknown Sex and Gender Information Value Date Recorded Sex Assigned at Not on file Legal Sex Female 3:35 AM PHYSICAL INTEGRATION PRACTITIONER Gender Identity Not on file Sexual Orientation Not on file documented as of this encounter Plan of Treatment Not on file documented as of this encounter Visit Diagnoses Diagnosis Other convulsions- Primary documented in this encounter Care Teams Brazer Electronic Relationship Specialty Start Date End Date Jean Pierre Bolivar MD PCP - General Internal Medicine 09/16/17 10/29/20 documented as of this encounter
--- OUTSIDE RECORDS SUMMARY | 2025-03-25 09:26 | XMS_ITS | Encounter Summary ---
Author Organization [facility] Address [address] [place] [address] Care Team Providers Care Cocoa Bean Roaster Helper Name Role Phone Jean Pierre Bolivar MD Primary Care Provider Nadiya dan Encounter Details Date Type Department Care Team (Latest Contact Info) Description 04/11/2004 Outpatient Historical [facility] 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
--- OUTSIDE RECORDS SUMMARY | 2025-03-25 09:26 | XMS_ITS | Encounter Summary ---
Author Organization [facility] Address [address] [place] [address] Care Team Providers Care Auto Body Service Mechanic Name Role Phone Jean Pierre Bolivar MD Primary Care Provider Nadiya dan Encounter Details Date Type Department Care Team (Latest Contact Info) Description 09/24/2004 Outpatient Historical [facility] [address], [address] [place] [address] Des Hickey MD NO ADDRESS ON FILE CONVULSIONS, OTHER (CMS/HCC) (Primary Dx); COMMON MIGRAINE W/O MENTN INTRACT Social History Tobacco Use Types Packs/Day Years Used Date Smoking Tobacco: Never Assessed Comments Unknown Sex and Gender Information Value Date Recorded Sex Assigned at Not on file Legal Sex Female 3:35 AM MECHANICAL SYSTEMS CONTROL ENGINEER Gender Identity Not on file Sexual Orientation Not on file documented as of this encounter Plan of Treatment Not on file documented as of this encounter Visit Diagnoses Diagnosis Other convulsions- Primary Migraine without aura, without mention of intractable migraine without mention of status migrainosus documented in this encounter Care Teams Auto Body Service Mechanic Relationship Specialty Start Date End Date Jean Pierre Bolivar MD PCP - General Internal Medicine 09/16/17 10/29/20 documented as of this encounter
--- OUTSIDE RECORDS SUMMARY | 2025-03-25 09:26 | XMS_ITS | Encounter Summary ---
Author Organization [facility] Address [address] [place] [address] Care Team Providers Care Surveyor Instrument Assistant Name Role Phone Jean Pierre Bolivar MD Primary Care Provider Nadiya dan Encounter Details Date Type Department Care Team (Latest Contact Info) Description 06/19/2004 Outpatient Historical [facility] [address] [place] [phone] Trey Jaime Jr., PsyD NO ADDRESS ON FILE DYSTHYMIC DISORDER (Primary Dx) Social History Tobacco Use Types Packs/Day Years Used Date Smoking Tobacco: Never Assessed Comments Unknown Sex and Gender Information Value Date Recorded Sex Assigned at Not on file Legal Sex Female 3:35 AM MACHINE BUFFER Gender Identity Not on file Sexual Orientation Not on file documented as of this encounter Plan of Treatment Not on file documented as of this encounter Visit Diagnoses Diagnosis Dysthymic disorder- Primary documented in this encounter Care Teams Surveyor Instrument Assistant Relationship Specialty Start Date End Date Jean Pierre Bolivar MD PCP - General Internal Medicine 09/16/17 10/29/20 documented as of this encounter
--- OUTSIDE RECORDS SUMMARY | 2025-03-25 09:26 | XMS_ITS | Encounter Summary ---
Author Organization [facility] Address [address] [place] [address] Care Team Providers Care Human Resource Professional Name Role Phone Jean Pierre Bolivar MD Primary Care Provider Nadiya dan Encounter Details Date Type Department Care Team (Latest Contact Info) Description 09/24/2004 Outpatient Historical [facility] [address] [place] [phone] Eladio Livingston MD NO ADDRESS ON FILE ADMINISTRTVE [place] NOS (Primary Dx) Social History Tobacco Use Types Packs/Day Years Used Date Smoking Tobacco: Never Assessed Comments Unknown Sex and Gender Information Value Date Recorded Sex Assigned at Not on file 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
--- OUTSIDE RECORDS SUMMARY | 2025-03-25 09:26 | XMS_ITS | Encounter Summary ---
Author Organization [facility] Address [address] [place] [address] Care Team Providers Care Process Development Manager Name Role Phone Jean Pierre Bolivar MD Primary Care Provider Nadiya dan Encounter Details Date Type Department Care Team (Late st Contact Info) Description 06/04/2004 Outpatient [facility] Amb[facility] [address] 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
--- OUTSIDE RECORDS SUMMARY | 2025-03-25 09:26 | XMS_ITS | Encounter Summary ---
Author Organization [facility] Address [address] [place] [address] Care Team Providers Care Excellence Specialist Name Role Phone Jean Pierre Bolivar MD Primary Care Provider Nadiya dan Encounter Details Date Type Department Care Team (Latest Contact Info) Description 05/09/2004 Outpatient Historical [facility] Neurology [address], [address] [place] [address] Des Hickey MD NO ADDRESS ON FILE PSYCHO EPI INTRACTABLE (CMS/HCC) (Primary Dx); DEPRESSIVE DISORDER NEC Social History Tobacco Use Types Packs/Day Years Used Date Smoking Tobacco: Never Assessed Comments Unknown Sex and Gender Information Value Date Recorded Sex Assigned at Not on file 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 Sex Female 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
--- OUTSIDE RECORDS SUMMARY | 2025-03-25 09:26 | XMS_ITS | Encounter Summary ---
Author Organization [facility] Address [address] [place] [address] Care Team Providers Care Sas Etl Developer Name Role Phone Jean Pierre Bolivar MD Primary Care Provider Nadiya dan Encounter Details Date Type Department Care Team (Latest Contact Info) Description 03/28/2004 Outpatient Historical [facility] Neurology [address], [address] [place] [address] Des Hickey MD NO ADDRESS ON FILE PSYCHO EPI INTRACTABLE (CMS/HCC) (Primary Dx) Social History Tobacco Use Types Packs/Day Years Used Date Smoking Tobacco: Never Assessed Comments Unknown Sex and Gender Information Value Date Recorded Sex Assigned at Not on file 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
--- OUTSIDE RECORDS SUMMARY | 2025-03-25 09:26 | XMS_ITS | Encounter Summary ---
Author Organization [facility] Address [address] [place] [address] Care Team Providers Care Four Horse Hitch Driver Name Role Phone Jean Pierre Bolivar MD Primary Care Provider Nadiya dan Encounter Details Date Type Department Care Team (Latest Contact Info) Description 09/26/2005 Outpatient Historical [facility] Neurology [address], [address] [place] [address] Des Hickey MD NO ADDRESS ON FILE Other Convulsions (CMS/HCC) (Primary Dx) Social History Tobacco Use Types Packs/Day Years Used Date Smoking Tobacco: Never Assessed Comments Unknown Sex and Gender Information Value Date Recorded Sex Assigned at Not on file 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
--- OUTSIDE RECORDS SUMMARY | 2025-03-25 09:26 | XMS_ITS | Encounter Summary ---
Author Organization [facility] Address [address] [place] [address] Care Team Providers Care Well Driller Helper Name Role Phone Jean Pierre Bolivar MD Primary Care Provider Nadiya dan Encounter Details Date Type Department Care Team ([facility] st Contact Info) Description 07/16/2004 Outpatient Historical [facility] [address] [place] [address] Social History Tobacco Use Types Packs/Day Years Used Date Smoking Tobacco: Never Assessed Comments Unknown Sex and Gender Information Value Date Recorded Sex Assigned at Not on file 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
--- OUTSIDE RECORDS SUMMARY | 2025-03-25 09:26 | XMS_ITS | Encounter Summary ---
Author Organization [facility] Address [address] [place] [address] Care Team Providers Care New Car Driver Name Role Phone Jean Pierre Bolivar MD Primary Care Provider Nadiya dan Encounter Details Date Type Department Care Team (Latest Contact Info) Description 03/16/2004 Outpatient Historical [facility] [address] [place] [phone] Juliano Strete MD [address] [place] [phone] BACKACHE NOS (Primary Dx); DYSTHYMIC DISORDER; CONVULSIONS, OTHER (CMS/HCC) Social History Tobacco Use Types Packs/Day Years Used Date Smoking Tobacco: Never Assessed Comments Unknown Sex and Gender Information Value Date Recorded Sex Assigned at Not on file Legal Sex Female 3:35 AM NURSE MANAGER Gender Identity Not on file Sexual Orientation Not on file documented as of this encounter Plan of Treatment Not on file documented as of this encounter Visit Diagnoses Diagnosis Backache, unspecified- Primary Dysthymic disorder Other convulsions documented in this encounter Care Teams New Car Driver Relationship Specialty Start Date End Date Jean Pierre Bolivar MD PCP - General Internal Medicine 09/16/17 10/29/20 documented as of this encounter
--- OUTSIDE RECORDS SUMMARY | 2025-03-25 09:27 | XMS_ITS | Encounter Summary ---
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
--- OUTSIDE RECORDS SUMMARY | 2025-03-25 09:27 | XMS_ITS | Encounter Summary ---
Author Organization [facility] Address [address] [place] [address] Care Team Providers Care Engine Watchman Name Role Phone Jean Pierre Bolivar MD Primary Care Provider Nadiya dan Encounter Details Date Type Department Care Team (Late st Contact Info) Description 07/04/2008 Emergency [facility] Emergency Department [address] [place] [address] Ed, Physician NO ADDRESS ON FILE Dayo Pabon DO NO ADDRESS ON FILE Social History Tobacco Use Types Packs/Day Years Used Date Smoking Tobacco: Never Assessed Comments Unknown Sex and Gender Information Value Date Recorded Sex Assigned at Not on file Legal Sex Female 3:35 AM ANNUAL CAMPAIGN MANAGER Gender Identity Not on file Sexual Orientation Not on file documented as of this encounter Plan of Treatment Not on file documented as of this encounter Procedures Procedure Name Priority Date/Time Associated Diagnosis Comments CT ABDOMEN PELVIS W CONTRAST Routine 07/04/2008 1:36 PM ANNUAL CAMPAIGN MANAGER CBC WITH DIFFERENTIAL Stat 07/04/2008 12:31 PM ANNUAL CAMPAIGN MANAGER COMPREHENSIVE METABOLIC PANEL Stat 07/04/2008 12:31 PM ANNUAL CAMPAIGN MANAGER documented in this encounter Results * CT ABDOMEN PELVIS W CONTRAST (07/04/2008 1:36 PM ANNUAL CAMPAIGN MANAGER) Anatomical Region Laterality Modality Abdomen Other 07/04/2008 1:36 PM ANNUAL CAMPAIGN MANAGER Narrative 07/05/2008 1:28 PM ANNUAL CAMPAIGN MANAGER Exam: CT Abdomen, Pelvis, w/contrast Date/Time of [...] (ABNORMAL) COMPREHENSIVE METABOLIC PANEL (07/04/2008 12:31 PM ANNUAL CAMPAIGN MANAGER) TOTAL PROTEIN 6.8 6.3 - 8.2 g/dL [facility] SODIUM 142 136 - 145 mEq/L [facility] BILIRUBIN TOTAL 0.2(L) 0.3 - 1.2 mg/dL [facility] BUN 6(L) 7 - 17 mg/dL [facility] CO2 26 22 - 32 mmol/l [facility] ANION GAP 8(L) 9 - 20 mEq/L [facility] AST 23 8 - 33 U/L [facility] POTASSIUM 4.1 3.5 - 5.0 mEq/L [facility] GLOBULIN (CALC) 2.5 2.4 - 3.9 g/dL [facility] ALBUMIN 4.3 3.5 - 5.0 g/dL [facility] CREATININE 0.9 0.7 - 1.2 mg/dL [facility] ALT 25 4 - 36 IU/L [facility] CALCIUM 9.6 8.4 - 10.5 mg/dL [facility] OSMOLALITY, CALCULATED 290 275 - 295 mOsm/Kg [facility] GLUCOSE 116(H) 70 - 110 mg/dL [facility] ALKALINE PHOSPHATASE 144(H) 25 - 100 U/L [facility] CHLORIDE 112(H) 95 - 110 mEq/L [facility] ALBUMIN/GLOBULIN RATIO 1.7 1.0 - 2.3 [facility] Blood specimen (specimen) 07/04/2008 12:31 PM ANNUAL CAMPAIGN MANAGER 07/04/2008 12:33 PM ANNUAL CAMPAIGN MANAGER us Dayo Pabon DO CHEMISTRY ORDERABLES Final R esult INTERFACE SYSTEM Refer to clinic/hospital department [facility] CLIA# [id number] [address] [place] [address] * (ABNORMAL) CBC WITH DIFFERENTIAL (07/04/2008 12:31 PM ANNUAL CAMPAIGN MANAGER) WBC 7.5 4.8 - 10.8 K/ul [facility] MCH 32.0 27.0 - 34.0 pg [facility] NEUTROPHIL ABSOLUTE 5.4 2.0 - 8.0 K/ul [facility] NEUTROPHILS 71.9 42.2 - 75.2 % [facility] HEMATOCRIT 38.3 36.0 - 46.0 % [facility] EOSINOPHILS 0.7 0.0 - 7.0 % [facility] PLATELETS 259 140 - 440 K/ul [facility] EOSINOPHIL ABSOLUTE 0.1 0.0 - 0.7 K/ul [facility] RBC 4.22 4.20 - 5.40 Mil/ul [facility] LYMPHOCYTES 21.0(L) 24.0 - 44.0 % [facility] MCHC 35.2(H) 30.0 - 35.0 g/dL [facility] LYMPHOCYTE ABSOLUTE 1.6 1.2 - 4.0 K/ul [facility] MCV 90.8 84.0 - 103.0 Fl [facility] MPV 9.8 8.9 - 12.8 Fl [facility] BASOPHILS ABSOLUTE 0.0 0.0 - 0.2 K/ul [facility] BASOPHILS 0.4 0.0 - 1.0 % [facility] HEMOGLOBIN 13.5 12.0 - 16.0 g/dL [facility] RDW 13.4 11.0 - 14.5 % [facility] MONOCYTE ABSOLUTE 0.5 0.1 - 0.6 K/ul [facility] MONOCYTES 6.0 2.0 - 10.0 % [facility] Blood specimen (specimen) 07/04/2008 12:31 PM ANNUAL CAMPAIGN MANAGER 07/04/2008 12:33 PM ANNUAL CAMPAIGN MANAGER Dayo Pabon DO HEMATOLOGY ORDERABLES Final Result INTERFACE SYSTEM Refer to clinic/hospital department [facility] CLIA# [id number] [address] [place] [address] documented in this encounter Visit Diagnoses Not on filedocumented in this encounter Care Teams Engine Watchman Relationship Specialty Start Date End Date Jean Pierre Bolivar MD PCP - General Internal Medicine 09/16/17 10/29/20 documented as of this encounter
--- OUTSIDE RECORDS SUMMARY | 2025-03-25 09:27 | XMS_ITS | Encounter Summary ---
Author Organization [facility] Address [address] [place] [address] Care Team Providers Care Huc Ob Name Role Phone Jean Pierre Bolivar MD Primary Care Provider Nadiya dan Encounter Details Date Type Department Care Team (Late st Contact Info) Description 07/01/2008 Emergency [facility] Emergency Department [address] [place] [address] Ed, Physician NO ADDRESS ON FILE Itzel Hilliard MD [address] [place] [phone] Social History Tobacco Use Types Packs/Day Years Used Date Smoking Tobacco: Never Assessed Comments Unknown Sex and Gender Information Value Date Recorded Sex Assigned at Not on file Legal Sex Female 3:35 AM IT SERVICE MANAGER Gender Identity Not on file Sexual Orientation Not on file documented as of this encounter Plan of Treatment Not on file documented as of this encounter Procedures Procedure Name Priority Date/Time Associated Diagnosis Comments CT ABDOMEN PELVIS W CONTRAST Routine 07/01/2008 7:16 PM IT SERVICE MANAGER CBC WITH DIFFERENTIAL Stat 07/01/2008 5:55 PM IT SERVICE MANAGER COMPREHENSIVE METABOLIC PANEL Stat 07/01/2008 5:55 PM IT SERVICE MANAGER documented in this encounter Results * CT ABDOMEN PELVIS W CONTRAST (07/01/2008 7:16 PM IT SERVICE MANAGER) Anatomical Region Laterality Modality Abdomen Other 07/01/2008 7:16 PM IT SERVICE MANAGER Narrative 07/01/2008 10:03 PM IT SERVICE MANAGER CT of the abdomen and pelvis with [...] (ABNORMAL) CBC WITH DIFFERENTIAL (07/01/2008 5:55 PM IT SERVICE MANAGER) RBC 4.27 4.20 - 5.40 Mil/ul [facility] MCHC 35.3(H) 30.0 - 35.0 g/dL [facility] LYMPHOCYTE ABSOLUTE 2.4 1.2 - 4.0 K/ul [facility] LYMPHOCYTES 30.2 24.0 - 44.0 % [facility] MCV 90.9 84.0 - 103.0 Fl [facility] BASOPHILS 0.4 0.0 - 1.0 % [facility] MPV 10.0 8.9 - 12.8 Fl [facility] BASOPHILS ABSOLUTE 0.0 0.0 - 0.2 K/ul [facility] HEMOGLOBIN 13.7 12.0 - 16.0 g/dL [facility] MONOCYTES 8.0 2.0 - 10.0 % [facility] RDW 13.6 11.0 - 14.5 % [facility] MONOCYTE ABSOLUTE 0.6 0.1 - 0.6 K/ul [facility] WBC 8.0 4.8 - 10.8 K/ul [facility] NEUTROPHILS 60.5 42.2 - 75.2 % [facility] MCH 32.1 27.0 - 34.0 pg [facility] NEUTROPHIL ABSOLUTE 4.9 2.0 - 8.0 K/ul [facility] HEMATOCRIT 38.8 36.0 - 46.0 % [facility] PLATELETS 291 140 - 440 K/ul [facility] EOSINOPHIL ABSOLUTE 0.1 0.0 - 0.7 K/ul [facility] EOSINOPHILS 0.9 0.0 - 7.0 % [facility] Blood specimen (specimen) 07/01/2008 5:55 PM IT SERVICE MANAGER 07/01/2008 5:55 PM IT SERVICE MANAGER us Itzel Hilliard MD HEMATOLOGY ORDERABLES Final Re sult INTERFACE SYSTEM Refer to clinic/hospital department [facility] CLIA# [id number] [address] [place] [address] * (ABNORMAL) COMPREHENSIVE METABOLIC PANEL (07/01/2008 5:55 PM IT SERVICE MANAGER) ALBUMIN/GLOBULIN RATIO 1.6 1.0 - 2.3 [facility] TOTAL PROTEIN 7.1 6.3 - 8.2 g/dL [facility] SODIUM 145 136 - 145 mEq/L [facility] BILIRUBIN TOTAL 0.3 0.3 - 1.2 mg/dL [facility] BUN 11 7 - 17 mg/dL [facility] CO2 25 22 - 32 mmol/l [facility] ANION GAP 15 9 - 20 mEq/L [facility] AST 22 8 - 33 U/L [facility] POTASSIUM 4.0 3.5 - 5.0 mEq/L [facility] GLOBULIN (CALC) 2.7 2.4 - 3.9 g/dL [facility] ALBUMIN 4.4 3.5 - 5.0 g/dL [facility] CREATININE 1.0 0.7 - 1.2 mg/dL [facility] ALT 27 4 - 36 IU/L [facility] CALCIUM 9.4 8.4 - 10.5 mg/dL [facility] OSMOLALITY, CALCULATED 297(H) 275 - 295 mOsm/Kg [facility] GLUCOSE 114(H) 70 - 110 mg/dL [facility] ALKALINE PHOSPHATASE 137(H) 25 - 100 U/L [facility] CHLORIDE 109 95 - 110 mEq/L [facility] Blood specimen (specimen) 07/01/2008 5:55 PM IT SERVICE MANAGER 07/01/2008 5:55 PM IT SERVICE MANAGER us Itezl Hilliard MD CHEMISTRY ORDERABLES Final Res ult INTERFACE SYSTEM Refer to clinic/hospital department [facility] CLIA# [id number] [address] [place] [address] documented in this encounter Visit Diagnoses Not on filedocumented in this encounter Care Teams Huc Ob Relationship Specialty Start Date End Date Jean Pierre Bolivar MD PCP - General Internal Medicine 09/16/17 10/29/20 documented as of this encounter
--- OUTSIDE RECORDS SUMMARY | 2025-03-25 09:27 | XMS_ITS | Clinical Summary ---
Author Organization [facility] Address [address] Attn: Epic Prelude ADT ASHA STUART [address] Care Team Providers Care Calker Name Role Phone Jean Pierre Bolivar MD [...] on file Legal Sex Female 12:26 PM PRODUCT DEVELOPER Gender Identity Not on file Sexual Orientation Not on file Last Filed Vital Signs Vital Sign Reading Time Taken Comments Blood Pressure 134/86 06/09/2020 1:47 PM PRODUCT DEVELOPER Pulse 70 06/09/2020 1:47 PM PRODUCT DEVELOPER Temperature 36.8 C (98.2 F) 02/23/2020 12:10 PM CDT Respiratory Rate 18 06/09/2020 1:47 PM PRODUCT DEVELOPER Oxygen Saturation - - Inhaled Oxygen Concentration - - Weight 59.9 kg (132 lb) 06/06/2020 9:13 AM PRODUCT DEVELOPER Height 160 cm (5' 3 ) 06/06/2020 9:13 AM PRODUCT DEVELOPER Body Mass Index 23.38 06/06/2020 9:13 AM PRODUCT DEVELOPER Plan of Treatment Health Maintenance Due Date [...] SCREENING 2019 09/02/2008 INFLUENZA VACCINE (#1) 2025 8, 05/07/2017, 04/06/2010 COLORECTAL SCREENING 06/09/2025 06/09/2020, 04/20/20 Colorectal Cancer Screening 06/09/2025 RSV VACCINE (60+ or ) (1 - 1-dose 75+ series) 2029 Procedures Procedure Name Priority Date/Time Associated Diagnosis Comments COLONOSCOPY REPORT 06/09/2020 1: 34 PM PRODUCT DEVELOPER MAMMO SCREEN BILAT W OR WO CAD Routine 03/23/2010 10:33 AM CDT Other screening mammogram XR DEXA BONE DENSITY AXIAL 1 OR MORE SITES Routine 09/02/2008 1:46 PM PRODUCT DEVELOPER Asymptomatic postmenopausal status from Last 3 Months or Most Recently Relevant to Health Maintenance Results * COLONOSCOPY REPORT (06/09/2020 1:34 PM PRODUCT DEVELOPER) Narrative Procedure Note Yohannes Morales MD - 06/09/2020 1:34 PM CST Procedures signed by Yohannes Morales MD at 06/09/2020 1:34 PM Author: Yohannes Morales MD Service: -- Author Type: Physician Filed: 06/09/2020 1:34 PM Date of Service: 06/09/2020 1:34 PM Status:Signed Technical Data Analyst: Yohannes Morales MD (Physician) Procedure Orders 1. COLONOSCOPY REPORT [[id number]] ordered by Yohannes Morales MDat 06/09/[address] [place] [address] GI Patient Name: Nena Mahan Procedure Date: [...] bowel preparation was evaluated using the BBPS ([place] Bowel Preparation Scale) with scores of: Right [...] 1:18:58 PM Scope Out: 1:26:47 PM [address] [place], [place] us Sg Scanning GI PROCEDURE ORDERABLES Edited R esult [...] was performed over 12 years ago. us Vannesas Bell MD MAMMO ORDERABLES Final Res ult * XR DEXA BONE DENSITY AXIAL 1 OR MORE SITES (09/02/2008 1:46 PM PRODUCT DEVELOPER) Anatomical Region Laterality Modality Other Impressions 09/03/2008 12:59 PM PRODUCT DEVELOPER Impression: The patient does not have osteoporosis [...] approximately two years. bahman - uploaded from [employer] - Narrative 09/03/2008 12:59 PM PRODUCT DEVELOPER DEXA Evaluation of the Lumbar Spine and [...] approximately two years. jaw - uploaded from [employer] - us Vannessa Bell MD DIAGNOSTIC IMAGING ORDERAB LES Final Result from Last 3 Months or Most Recently Relevant to Health Maintenance Care Teams Calker Relationship Specialty Start Date End Date Jean Pierre Bolivar MD NO ADDRESS ON FILE PCP - General Internal Medicine 09/16/17
--- OUTSIDE RECORDS SUMMARY | 2025-03-25 09:27 | XMS_ITS | Encounter Summary ---
Author Organization [facility] Address [address] [place] [address] Care Team Providers Care Tax Collection Coordinator Name Role Phone Jean Pierre Bolivar MD Primary Care Provider Nadiya dan Encounter Details Date Type Department Care Team (Late st Contact Info) Description 07/01/2008 Outpatient [facility] Ambulance [address] [place] [address] AMBULANCE, [facility] Social History Tobacco Use Types Packs/Day Years Used Date Smoking Tobacco: Never Assessed Comments Unknown Sex and Gender Information Value Date Recorded Sex Assigned at Not on file Legal Sex Female 3:35 AM FRAMEWORK DEVELOPER Gender Identity Not on file Sexual Orientation Not on file documented as of this encounter Plan of Treatment Not on file documented as of this encounter Visit Diagnoses Not on filedocumented in this encounter Care Teams Tax Collection Coordinator Relationship Specialty Start Date End Date Jean Pierre Bolivar MD PCP - General Internal Medicine 09/16/17 10/29/20 documented as of this encounter
--- OUTSIDE RECORDS SUMMARY | 2025-03-25 09:27 | XMS_ITS | Clinical Summary ---
Author Organization [facility] [address] [place] [address] Care Team Providers Care Software Systems Architect Name Role Phone Unavailable Primary Care Provider [...] on file Legal Sex Female 3:35 AM PRESSURE TESTING TECHNICIAN Gender Identity Not on file Sexual Orientation Not on file Last Filed Vital Signs Vital Sign Reading Time Taken Comments Blood Pressure 134/86 06/09/2020 1:47 PM PRESSURE TESTING TECHNICIAN Pulse 70 06/09/2020 1:47 PM PRESSURE TESTING TECHNICIAN Temperature 36.8 C (98.2 F) 02/23/2020 12:10 PM CDT Respiratory Rate 18 06/09/2020 1:47 PM PRESSURE TESTING TECHNICIAN Oxygen Saturation 99% 06/09/2020 1:47 PM PRESSURE TESTING TECHNICIAN Inhaled Oxygen Concentration - - Weight 59.9 kg (132 lb) 06/06/2020 9:13 AM PRESSURE TESTING TECHNICIAN Height 160 cm (5' 3 ) 06/06/2020 9:13 AM PRESSURE TESTING TECHNICIAN Body Mass Index 23.38 06/06/2020 9:13 AM PRESSURE TESTING TECHNICIAN Plan of Treatment Health Maintenance Due Date [...] 8, 05/07/2017, 04/06/2010 COLORECTAL SCREENING 06/09/2025 06/09/2020, 06/09/2020, 04/20/2020, Additional history exists Colorectal Cancer Screening 06/09/2025 Procedures Procedure Name Priority Date/Time Associated Diagnosis Comments COLONOSCOPY REPORT 06/09/2020 1: 34 PM PRESSURE TESTING TECHNICIAN MAMMO SCREEN BILAT W OR WO CAD Routine 03/23/2010 10:33 AM CDT Other screening mammogram XR DEXA BONE DENSITY AXIAL 1 OR MORE SITES Routine 09/02/2008 1:46 PM PRESSURE TESTING TECHNICIAN Post Menopausal Syndrome from Last 3 Months or Most Recently Relevant to Health Maintenance Results * COLONOSCOPY REPORT (06/09/2020 1:34 PM PRESSURE TESTING TECHNICIAN) Narrative Procedure Note Yohannes Morales MD - 06/09/2020 1:34 PM CST [facility] GI Patient Name: Nena Mahan [...] bowel preparation was evaluated using the BBPS ([place] Bowel Preparation Scale) with scores of: Right [...] 1:18:58 PM Scope Out: 1:26:47 PM [address] [place], [place] Yohannes Morales MD GI PROCEDURE ORDERABLES [...] 1 OR MORE SITES (09/02/2008 1:46 PM PRESSURE TESTING TECHNICIAN) Anatomical Region Laterality Modality Nuclear Medicine 09/02/2008 1:23 PM PRESSURE TESTING TECHNICIAN Impressions 09/03/2008 12:59 PM PRESSURE TESTING TECHNICIAN Impression: The patient does not have osteoporosis [...] approximately two years. jaw - uploaded from [employer] Scribe - Narrative 09/03/2008 12:59 PM PRESSURE TESTING TECHNICIAN DEXA Evaluation of the Lumbar Spine and [...] approximately two years. bahman - uploaded from [employer] - Vannessa Bell MD DIAGNOSTIC IMAGING ORDERAB LES Final Result from Last 3 Months or Most Recently Relevant to Health Maintenance Insurance [place] Member Subscriber Plan / Payer (Ef fective 2007-Present) Name:Nena Mahan Relation to Subscriber:Self Name:Nena Mahan Payer ID:[id number] Group ID:Not on file Type:Medicaid Address: [address] [place] Member Subscriber Plan / Payer (Ef fective 2007-Present) Name:Nena Mahan Relation to Subscriber:Self Name:NegritoNena Payer ID:[id number] Group ID:Not on file Type:Medicaid Address: [address] Advance Directives For more information, please contact: [phone] * Full Code (Latest Code Status on [...]
--- OUTSIDE RECORDS SUMMARY | 2025-03-25 09:27 | XMS_ITS | Encounter Summary ---
Author Organization [facility] Address [address] [place] [address] Care Team Providers Care Pot Room Tapper Name Role Phone Jean Pierre Bolivar MD Primary Care Provider Nadiya dan Encounter Details Date Type Department Care Team (Late st Contact Info) Description 01/14/2008 Emergency [facility] Emergency Department [address] 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
--- OUTSIDE RECORDS SUMMARY | 2025-03-25 09:27 | XMS_ITS | Encounter Summary ---
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
[2025-03-25 09:42] VITALS: BP 127/90; PULSE 83; RESP 16; TEMP 36.6; O2SAT 98; BMI 21.6
--- NOTE | 2025-03-25 09:47 | W.ED.RECABL ---
HPI - Recheck/Abnormal Lab/Rx General: Chief Complaint: Wound/Laceration Stated Complaint: stitch removal Time Seen by Provider: 03/25/25 09:25 Source: patient Mode of arrival: ambulatory Limitations: no limitations History of Present Illness: Patient is a 69-year-old female here for suture removal to her right lower leg. She received 3 stitches here approximately 10 days ago after her dog accidentally scratched her. She has been on antibiotics. She has noticed some redness around the wound edges but feels like this is slowly improving. She has not noticed any drainage. She feels like wound is healing well. complaint: suture/staple removal Initial visit (ago): day(s) Initial visit for: laceration Returns today for: staple/stitch removal Symptoms since prior visit: no new symptoms Associated symptoms: none Related Data Previous Rx's ?Medication ?Instructions ?Recorded diclofenac sodium 1 % topical gel 4 g topical QID PRN arthritis -- 10/03/23 inability to take NSAIDS orally #100 grams bupropion HCl 150 mg 24 hr tablet, 150 mg PO QAM #30 tabs 09/29/24 extended release (Wellbutrin XL) alendronate 70 mg tablet (Fosamax) 70 mg PO .once a week #12 tabs 01/04/25 cyclobenzaprine 10 mg tablet See Rx Instructions .Route 02/07/25 .COMPLEX #30 tabs ondansetron HCl 4 mg tablet See Rx Instructions .Route 02/21/25 .COMPLEX #10 tabs gabapentin 300 mg capsule 300 mg PO QDAY #30 caps 03/08/25 amoxicillin 875 mg-potassium 1 tab PO Q12H #20 tabs 03/15/25 clavulanate 125 mg tablet amitriptyline 100 mg tablet See Rx Instructions .Route 03/21/25 .COMPLEX #90 tabs omeprazole 40 mg capsule,delayed See Rx Instructions .Route 03/21/25 release .COMPLEX #90 caps Allergies Allergy/AdvReac Type Severity Reaction Status Date / Time latex Allergy Mild UNKNOWN Verified 02/04/25 08:16 citalopram (From Celexa) AdvReac Mild HIVES Verified 02/04/25 08:16 olanzapine (From Zyprexa) AdvReac Mild UNKNOWN Verified 02/04/25 08:16 Review of Systems Const: Denies: fever(s) Musc: Denies: extremity pain or extremity swelling Skin/Breast: Reports: other (healing laceration) Neuro: Denies: numbness in extremities, weakness in extremities, sensory changes or difficulty walking PFSH ED PFSH: Medical History Bilateral carpal tunnel syndrome Cervical radiculopathy due to degenerative joint disease of spine Primary osteoarthritis, right shoulder Osteoporosis Adrenal nodule Acromioclavicular joint arthritis Greater tuberosity of humerus fracture Benign essential HTN Dyslipidemia COPD (chronic obstructive pulmonary disease) History of neck swelling History of nausea Chronic neck pain Chronic back pain History of bowel disorder Bipolar 1 disorder Surgical History S/P carpal tunnel release Date of procedure: September 30, 2024 Pre-op diagnosis: Right carpal tunnel syndrome Procedure done: Right carpal tunnel release Surgeon: Ina Grewal MD History of hysterectomy History of intestinal surgery History of neck surgery Family History Sister Diabetes Cancer lung Hypothyroidism Mother Cancer breast Father CAD (coronary artery disease) Social History Smoking and tobacco/nicotine status: current every day tobacco/nicotine user (ABOUT 5 CIGARETTES A DAY) cigarettes Quit status (tobacco/nicotine): has quit using Year quit tobacco: 2016 Alcohol intake: current Alcohol intake frequency: few times a week Substance/Drug Use: current Substance/Drug use frequency: daily Lives independently: Yes Household members: none Marital status: Number of children: 2 Number of grandchildren: 1 Physical Exam Const: COMMON NORMALS: no acute distress, average body habitus, no limitations, healthy appearing, alert and well nourished Extremity: COMMON NORMALS: full ROM, capillary refill normal, no clubbing, cyanosis or edema, no calf tenderness and no pedal edema GENERAL: Yes normal exam except as noted OTHER: healing laceration anterior R LE; 3 intact sutures; erythema localized to wound edges; no streaking/discharge present Neuro: COMMON NORMALS: moves all extremities, no focal motor deficits, no sensory deficits noted and gait normal SENSORIUM/ORIENTATION: Yes alert Skin: NARRATIVE SKIN EXAM: see above Course Vital Signs: Vital signs: Vital Signs Temperature 97.9 F 03/25/25 09:42 Pulse Rate 83 03/25/25 09:42 Respiratory Rate 16 03/25/25 09:42 Blood Pressure 127/90 03/25/25 09:42 Pulse Oximetry 98 03/25/25 09:42 Oxygen Delivery Me thod Room Air 03/25/25 09:42 MDM - Recheck/Abnormal Lab/Rx Medical Decision Making Wound seems to be healing well. Sutures removed without difficulty. Continued wound care/infection precautions discussed. Differential Diagnosis Likely encounter for wound recheck and encounter for removal of sutures Medical Records I reviewed the patient's medical records. No radiology studies performed this visit Discharge Plan Discharge Patient Disposition: Home Clinical Impression: Visit for suture removal Condition: Stable Prescriptions: No Action diclofenac sodium 1 % gel 4 g topical QID PRN (Reason: arthritis -- inability to take NSAIDS orally) Qty: 100 2RF Rx Instructions: apply to single shoulder, elbow, wrist or hand; bupropion HCl [Wellbutrin XL] 150 mg tablet extended release 24 hr 150 mg PO QAM Qty: 30 0RF alendronate [Fosamax] 70 mg tablet 70 mg PO .once a week Qty: 12 3RF cyclobenzaprine 10 mg tablet See Rx Instructions .ROUTE .COMPLEX Qty: 30 3RF Dose Instruction: TAKE 1 TABLET BY MOUTH EVERY EVENING NEEDED FOR MUSCLE SPASMS Rx Instructions: TAKE 1 TABLET BY MOUTH EVERY EVENING NEEDED FOR MUSCLE SPASMS ondansetron HCl 4 mg tablet See Rx Instructions .ROUTE .COMPLEX Qty: 10 0RF Dose Instruction: TAKE 1 TABLET BY MOUTH EVERY 8 HOURS NEEDED FOR NAUSEA AND VOMITING Rx Instructions: TAKE 1 TABLET BY MOUTH EVERY 8 HOURS NEEDED FOR NAUSEA AND VOMITING gabapentin 300 mg capsule 300 mg PO QDAY Qty: 30 2RF Rx Instructions: take one tab QAM omeprazole 40 mg capsule,delayed release(DR/EC) See Rx Instructions .ROUTE .COMPLEX Qty: 90 1RF Dose Instruction: take 1 capsule BY MOUTH EVERY DAY Rx Instructions: take 1 capsule BY MOUTH EVERY DAY amitriptyline 100 mg tablet See Rx Instructions .ROUTE .COMPLEX Qty: 90 1RF Dose Instruction: TAKE 1 TABLET BY MOUTH EVERY DAY at 9pm Rx Instructions: TAKE 1 TABLET BY MOUTH EVERY DAY at 9pm amoxicillin-pot clavulanate 875-125 mg tablet 1 tab PO Q12H Qty: 20 0RF Discharge Orders: Discharge ED (Routine); Ordered 03/25/25 Ordered By: Celia Kramer Referrals: Emily Franco MD [Primary Care Provider, Family Practice] Patient Instructions: Patient Portal & Kate Instructions Activity Restrictions/Additional Instructions: Continue to keep wound clean with warm soap and water monitor for worsening redness, discharge, increasing pain. Please seek medical reevaluation of these occur. Print Language: Chinese Coding Level of Care Code ED Administration Specialist for Amy Gomez
== END 2025-03-25 10:13 | disposition home or self-care (01) ==
PROVIDERS: Emergency Provider Physician Assistant; PCP Family Medicine
DX: Z48.02 Encounter for removal of sutures (principal); F17.210 Nicotine dependence, cigarettes, uncomplicated; J44.9 Chronic obstructive pulmonary disease, unspecified; E78.5 Hyperlipidemia, unspecified; I10 Essential (primary) hypertension
CPT/HCPCS: 99281

== ENCOUNTER → 2025-05-13 07:46 | Outpatient (BNVA) | payer MEDICARE, MEDICAID, SELFPAY | PROVIDERS: PCP Family Medicine; Visit Provider Nurse Practitioner | DX: M19.011 Primary osteoarthritis, right shoulder (principal) | CPT/HCPCS: 20610; J1100; J2795; J3301; J9999 ==

== ENCOUNTER → 2025-05-24 09:54 | Outpatient (BNVA) | payer MEDICARE, MEDICAID, SELFPAY | PROVIDERS: PCP Family Medicine; Visit Provider Anesthesiology Pain Medicine | DX: M50.321 Other cervical disc degeneration at C4-C5 level (principal); M47.22 Other spondylosis with radiculopathy, cervical region; M54.9 Dorsalgia, unspecified; G89.29 Other chronic pain | CPT/HCPCS: 72040; 99214 ==